=== PATIENT | male | born 1950 | race Caucasian/White ===

== ENCOUNTER → 2017-01-29 | Outpatient (CLI) | payer BC ==
[~2017-01-29] MED LIST: AMLO-110 PO; ASPI325T45 PO; ESCI10TA17 PO; FLEC50TA20 PO; LORA-741 PO; LOSA1TAB38 PO; METO50TA16 PO
[2017-01-29 13:23] LABS: HEMATOCRIT 43.5 % (42-52); MEAN CELL VOLUME 89.7 fL (80-100); MEAN CORPUSCULAR HGB CONC 35.6 g/dl (32-36); PLATELET COUNT 207 K/uL (130-400); RED BLOOD COUNT 4.85 M/uL (4.7-6.1); WHITE BLOOD COUNT 5.17 K/uL (4.8-10.8)
[2017-01-29 13:42] LABS: ALT/SGPT 30 U/L (12-78); BLOOD UREA NITROGEN 12 mg/dl (7-18); CALCIUM 8.5 mg/dl (8.5-10.1); CARBON DIOXIDE 25 mmol/L (21-32); CHLORIDE 100 mmol/L (98-107); CHOLESTEROL 180 mg/dl (0-200); CREATININE 0.96 mg/dl (0.60-1.40); GLUCOSE 95 mg/dl (70-99); POTASSIUM 4.3 mmol/L (3.5-5.1); SODIUM 133 mmol/L (136-145)
[2017-01-29 13:52] LABS: ALB/GLOB RATIO 1.3 (0.9-2); ALKALINE PHOSPHATASE 52 U/L (45-117); AST/SGOT 26 U/L (15-37); CHOLESTEROL/HDL RATIO 3.1; HDL CHOLESTEROL 58 mg/dl; LDL CHOLESTEROL CALCULATED 109 mg/dl; THYROID STIMULATING HORMONE 0.662 uIu/ml (0.300-4.500); TRIGLYCERIDES 64 mg/dl (0-150); VERY LOW DENSITY LIPOPROT CALC 13 mg/dl
--- NOTE | 2017-02-05 07:14 | CODING QUERY MEDICAL NECESSITY ---
SUPPORTING DIAGNOSIS NEEDED A supporting diagnosis is required for the test/procedure performed on this patient in order for us to be reimbursed by the patient's insurance. Please provide a supporting diagnosis for the following test/procedure listed below next to the test name along with your signature. *If there is no additional diagnosis for this patient that would support the following test/procedure please document that below next to the test/procedure. Test(s)/Procedure(s) that require a supporting diagnosis: * PSA DIAGNOSIS: * DOS: 01/29/17 Provider Signature: Date: Thank you Noy Rascon [facility] Once completed, please kindly fax back to [phone] For questions please call [phone]
== END | disposition home or self-care (01) ==
LOC: C.LABBC 09:29
PROVIDERS: ATTEND Internal Medicine Geriatric Medicine
DX: Z00.00 Encounter for general adult medical examination without abnormal findings (principal); I10 Essential (primary) hypertension; I71.2 Thoracic aortic aneurysm, without rupture; I48.0 Paroxysmal atrial fibrillation; E87.1 Hypo-osmolality and hyponatremia; Z12.5 Encounter for screening for malignant neoplasm of prostate

== ENCOUNTER → 2017-02-10 | Outpatient (CLI) | payer BC ==
--- NOTE | 2017-02-10 12:09 | DIAGNOSTIC IMAGING REPORT ---
CHEST 2 VIEWS ROUTINE CLINICAL HISTORY: J06.9 Acute upper respiratory infection dyspnea COMPARISON STUDY: 08/17/2015 FINDINGS: Possible small parenchymal infiltrate versus nodule right upper lung. Lungs otherwise appear clear. Mild emphysematous change. IMPRESSION: Small parenchymal infiltrate versus potential overlap/nodular process right suprahilar region. CT of the chest is recommended as follow-up Electronically signed by: Sean Marcus M.D. 02/10/2017 12:08 PM Dictated Date/Time: 02/10/2017 12:07 PM
== END | disposition home or self-care (01) ==
LOC: C.RADBC 11:49
PROVIDERS: ATTEND Internal Medicine Geriatric Medicine
DX: J06.9 Acute upper respiratory infection, unspecified (principal); R91.8 Other nonspecific abnormal finding of lung field

== ENCOUNTER → 2017-02-13 | Outpatient (CLI) | payer BC ==
[~2017-02-13] MED LIST changes: +OPTIRAY 320 IV PRN
--- NOTE | 2017-02-13 15:43 | DIAGNOSTIC IMAGING REPORT ---
CT SCAN OF THE CHEST WITH IV CONTRAST CLINICAL HISTORY: Abnormal chest x-ray. COMPARISON STUDY: Chest CT dated 01/08/2016. TECHNIQUE: Following the IV administration of 93 chest x-ray dated 02/10/2017. cc of Optiray 320, CT scan of the thorax was performed from the thoracic inlet to the upper abdomen. Images are reviewed in the axial, sagittal, and coronal planes. IV contrast was administered without complication. CT DOSE: 625.17 mGycm FINDINGS: Thyroid: Imaged portions of the thyroid gland are normal in size and attenuation. Thoracic aorta: There is mild aneurysmal dilatation of the ascending thoracic aorta which measures up to 4.5 cm in diameter. The right of the thoracic aorta is normal in caliber in the arch demonstrates standard 3-vessel anatomy. No dissection is seen. Pulmonary vasculature: The pulmonary trunk is normal in caliber. There are no filling defects identified in the central pulmonary vessels to indicate pulmonary embolus. Note that this examination was not protocoled for evaluation of the pulmonary arteries. Heart: The heart is enlarged and there is trace pericardial effusion. There are coronary artery calcifications. Lungs and pleural spaces: There is no airspace consolidation or pleural effusion. The trachea and central airways are clear. A 3 mm pulmonary nodule in the lingula on image #183 and a 3 mm pleural-based nodule in the lingula on image #191 are unchanged. Dependent atelectasis is observed. There is no concerning lesion identified in the right upper lobe at the site of the radiographically question abnormality. Mediastinum: There is no mediastinal lymphadenopathy. Laurence: Clear. Axillae: There is no axillary lymphadenopathy. Upper abdomen: There is a small hiatal hernia. A 1.5 cm cyst is noted in the left lobe of the liver. Partially visualized upper abdominal viscera is otherwise within normal limits. Skeletal structures: The skeletal structures are osteopenic. No lytic or blastic bony lesions are seen. IMPRESSION: 1. There is no concerning pulmonary lesion identified. The right upper lobe abnormality questioned by x-ray on 02/10/2017 was likely artifactual. 2. Cardiomegaly. 3. There is mild aneurysmal dilatation of the ascending thoracic aorta which measures up to 4.5 cm. Nonemergent thoracic surgical assessment is recommended. 4. The remainder of the thoracic aorta is normal in caliber. 5. There is no airspace consolidation or pleural effusion. 6. There are low suspicion 3 mm pulmonary and pleural-based nodules in the lingula which are unchanged. These can be followed if clinically warranted. See below. Please refer to below summary of Fleischner criteria recommendations for follow-up of incidental CT nodules (Jorge Kay, Guidelines for management of small pulmonary nodules detected on CT scans: A statement from the Fleischner Society, Radiology 237: [phone].) Low Risk Patient: Minimal or no smoking or other known risk factors for malignancy <=4 mm: No follow-up needed. >4-6 mm: Initial follow-up CT at 12 months; if unchanged, no further follow-up. >6-8 mm: Initial follow-up CT at 6-12 months then at 18-24 months if no change. >8 mm: Follow-up CT at \R\3, 9, 24 months, or PET and/or biopsy. High Risk Patient: History of smoking or other known risk factors <=4 mm: Follow-up at 12 months; if unchanged, no further follow-up. >4-6 mm: Initial follow-up CT at 6-12 months then at 18-24 months if no change. >6-8 mm: Initial follow-up CT at 3-6 months then at 9-12 and 24 months if no change. >8 mm: Same as low risk patient. Note: Nodule size measured as average of length and width. Ground glass or partly solid nodules may require longer follow-up to exclude indolent adenocarcinoma. Electronically signed by: Zechariah Stevens M.D. 02/13/2017 3:42 PM Dictated Date/Time: 02/13/2017 3:35 PM
== END | disposition home or self-care (01) ==
LOC: C.CTS 13:28
PROVIDERS: ATTEND Internal Medicine Geriatric Medicine
DX: R93.8 Abnormal findings on diagnostic imaging of other specified body structures (principal); I51.7 Cardiomegaly; R91.8 Other nonspecific abnormal finding of lung field; I71.2 Thoracic aortic aneurysm, without rupture

== ENCOUNTER → 2017-05-06 | Outpatient (CLI) | payer BC ==
[~2017-05-06] MED LIST changes: -OPTIRAY 320 IV PRN
== END | disposition home or self-care (01) ==
LOC: C.LABBC 08:19
PROVIDERS: ATTEND Internal Medicine Geriatric Medicine
DX: Z11.59 Encounter for screening for other viral diseases (principal); L03.115 Cellulitis of right lower limb

== ENCOUNTER → 2017-05-06 | Outpatient (CLI) | payer BC ==
--- NOTE | 2017-05-06 15:59 | DIAGNOSTIC IMAGING REPORT ---
RIGHT ANKLE 3 VIEWS CLINICAL HISTORY: Cellulitis. Laceration. FINDINGS: 3 views of the right ankle are obtained. No prior studies are available for comparison at the time of dictation. The skeletal structures are osteopenic. No fracture is identified. The ankle mortise is intact. No periostitis or bony erosion is seen. There is no joint effusion. Soft tissue edema is present in the calf and around the ankle. IMPRESSION: Soft tissue swelling with no acute bony abnormality identified. Electronically signed by: Zechariah Stevens M.D. 05/06/2017 3:58 PM Dictated Date/Time: 05/06/2017 3:56 PM
== END | disposition home or self-care (01) ==
LOC: C.RADBC 15:34
PROVIDERS: ATTEND Physician Assistant
DX: L03.115 Cellulitis of right lower limb (principal)

== ENCOUNTER → 2017-06-27 | Outpatient (CLI) | payer BC ==
--- NOTE | 2017-06-27 10:30 | DIAGNOSTIC IMAGING REPORT ---
KUB CLINICAL HISTORY: 67 years-old Male presenting with History of kidney stones. TECHNIQUE: Single supine view of the abdomen was obtained. COMPARISON: 07/11/2015. FINDINGS: Stool mildly degrades evaluation for renal calcifications. 3 mm calcification projects over the right kidney, likely consistent with calculus. Nonobstructive bowel gas pattern. No gross pneumoperitoneum. Lung bases clear. Numerous surgical clips project over the right inguinal region. IMPRESSION: 1. Unchanged appearance of the small right renal calculus. Electronically signed by: Moise Bowens M.D. 06/27/2017 10:29 AM Dictated Date/Time: 06/27/2017 10:27 AM
[2017-06-27 13:39] LABS: URINE APPEARANCE CLEAR (CLEAR); URINE BILIRUBIN NEG (NEG); URINE COLOR YELLOW; URINE NITRITE NEG (NEG); URINE PH 7.5 (4.5-7.5); URINE SPECIFIC GRAVITY 1.016 (1.000-1.030); UROBILINOGEN NEG (NEG)
[2017-06-27 13:44] LABS: MANUAL MICROSCOPIC REQUIRED? NO; REVIEW REQ? NO
== END | disposition home or self-care (01) ==
LOC: C.RADBC 09:59
PROVIDERS: ATTEND Physician Assistant Medical
DX: M54.5 Low back pain (principal); Z87.442 Personal history of urinary calculi

== ENCOUNTER → 2017-08-28 | Outpatient (CLI) | payer BC ==
[2017-08-28 13:41] LABS: ALB/GLOB RATIO 1.3 (0.9-2); ALT/SGPT 24 U/L (12-78); AST/SGOT 17 U/L (15-37); BLOOD UREA NITROGEN 12 mg/dl (7-18); BUN/CREATININE RATIO 14.4 (10-20); CALCIUM 8.5 mg/dl (8.5-10.1); CARBON DIOXIDE 21 mmol/L (21-32); CHLORIDE 102 mmol/L (98-107); CREATININE 0.83 mg/dl (0.60-1.40); GLUCOSE 96 mg/dl (70-99); POTASSIUM 4.5 mmol/L (3.5-5.1); SODIUM 131 mmol/L (136-145)
[2017-08-28 13:44] LABS: ALKALINE PHOSPHATASE 58 U/L (45-117); CHOLESTEROL 198 mg/dl (0-200); CHOLESTEROL/HDL RATIO 3.2; HDL CHOLESTEROL 62 mg/dl; LDL CHOLESTEROL CALCULATED 122 mg/dl; TRIGLYCERIDES 69 mg/dl (0-150); VERY LOW DENSITY LIPOPROT CALC 14 mg/dl
[2017-08-28 15:59] LABS: LYME DISEASE AB IGG NEG (NEG); LYME DISEASE AB IGM NEG (NEG)
== END | disposition home or self-care (01) ==
LOC: C.LABBC 10:18
PROVIDERS: ATTEND Internal Medicine Geriatric Medicine
DX: I10 Essential (primary) hypertension (principal); E87.1 Hypo-osmolality and hyponatremia; I25.10 Atherosclerotic heart disease of native coronary artery without angina pectoris; T14.8 Other injury of unspecified body region; W57.XXXA Bitten or stung by nonvenomous insect and other nonvenomous arthropods, initial encounter

== ENCOUNTER → 2017-11-05 | Outpatient (CLI) | payer BC ==
--- NOTE | 2017-11-05 09:34 | DIAGNOSTIC IMAGING REPORT ---
L FINGER(S) MIN 2 VIEWS ROUTINE CLINICAL HISTORY: Left thumb pain. No known trauma. COMPARISON: None FINDINGS: Alignment of the left thumb is anatomic. No fracture is identified. An 8 mm ovoid sclerotic focus within the distal phalanx of the left thumb has benign imaging characteristics. There is a 1.3 cm lucent lesion with thin sclerotic rim within the base of the left first metacarpal. There is moderate joint space narrowing and osteophytosis of the left first carpometacarpal joint. IMPRESSION: 1. 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 2. 1.3 cm lucent lesion with thin sclerotic margin within the base of the left first metacarpal. This has benign imaging characteristics and reflect a benign lucent lesion or be related to osteoarthritis of the adjacent joint. Electronically signed by: Panchito Juarez M.D. 11/05/2017 9:33 AM Dictated Date/Time: 11/05/2017 9:29 AM
== END | disposition home or self-care (01) ==
LOC: C.RADBC 09:02
PROVIDERS: ATTEND Physician Assistant
DX: M79.645 Pain in left finger(s) (principal)

== ENCOUNTER → 2018-01-20 | Outpatient (CLI) | payer BC ==
[~2018-01-20] MED LIST changes: +AMLODIPINE PO; +ASPI325T39 PO; +LOSARTAN POTASSIUM PO; +METOPROLOL PO; +OMEG10007 PO; +OPTIRAY 320 IV PRN; +TURM1CAP4 PO
--- NOTE | 2018-01-20 11:46 | DIAGNOSTIC IMAGING REPORT ---
CT CHEST ANGIO WITH CONTRAST CT DOSE: 829.30 mGycm CLINICAL HISTORY: Aneurysm of the ascending thoracic aorta TECHNIQUE: CT angiography was performed in a dynamic helical fashion during intravenous administration of 93 cc of Optiray 320. MIP imaging was performed. A dose lowering technique was utilized adhering to the principles of ALARA. COMPARISON STUDY: January 2017 FINDINGS: No thyroid masses are visualized. There is mild aneurysmal dilatation of the ascending thoracic aorta which measures 44 mm in diameter. This remains unchanged the prior study. There are notable flaps to indicate an aortic dissection. The heart is mildly enlarged. There are minimal coronary artery calcifications. There are no pathologically enlarged, axillary, mediastinal, or hilar lymph nodes. There are no pleural effusions. There is no focal pulmonary consolidation. There are mild dependent atelectatic changes. There are few scattered tiny pulmonary nodules within the right middle lobe and lingula, the largest of which measures 4 mm. In a low risk patient, no further follow-up is indicated. IMPRESSION: 1. Stable mild aneurysmal dilatation of the ascending thoracic aorta which measures 4.5 cm 2. No evidence of pathologic adenopathy 3. Stable mild cardiomegaly 4. Stable low suspicion subcentimeter pulmonary nodules. The absence of high risk factors, no further follow-up is indicated Electronically signed by: Byron Navarro M.D. 01/20/2018 11:45 AM Dictated Date/Time: 01/20/2018 11:38 AM
== END | disposition home or self-care (01) ==
LOC: C.CTS 10:22
PROVIDERS: ATTEND Specialist
DX: I71.2 Thoracic aortic aneurysm, without rupture (principal); I51.7 Cardiomegaly; R91.8 Other nonspecific abnormal finding of lung field

== ENCOUNTER → 2018-02-02 | Day surgery (SDC) | payer BC ==
[2018-01-21 07:41] VITALS: Ht 182.9 cm; Wt 107.3 kg
[~2018-02-02] VITALS: Ht 182.9 cm; Wt 107.3 kg
[~2018-02-02] MED LIST changes: -AMLO-110 PO; +APIX1TAB3 PO; -ASPI325T45 PO; +ATROPINE SULFATE 0.1 MG/ML 5ML SYR IV PRN; +CEFAZOLIN 2000MG IV PUSH 15 ML IV SCH; -ESCI10TA17 PO; +EpHEDrine SULFATE INJ 50 MG/ML AMP IV PRN; +FENTANYL CITRATE INJ 50 MCG/1 ML 2 ML VIAL ONE; +LACTATED RINGER'S 1000ML 1,000 ML IV SCH; +LIDOCAINE HCL 2% 2 ML VIAL (20MG/ML) ONE; +LIDOCAINE HCL 2% LOCAL 20 ML VIAL ONE; -LORA-741 PO; -LOSA1TAB38 PO; -METO50TA16 PO; +METOCLOPRAMIDE HCL INJ 5 MG/ML 2 ML VIAL IV PRN; +MIDAZOLAM HCL 1 MG/ML 2ML VIAL ONE; +ONDANSETRON INJ 2 MG/ML 2 ML VIAL IV PRN; -OPTIRAY 320 IV PRN; +PROPOFOL IV EMULSION 10 MG/ML 20 ML VIAL IV ONE; +SODIUM CHLORIDE 0.9% 1000ML 1,000 ML IV SCH; +TRAMADOL HCL 50 MG TAB PO PRN
--- NOTE | 2018-02-02 06:13 | Discharge Instructions ---
Discharge Instructions Date of Service Feb 02, 2018. Visit Reason for Visit: Left Thumb Gnaglion Cyst Discharge Discharge Diagnosis / Problem: Excision ganglion thumb Discharge Goals Goal(s): Decrease discomfort, Improve function Activity Recommendations Activity Limitations: as noted below Anesthesia . Post Anesthesia Instructions: If you have had General Anesthesia or IV Sedation: * Do not drive today. * Resume driving when surgeon permits. * Do not make important decisions or sign legal documents today. * Call surgeon for: 1. Temperature elevations greater than 101 degrees F. 2. Uncontrollable pain. 3. Excessive bleeding. 4. Persistent nausea and vomiting. 5. Medication intolerance (nausea, vomiting or rash). * For nausea and vomiting use only clear liquids such as: tea, soda, bouillon until nausea subsides, then gradually increase diet as tolerated. * If you have any concerns or questions, call your surgeon's office. If physician is unavailable and it is an emergency, call 911 or go to the nearest emergency room. . Instructions / Follow-Up Instructions / Follow-Up keep dressing on for 3 days then may remove and shower, cover with a band-aid, follow-up in [address] Back Diet Recommendations Recommended Home Diet: no limitations Pending Studies Studies pending at discharge: no Medical Emergencies . Who to Call and When: Medical Emergencies: If at any time you feel your situation is an emergency, please call 911 immediately. . Non-Emergent Contact Non-Emergency issues call your: Surgeon Call Non-Emergent contact if: wound has increased drainage, wound has increased redness . . "Provider Documentation" section prepared by Ant Back. .
--- NOTE | 2018-02-02 06:41 | History & Physical Bridge - SC ---
H&P Re-Evaluation Bridge Note: I have examined the patient, reviewed the History & Physical and in the interval since the performance of the History & Physical I have noted the following changes of clinical significance: No changes noted
--- NOTE | 2018-02-02 07:15 | [facility] Post Operative Brief Note ---
Immediate Operative Summary Operative Date Feb 02, 2018. Pre-Operative Diagnosis Left Thumb Ganglion Cyst Post-Operative Diagnosis same Procedure(s) Performed Left Thumb Ganglion Cyst Excision Surgeon Dr. Harry Back Tanker Driver Surgeon(s) [facility] Estimated Blood Loss 5CC Findings Consistent with Post-Op Diagnosis Specimens NONE Anesthesia Type MAC Complication(s) none Disposition Disposition: Recovery Room / PACU
[2018-02-02 07:17] VITALS: TEMP 36.5
[2018-02-02 07:52] VITALS: BP 135/80; PULSE 45; O2SAT 97
--- NOTE | 2018-02-02 08:00 | Anesthesia Progress Nt - [facility] ---
Anesthesia Post Op Note Date & Time Feb 02, 2018 at 08:00 Vital Signs Pain Intensity: 0 Vital Signs Past 12 Hours Date Time Temp Pulse Resp B/P (MAP) Pulse Ox O2 Delivery O2 Flow Rate FiO2 02/02/18 07:52 45 16 135/80 (98) 97 Room Air 02/02/18 07:17 36.5 46 16 110/65 (80) 94 Room Air 02/02/18 06:30 36.8 48 16 154/93 (113) 98 Room Air Notes Mental Status: alert / awake / arousable, participated in evaluation Pt Amnestic to Procedure: Yes Nausea / Vomiting: adequately controlled Pain: adequately controlled Airway Patency, RR, SpO2: stable & adequate BP & HR: stable & adequate Hydration State: stable & adequate Anesthetic Complications: no major complications apparent
--- NOTE | 2018-02-02 18:13 | OPERATIVE REPORT ---
DATE OF OPERATION: 02/02/2018 PREOPERATIVE DIAGNOSIS: Ganglion cyst of the left thumb. POSTOPERATIVE DIAGNOSIS: Same. PROCEDURE: Excision ganglion cyst of the left thumb. SURGEON: Dr. Ant Back. HORSE RACE TIMER: None. ANESTHESIA: Local with sedation. COMPLICATIONS: None. CONDITION: Stable to PACU. INDICATIONS: Lobito is a pleasant 67-year-old male who presented to my office with complaints of a mass on the radial aspect of his left thumb. Clinical examination was diagnostic for a ganglion cyst. After failing conservative treatment, he elected to undergo open excision. DESCRIPTION OF PROCEDURE: On 02/02/2018, he arrived at [facility] for the above procedure. He was seen in the preoperative holding and the operative extremity was identified and signed, given a preoperative antibiotic, taken back to the operating room, laid on the table in supine position, and given a basic sedation. The left thumb was then prepped and draped in sterile fashion. A time-out was done, the patient's operative extremity was properly identified. A digital block was done using 5 mL of lidocaine. A small incision was then made directly over the ganglion. Dissection was taken down through the fascia with care not to disrupt the digital nerves. The ganglion was identified and easily excised. There was a rather large ganglion. Care was taken to ensure complete excision of the stalk. The wound was then irrigated, closed with 4-0 nylon suture. I then placed in a soft dressing and taken to the postanesthesia care unit in stable condition. He tolerated the procedure well. I attest to the content of the Intraoperative Record and any orders documented therein. Any exception s are noted below.
== END | disposition home or self-care (01) ==
LOC: X.SURG 06:15
PROVIDERS: ATTEND Orthopaedic Surgery
DX: M67.442 Ganglion, left hand (principal); I48.91 Unspecified atrial fibrillation; I10 Essential (primary) hypertension; F32.9 Major depressive disorder, single episode, unspecified; Z88.8 Allergy status to other drugs, medicaments and biological substances; M06.9 Rheumatoid arthritis, unspecified; Z79.82 Long term (current) use of aspirin

== ENCOUNTER 2018-04-11 07:53 | Emergency (ER) | payer BC ==
[~2018-04-11] VITALS: Ht 182.9 cm; Wt 106.8 kg
[~2018-04-11 07:53] MED LIST changes: -ATROPINE SULFATE 0.1 MG/ML 5ML SYR IV PRN; -CEFAZOLIN 2000MG IV PUSH 15 ML IV SCH; -EpHEDrine SULFATE INJ 50 MG/ML AMP IV PRN; -FENTANYL CITRATE INJ 50 MCG/1 ML 2 ML VIAL ONE; -LACTATED RINGER'S 1000ML 1,000 ML IV SCH; -LIDOCAINE HCL 2% 2 ML VIAL (20MG/ML) ONE; -LIDOCAINE HCL 2% LOCAL 20 ML VIAL ONE; -METOCLOPRAMIDE HCL INJ 5 MG/ML 2 ML VIAL IV PRN; -MIDAZOLAM HCL 1 MG/ML 2ML VIAL ONE; -ONDANSETRON INJ 2 MG/ML 2 ML VIAL IV PRN; -PROPOFOL IV EMULSION 10 MG/ML 20 ML VIAL IV ONE; -SODIUM CHLORIDE 0.9% 1000ML 1,000 ML IV SCH; -TRAMADOL HCL 50 MG TAB PO PRN
[2018-04-11 07:58] VITALS: TEMP 36.4; Ht 182.9 cm; Wt 106.8 kg
[2018-04-11 08:15] VITALS: O2SAT 98
[2018-04-11] MEDS ORDERED: SODIUM CHLORIDE 0.9% 1000ML 1,000 ML IV STA (08:18)
[2018-04-11] MEDS ORDERED: MECLIZINE HCL 25 MG TAB PO STA (08:18)
[2018-04-11] MEDS ORDERED: ONDANSETRON INJ 2 MG/ML 2 ML VIAL IV STA (08:18)
[2018-04-11] MEDS ORDERED: SODIUM CHLORIDE 0.9% 500ML 500 ML IV STA (08:20)
[2018-04-11 08:44] LABS: BASO % 0.2 %; BASO ABS # 0.01 K/uL (0-0.2); EOS % 0.7 %; EOS ABS # 0.04 K/uL (0-0.5); HEMOGLOBIN 15.9 g/dL (14.0-18.0); IG# 0.05 K/uL (0.00-0.02); LYMPH % 15.2 %; LYMPH ABS # 0.83 K/uL (1.2-3.4); MEAN CELL VOLUME 89.8 fL (80-100); MEAN CORPUSCULAR HEMOGLOBIN 32.4 pg (25-34); MEAN CORPUSCULAR HGB CONC 36.1 g/dl (32-36); MEAN PLATELET VOLUME 8.3 fL (7.4-10.4); MONO % 6.8 %; MONO ABS # 0.37 K/uL (0.11-0.59); NEUT % 76.2 %; NEUT ABS # 4.16 K/uL (1.4-6.5); PLATELET COUNT 174 K/uL (130-400); RED CELL DISTRIBUTION WIDTH CV 12.4 % (11.5-14.5); RED CELL DISTRIBUTION WIDTH SD 40.2 fL (36.4-46.3); WHITE BLOOD COUNT 5.46 K/uL (4.8-10.8)
[2018-04-11 08:57] LABS: INR 1.1 (0.9-1.1)
[2018-04-11 09:06] LABS: BLOOD UREA NITROGEN 9 mg/dl (7-18); CALCIUM 8.5 mg/dl (8.5-10.1); CARBON DIOXIDE 25 mmol/L (21-32); CREATININE 0.89 mg/dl (0.60-1.40); GLUCOSE 134 mg/dl (70-99); POTASSIUM 3.8 mmol/L (3.5-5.1); SODIUM 132 mmol/L (136-145)
[2018-04-11] MEDS ORDERED: METO50TA16 PO (09:06)
[2018-04-11] MEDS ORDERED: ESCI10TA17 PO (09:06)
[2018-04-11] MEDS ORDERED: AMLO-110 PO (09:06)
[2018-04-11] MEDS ORDERED: LORA-741 PO (09:06)
[2018-04-11] MEDS ORDERED: LOSA100T65 PO (09:06)
[2018-04-11 09:12] LABS: CKMB 5.4 ng/ml (0.5-3.6); LIPASE 105 U/L (73-393)
--- NOTE | 2018-04-11 09:13 | DIAGNOSTIC IMAGING REPORT ---
CHEST ONE VIEW PORTABLE HISTORY: 67 years-old Male EVALUATE ALTERED MENTAL STATUS/WEAKNESS acutely altered mental status with weakness COMPARISON: Chest radiograph 02/10/2017 TECHNIQUE: Portable AP view of the chest FINDINGS: Cardiac silhouette is mildly enlarged. There is mild pulmonary vascular congestion with interstitial coarsening. Subsegmental bibasilar opacities are noted. No pneumothorax. No large pleural effusion. The bones appear grossly intact. IMPRESSION: 1. Cardiomegaly with mild pulmonary vascular congestion. 2. Subsegmental bibasilar opacities suggest atelectasis. The above report was generated using voice recognition software. It may contain grammatical, syntax or spelling errors. Electronically signed by: Matthew Ivey M.D. 04/11/2018 9:12 AM Dictated Date/Time: 04/11/2018 9:10 AM
--- NOTE | 2018-04-11 09:18 | EMERGENCY ROOM VISIT NOTE ---
History Report prepared by Angelia: Luc Cox Under the Supervision of: Dr. Gary Kitchen D.O. First contact with patient: 08:12 Chief Complaint: DIZZY Stated Complaint: DIZZY,SICK Nursing Triage Summary: pt reports increased urination last night then this am started feeling dizzy. took 2 ativan has for anxiety. has been dx in past with vertigo does not take meds for. started getting hot and cold then started feeling nauseated then moved bowels shortly after feeling. 3 days ago had tick bite and went to dr steward given 2 doxy to take. recently prescribed eliquis 3 weeks ago. pt reports sensitivty to meds thinks this is related to eliquis, tick bite or is panic attack History of Present Illness The patient is a 67 year old male who presents to the Emergency Room with complaints of persistent dizziness starting last night. The patient states that it feels like the room is spinning. The patient states that he has a history of panic attacks, and he thought that he was having one so he took two Ativan around 0400 this morning. He notes that he is having hot and cold flashes, nausea, and increased urination since last night. The patient notes that this morning he had a large bowel movement as well, and it was not diarrhea. He denies any chest pain, shortness of breath, headache, and recent traumas. The patient additionally notes that he was recently bit by a tick, and he was recently put on Eliquis for A-fib. He reports that he has been eating and drinking normally recently. Source of History: patient Onset: last night Position: other (generalized) Quality: other (dizzy) Timing: other (persistent) Associated Symptoms: + nausea, No headache, No chest pain, No SOB Note: Associated symptoms: Hot and cold flashes, and increased urination Review of Systems See HPI for pertinent positives & negatives. A total of 10 systems reviewed and were otherwise negative. Past Medical & Surgical Medical Problems: (1) Ascending aorta enlargement (2) Atrial fibrillation (3) Hypertension Family History Cancer Diabetes mellitus Hypertension Kidney disease Stroke Social History Smoking Status: Never Smoker Drug Use: none Marital Status: Housing Status: lives with significant other Occupation Status: retired Current/Historical Medications Scheduled Amlodipine (Norvasc), 5 MG PO DAILY Apixaban (Eliquis), 2.5 MG PO BID Escitalopram (Lexapro), 10 MG PO DAILY Flecainide (Tambocor), 50 MG PO BID Lorazepam (Ativan), 0.5 MG PO DAILY Losartan Potassium (Cozaar), 100 MG PO DAILY Metoprolol Tartrate (Lopressor) (Lopressor), 50 MG PO BID Allergies Coded Allergies: Venlafaxine (Verified Allergy, Unknown, IRREGULAR HEART BEAT, 04/11/18) Warfarin (Verified Allergy, Unknown, RASH, 04/11/18) Bupropion (Verified Adverse Reaction, Severe, IRREGULAR HEARTBEAT/NAUSEA, 04/11/18) Paroxetine (Verified Adverse Reaction, Severe, IRREGULAR HEARTBEAT/NAUSEA , 04/11/18) Physical Exam Vital Signs Date Time Temp Pulse Resp B/P (MAP) Pulse Ox O2 Delivery O2 Flow Rate FiO2 04/11/18 09:25 58 22 133/88 97 Room Air 04/11/18 08:18 55 04/11/18 08:15 98 Room Air 04/11/18 08:12 55 148/84 62 138/88 63 159/95 04/11/18 07:58 36.4 61 20 155/96 98 Room Air Physical Exam VITAL SIGNS: were reviewed as above. GENERAL:Non-toxic in appearance. SKIN: Warm dry and pink. HEAD: Normocephalic and atraumatic. OROPHARYNX: Is clear and moist NECK: Supple without lymphadenopathy or meningismus. LUNGS: clear. HEART: Regular rate and rhythm. ABDOMEN: Soft and nontender. EXTREMITIES: Warm and well perfused. NEUROLOGICALLY: Awake alert and oriented without focal deficit. Cranial nerves 2 -12 are intact. There is no pronator drift. Cerebellar testing is within normal limits. There is no nystagmus. There is no facial droop. Speech is clear. Vision is grossly normal. MUSCULOSKELETAL: Good muscle tone. No evidence of trauma. Medical Decision & Procedures ER Provider Diagnostic Interpretation: Radiology results as stated below per my review and radiologist interpretation: CHEST ONE VIEW PORTABLE HISTORY: 67 years-old Male EVALUATE ALTERED MENTAL STATUS/WEAKNESS acutely altered mental status with weakness COMPARISON: Chest radiograph 02/10/2017 TECHNIQUE: Portable AP view of the chest FINDINGS: Cardiac silhouette is mildly enlarged. There is mild pulmonary vascular congestion with interstitial coarsening. Subsegmental bibasilar opacities are noted. No pneumothorax. No large pleural effusion. The bones appear grossly intact. IMPRESSION: 1. Cardiomegaly with mild pulmonary vascular congestion. 2. Subsegmental bibasilar opacities suggest atelectasis. The above report was generated using voice recognition software. It may contain grammatical, syntax or spelling errors. Electronically signed by: Matthew Ivey M.D. 04/11/2018 9:12 AM Dictated Date/Time: 04/11/2018 9:10 AM Laboratory Results 04/11/18 08:30 Red Blood Count 4.90, Mean Corpuscular Volume 89.8, Mean Corpuscular Hemoglobin 32.4, Mean Corpuscular Hemoglobin Concent 36.1, Mean Platelet Volume 8.3, Neutrophils (%) (Auto) 76.2, Lymphocytes (%) (Auto) 15.2, Monocytes (%) (Auto) 6.8, Eosinophils (%) (Auto) 0.7, Basophils (%) (Auto) 0.2, Neutrophils # (Auto) 4.16, Lymphocytes # (Auto) 0.83, Monocytes # (Auto) 0.37, Eosinophils # (Auto) 0.04, Basophils # (Auto) 0.01 04/11/18 08:30 Test 04/11/18 08:30 04/11/18 08:40 White Blood Count 5.46 K/uL (4.8-10.8) Red Blood Count 4.90 M/uL (4.7-6.1) Hemoglobin 15.9 g/dL (14.0-18.0) Hematocrit 44.0 % (42-52) Mean Corpuscular Volume 89.8 fL (80-100) Mean Corpuscular Hemoglobin 32.4 pg (25-34) Mean Corpuscular Hemoglobin Concent 36.1 g/dl (32-36) Platelet Count 174 K/uL (130-400) Mean Platelet Volume 8.3 fL (7.4-10.4) Neutrophils (%) (Auto) 76.2 % Lymphocytes (%) (Auto) 15.2 % Monocytes (%) (Auto) 6.8 % Eosinophils (%) (Auto) 0.7 % Basophils (%) (Auto) 0.2 % Neutrophils # (Auto) 4.16 K/uL (1.4-6.5) Lymphocytes # (Auto) 0.83 K/uL (1.2-3.4) Monocytes # (Auto) 0.37 K/uL (0.11-0.59) Eosinophils # (Auto) 0.04 K/uL (0-0.5) Basophils # (Auto) 0.01 K/uL (0-0.2) RDW Standard Deviation 40.2 fL (36.4-46.3) RDW Coefficient of Variation 12.4 % (11.5-14.5) Immature Granulocyte % (Auto) 0.9 % Immature Granulocyte # (Auto) 0.05 K/uL (0.00-0.02) Prothrombin Time 11.4 SECONDS (9.0-12.0) Prothromb Time International Ratio 1.1 (0.9-1.1) Activated Partial Thromboplast Time 25.0 SECONDS (21.0-31.0) Partial Thromboplastin Ratio 1.0 Anion Gap 6.0 mmol/L (3-11) Est Creatinine Clear Calc Drug Dose 100.3 ml/min Estimated GFR () 101.8 Estimated GFR (Non- 87.9 BUN/Creatinine Ratio 9.7 (10-20) Calcium Level 8.5 mg/dl (8.5-10.1) Magnesium Level 2.2 mg/dl (1.8-2.4) Total Creatine Kinase 226 U/L (39-308) Creatine Kinase MB 5.4 ng/ml (0.5-3.6) Creatine Kinase MB Ratio 2.4 (0-3.0) Troponin I < 0.015 ng/ml (0-0.045) Lipase 105 U/L (73-393) Urine Color YELLOW Urine Appearance CLEAR (CLEAR) Urine pH 7.0 (4.5-7.5) Urine Specific [place] 1.017 (1.000-1.030) Urine Protein NEG (NEG) Urine Glucose (UA) NEG (NEG) Urine Ketones NEG (NEG) Urine Occult Blood NEG (NEG) Urine Nitrite NEG (NEG) Urine Bilirubin NEG (NEG) Urine Urobilinogen NEG (NEG) Urine Leukocyte Esterase NEG (NEG) Urine WBC (Auto) 1-5 /hpf (0-5) Urine RBC (Auto) 0-4 /hpf (0-4) Urine Hyaline Casts (Auto) 1-5 /lpf (0-5) Urine Epithelial Cells (Auto) 10-20 /lpf (0-5) Urine Bacteria (Auto) NEG (NEG) Laboratory results as stated above per my review. Medications Administered Medications (Trade) Dose Ordered Sig/Robb Route Start Time Stop Time Status Last Admin Dose Admin Sodium Chloride 1,000 ml @ 999 mls/hr Q1H1M STAT IV 04/11/18 08:18 04/11/18 09:18 DC 04/11/18 08:38 999 MLS/HR Meclizine HCl (Antivert Tab) 25 mg NOW STAT PO 04/11/18 08:18 04/11/18 08:20 DC 04/11/18 08:39 25 MG Ondansetron HCl (Zofran Inj) 4 mg NOW STAT IV 04/11/18 08:18 04/11/18 08:20 DC 04/11/18 08:39 4 MG Sodium Chloride 500 ml @ 999 mls/hr Q31M STAT IV 04/11/18 08:20 04/11/18 08:50 DC 04/11/18 08:39 999 MLS/HR ECG Per My Interpretation Indication: weakness Rate (beats per minute): 53 Rhythm: sinus bradycardia Findings: 1st degree AV block, no ectopy, other (No ST elevation) ED Course 0812: Previous medical records were reviewed. The patient was evaluated in room A11. A complete history and physical examination was performed. 0818: Zofran 4mg IV, Meclizine 25mg PO, Sodium Chloride 1000 ml @ 999 mls/hr IV 0820: Sodium Chloride 500 ml @ 999 mls/hr IV 1039: On reevaluation, the patient is doing well. I discussed the results and findings with the patient. He verbalized agreement of the treatment plan. He was discharged home. Medical Decision Differential includes acute coronary syndrome, myocardial infarction, CVA, TIA, anemia, infection, pneumonia, UTI, pyelonephritis, poor nutrition, dehydration, electrolyte disturbance,hypoglycemia. This is a 67-year-old male who presents to the ED with a chief complaint of dizziness. The patient reports some increased urination last night. He also developed a little chills and diarrhea this morning. He states that the room was sweating this morning when he got up. He has some associated nausea. He states that he thought it might be related to anxiety and took a couple of Ativan. He does report a history of Eliquis and has been recently placed on Eliquis for atrial fibrillation 3 weeks ago. His physical exam was normal, neurologic exam was normal. Orthostatic vital signs are negative. His vital signs here are stable. The patient's blood work including a CBC, PRP and troponin were negative. Chest x-ray reveals mild pulmonary vascular congestion and atelectasis. The patient has no pulmonary symptoms to correlate to pulmonary edema. The patient was treated with meclizine, Zofran and IV fluids. He did take some Ativan earlier. On reassessment, the patient's symptoms have resolved and he is feeling better. He was discharged. Medication Reconcilliation Current Medication List: was personally reviewed by me Blood Pressure Screening Patient's blood pressure: Elevated blood pressure Blood pressure disposition: Referred to PCP Impression Primary Impression: Vertigo Scribe Attestation The scribe's documentation has been prepared under my direction and personally reviewed by me in its entirety. I confirm that the note above accurately reflects all work, treatment, procedures, and medical decision making performed by me. Departure Information Prescriptions Meclizine Hcl (MECLIZINE HCL) 25 Mg Tab 1 TAB PO TID Y for Dizziness or Vertigo for 10 Days, #30 TAB Prov: Gary Kitchen D.O. 04/11/18 Referrals Chato Steward M.D. (PCP) Patient Instructions ED Vertigo Unspecified, [facility] Additional Instructions Meclizine as prescribed for vertigo. Follow-up with your doctor for further care and evaluation in 1-2 days if symptoms persist. Return to the emergency department for worsening or new symptoms or any concerns. You have been examined and treated today on an emergency basis only. This is not a substitute for, or an effort to provide, complete comprehensive medical care. It is impossible to recognize and treat all injuries or illnesses in a single emergency department visit. It is therefore important that you follow up closely with your doctor. Call as soon as possible for an appointment.
[2018-04-11] MEDS ORDERED: MECL1TAB42 PO (10:43)
[2018-04-11 11:02] VITALS: BP 142/88; PULSE 58; O2SAT 97
== END 2018-04-11 11:03 | disposition home or self-care (01) ==
LOC: C.EDB 07:54 → C.EDA 11:03
DX: R42 Dizziness and giddiness (principal); F41.0 Panic disorder [episodic paroxysmal anxiety]; I48.91 Unspecified atrial fibrillation; I10 Essential (primary) hypertension; Z80.9 Family history of malignant neoplasm, unspecified; Z83.3 Family history of diabetes mellitus; Z82.49 Family history of ischemic heart disease and other diseases of the circulatory system; Z84.1 Family history of disorders of kidney and ureter; Z82.3 Family history of stroke; Z79.899 Other long term (current) drug therapy; Z79.01 Long term (current) use of anticoagulants; Z88.8 Allergy status to other drugs, medicaments and biological substances

== ENCOUNTER 2019-03-19 05:59 | Inpatient (IN) ==
--- NOTE | 2019-02-01 11:17 | PAT Medication Instructions ---
Medication Instructions Date of Service February 01, 2019 Home Medications amlodipine 5 mg PO QPM apixaban [Eliquis] 5 mg PO BID escitalopram oxalate [Lexapro] 10 mg PO QPM flecainide 50 mg PO Q12H lorazepam 0.5 mg PO HS losartan 100 mg PO QAM metoprolol tartrate 1 dose PO BID multivitamin 1 tab PO QAM ASK your prescriber and surgeon apixaban [Eliquis] 5 mg PO BID (will need to be held 72 hours prior to surgery in order for spinal anesthesia- please check if okay with prescriber) DO NOT take the morning of surgery losartan 100 mg PO QAM multivitamin 1 tab PO QAM Take morning of surgery With a small sip of water, OTHERWISE NOTHING TO EAT OR DRINK AFTER MIDNIGHT: flecainide 50 mg PO Q12H metoprolol tartrate 1 dose PO BID Take evening before surgery amlodipine 5 mg PO QPM escitalopram oxalate [Lexapro] 10 mg PO QPM flecainide 50 mg PO Q12H lorazepam 0.5 mg PO HS metoprolol tartrate 1 dose PO BID Other Notes If you have any questions please call us at [phone] or [phone] or [phone] or [phone]
--- NOTE | 2019-02-01 11:38 | Anesthesiology Consultation ---
Date of Service February 01, 2019 Assessment & Plan (1) Encounter for pre-operative examination: - Patient states he was already advised to hold Eliquis 72 hours prior to surgery - Cardio= 02/03/19= aware of upcoming hip surgery. In regards to patient's sinus node dysfunction, given patient asymptomatic, "very good" functional capacity and s/p treadmill stress test 2016, do not feel further cardiac testing/pacemaker consideration needed at this time. In regards to "sleepy"/fati eric, recommend followingup with PCP. A. fib well controlled. Ascending aortic aneursym stable. Chart Review Chart Review: Acceptable Risk for Surgery and Patient seen in Pre Admission Testing Teaching & Discussion Pre-Anesthesia Teaching/Discussion Notes: Instructed NPO after midnight before surgery,except medications with 15 cc of water. Medication instructions provided according to the PAT guidelines. History Surgery Operation Date: 03/19/19 07:00 Proposed Procedures p Left Anterior Total Hip Arthroplasty - Ant Back DO Height/Weight Height: 6 ft Weight: 110.1 kg Allergies Allergy/AdvReac Type Severity Reaction Status Date / Time venlafaxine Allergy Intermediate IRREGULAR Verified 02/01/19 11:06 HEART BEAT warfarin Allergy Mild RASH Verified 02/01/19 11:06 bupropion AdvReac Severe IRREGULAR Verified 02/01/19 11:06 HEARTBEAT/NAUSEA paroxetine AdvReac Severe IRREGULAR Verified 02/01/19 11:06 HEARTBEAT/NAUSEA Medications Home Medications Medication Instructions Recorded Confirmed Last Taken amlodipine 5 mg PO QPM 02/01/19 02/01/19 Unknown apixaban [Eliquis] 5 mg PO BID 02/01/19 02/01/19 Unknown escitalopram oxalate [Lexapro] 10 mg PO QPM 02/01/19 02/01/19 Unknown flecainide 50 mg PO Q12H 02/01/19 02/01/19 Unknown lorazepam 0.5 mg PO HS 02/01/19 02/01/19 Unknown losartan 100 mg PO QAM 02/01/19 02/01/19 Unknown metoprolol tartrate 1 dose PO BID 02/01/19 02/01/19 Unknown multivitamin 1 tab PO QAM 02/01/19 02/01/19 Unknown Past Medical History Medical History Anxiety Atrial fibrillation ON ELIQUIS Depression Enlarged aorta THORACIC ASCENDING AORTA DILATION (44MM- NO INTERVAL CHANGE COMPARED TO 2016 PER CARDIO) Hearing deficit Hypertension Insomnia Kidney stones Osteoarthritis Panic attack Restless leg syndrome Sinus node dysfunction "ASYMPTOMATIC"; CARDIO MONITORING Spondylisthesis Past Family History Family History Father Family history of diabetes mellitus Grandfather (Paternal) Family hx of colon cancer Past Surgical History Surgical History Fusion of spine ACDF Ganglion cyst RT THUMB GANGLION CYSTECTOMY History of cataract surgery RT/LEFT History of colonoscopy History of lithotripsy History of lumbar surgery CYSTECTOMY History of tonsillectomy History of tooth extraction Past Anesthesia History No Hx of Anesthesia Complications (EXCEPT PONV) and No Family Hx of Anesthesia Complications History of PONV Yes Motion Sickness Screening History of Motion Sickness: No Social History Smoking Status: Never smoker Do You Dip or Chew Tobacco: No Hx Alcohol Use: Yes Alcohol type: beer and hard liquor alcohol intake frequency: 0-2 drinks per day Alcohol Intake Frequency Comment: 1 BEER/NIGHT Hx Substance Use: No substance use type: does not use Exercise / Class Metabolic Activity II 4-5 Yardwork/Stairs/Walk up hill Review of Systems Patient denies chest pain, shortness of breath, dyspnea on exertion, cough, wheezing, palpitations. Physical Exam Vital Signs VITALS BP 135/80 P 52 TEMP 98.4 SP02 97%RA RESP 20 PHYSICAL Mildly decreased cervical extension s/p ACDF Full TMJ range of motion. TMD 4 finger breaths Mallampati Score 3 Dentition: missing molars, implant/crowns on sides Lungs: clear throughout to auscultation Cardiac: regular rate and rhythm, no murmurs noted, distant heart sounds Spine: normal Carotid arteries: negative bruit Extremities: no edema Testing Electrocardiogram Date: 04/11/18 SB with first degree AVB at 53bpm. LVH with QRS windening. iRBBB. No significant change compared to 2014 per cardio. Chest X-Ray Date: 02/01/19 Findings: + NAD Stable mild cardiomegaly. No acute process within the chest. Echocardiogram Date: 07/22/16 LVEF 65%. Moderate LAD. Mild RAD. Mild cLVH. Dilated aortic root (4.8cm) and ascending aorta (4.5cm). No RWMA. Mild TR. Top normal to mildly elevated PASP (33mmhg) Stress Test Date: 09/11/17 Type: exercise 10.1 METS. Negative stress EKG for myocardial ischemia at 57% MPHR (blunted HR response) Laboratory Results 02/01/19 11:45 02/01/19 11:45 Blood Type A Positive 02/01/19 11:45 Antibody Screen NEGATIVE 02/01/19 11:45 PT 12.0 Seconds (9.0-12.0) 02/01/19 11:45 INR 1.2 (0.9-1.1) H 02/01/19 11:45 APTT 28.2 Seconds (21.0-31.0) 02/01/19 11:45
--- NOTE | 2019-02-01 12:17 | XRay Report ---
XR chest Pre-admission PA/Lat HISTORY: Preop. COMPARISON: Chest 04/11/2018. FINDINGS: The lungs are clear. Cardiac silhouette remains mildly enlarged. No pleural effusions. No p neumothorax. IMPRESSION: Stable mild cardiomegaly. No acute process within the chest. Electronically signed by: Davy Cordova M.D. 02/01/2019 12:16 PM
[2019-02-01 13:19] LABS: Basophils # (auto) 0.01 K/uL (0-0.2); Basophils % (auto) 0.2 %; Eosinophils # (auto) 0.12 K/uL (0-0.5); Eosinophils % (auto) 1.9 %; Hemoglobin 15.6 g/dL (14.0-18.0); Immature Granulocytes # (auto) 0.04 K/uL (0.00-0.02); Immature Granulocytes % (auto) 0.6 %; Lymphocytes % (auto) 20.6 %; Mean Corpuscular Hgb Conc 34.7 g/dL (32-36); Mean Corpuscular Volume 93.2 fL (80-100); Mean Platelet Volume 9.1 fL (7.4-10.4); Monocytes # (auto) 0.74 K/uL (0.11-0.59); Monocytes % (auto) 11.7 %; Neutrophils # (auto) 4.09 K/uL (1.4-6.5); Platelet Count 186 K/uL (130-400); RDW Coefficient of Variation 12.5 % (11.5-14.5); RDW Standard Deviation 42.3 fL (36.4-46.3); Red Blood Count 4.83 M/uL (4.7-6.1)
[2019-02-01 13:26] LABS: BUN Creatinine Ratio 11.5 (10-20); Calcium 8.6 mg/dl (8.5-10.1); Creatinine Clr Calc Pharmacy 103.9 ml/min; Est GFR (African American) 102.5; Est GFR (Non-African American) 88.5; Potassium 4.1 mmol/L (3.5-5.1)
[2019-02-01 13:42] LABS: INR 1.2 (0.9-1.1); Partial Thromboplastin Time 28.2 Seconds (21.0-31.0)
--- NOTE | 2019-03-18 20:36 | History & Physical Report ---
Date of Service March 18, 2019 Assessment & Plan (1) Osteoarthritis of left hip: We will proceed with a left anterior total hip arthroplasty. Postoperatively he will be placed on aspirin for DVT prophylaxis. He will be kept overnight at the hospital for postoperative medical management. He plans to talk to case management before deciding where to go for postoperative physical therapy. Present on Admission?: Yes History of Present Illness Chief Complaint: Primary osteoarthritis of the left hip Primary Care Provider: Catherine Campbell PA-C Lobito is a pleasant 68-year-old male who is been having chronic left hip and groin pain. X-rays and clinical examination have been diagnostic for advanced osteoarthritis of the left hip. After failing extensive conservative treatment, he has elected proceed with a left total hip arthroplasty. Allergies Allergy/AdvReac Type Severity Reaction Status Date / Time venlafaxine Allergy Intermediate IRREGULAR Verified 02/01/19 11:06 HEART BEAT warfarin Allergy Mild RASH Verified 02/01/19 11:06 bupropion AdvReac Severe IRREGULAR Verified 02/01/19 11:06 HEARTBEAT/NAUSEA paroxetine AdvReac Severe IRREGULAR Verified 02/01/19 11:06 HEARTBEAT/NAUSEA Home Medications Home Medications Medication Instructions Recorded Confirmed Type amlodipine 5 mg PO QPM 02/01/19 02/01/19 History apixaban [Eliquis] 5 mg PO BID 02/01/19 02/01/19 History escitalopram oxalate [Lexapro] 10 mg PO QPM 02/01/19 02/01/19 History flecainide 50 mg PO Q12H 02/01/19 02/01/19 History lorazepam 0.5 mg PO HS 02/01/19 02/01/19 History losartan 100 mg PO QAM 02/01/19 02/01/19 History metoprolol tartrate 1 dose PO BID 02/01/19 02/01/19 History multivitamin 1 tab PO QAM 02/01/19 02/01/19 History Past Med/Surg History Medical History Anxiety Atrial fibrillation ON ELIQUIS Depression Enlarged aorta THORACIC ASCENDING AORTA DILATION (44MM- NO INTERVAL CHANGE COMPARED TO 2016 PER CARDIO) Hearing deficit Hypertension Insomnia Kidney stones Osteoarthritis Panic attack Restless leg syndrome Sinus node dysfunction "ASYMPTOMATIC"; CARDIO MONITORING Spondylisthesis Surgical History Fusion of spine ACDF Ganglion cyst RT THUMB GANGLION CYSTECTOMY History of cataract surgery RT/LEFT History of colonoscopy History of lithotripsy History of lumbar surgery CYSTECTOMY History of tonsillectomy History of tooth extraction Family History Father Family history of diabetes mellitus Grandfather (Paternal) Family hx of colon cancer Social History Preferred Language: Kosovan Communication Ability: Effective Foreign Languages Professor Required: No Beliefs That Will Affect Care: None Current Living Situation: Spouse Other Information That Helps Us Care for You: No Feels Safe at Home: Yes Safety Concerns: Feels Safe At This Time Smoking Status: Never smoker Do You Dip or Chew Tobacco: No Second Hand Exposure: No Hx Alcohol Use: Yes Alcohol type: beer and hard liquor Hx Substance Use: No Review of Systems All systems reviewed & are unremarkable except as noted in HPI & below Physical Exam Constitutional: WD/WN, vitals as above Eyes: PERRL, conjunctivae normal, anicteric sclerae ENMT: external ear and nose normal, oropharynx normal Neck: trachea midline, no thyromegaly Respiratory: normal respiratory effort Cardiovascular: RRR, no murmur, no edema Gastrointestinal (Abdomen): normal bowel sounds, soft, nontender, no hepatosplenomegaly Musculoskeletal: Physical examination of the left hip reveals decreased range of motion with flexion, internal and external rotation. There is significant groin pain with forced internal rotation of the hip his leg lengths are essentially equal. Psychiatric: A+Ox3, euthymic affect Results & Data Diagnostic Findings Radiographs of the left hip and pelvis demonstrate advanced osteoarthritis with joint space narrowing osteophyte formation and [id number] articulation.
[2019-03-19] MEDS ORDERED: TRANEXAMIC ACID 1,000 MG **IV Pre-op IV SCH (06:00)
[2019-03-19] MEDS ORDERED: LR 60ML/HR IV SCH (06:00)
[2019-03-19] MEDS ORDERED: GABAPENTIN 300 MG PO SCH (06:00)
[2019-03-19] MEDS ORDERED: ROPIVACAINE 0.5% HCL/PF 150 MG, BUPIVACAINE 0.5% MPF 30 ML, EPINEPHrine 30MG/30ML (OR U... INFIL SCH (06:00)
[2019-03-19] MEDS ORDERED: ACETAMINOPHEN 500 MG TAB PO SCH (06:00)
[2019-03-19] MEDS ORDERED: CEFAZOLIN 2000MG 2,000 MG/15 ML SYR IV SCH (06:00)
[2019-03-19] MEDS ORDERED: FAMOTIDINE 20 MG TAB PO SCH (06:00)
[2019-03-19] MEDS ORDERED: LR 500ML BOLUS, THEN 15ML/HR IV SCH (06:00)
[2019-03-19] MEDS ORDERED: TRANEXAMIC ACID 1,000 MG **IV Intra-op IV SCH (06:30)
[2019-03-19] MEDS ORDERED: BUPIVACAINE 0.5 % 5 MG/1 ML PF 10ML VIAL ONE (06:31)
--- NOTE | 2019-03-19 06:48 | History & Physical Bridge Note ---
Date of Service March 19, 2019 History & Physical Bridge Note I have examined the patient, reviewed the History & Physical and in the interval since the performance of the History & Physical I have noted the following changes of clinical significance: no changes noted
[2019-03-19] MEDS ORDERED: HYDROmorphone INJ 1 MG/ML SYRINGE IV PRN (07:11)
[2019-03-19] MEDS ORDERED: ePHEDrine sulfate 50 MG/ML AMP IV PRN (07:11)
[2019-03-19] MEDS ORDERED: ATROPINE SULFATE 0.1 MG/ML 10ML SYR IV PRN (07:11)
[2019-03-19] MEDS ORDERED: ORTHO JOINT ANESTHETIC ONE (07:17)
[2019-03-19] MEDS ORDERED: POVIDONE-IODINE OP SOLN 30 ML BTL ONE (07:17)
[2019-03-19] MEDS ORDERED: PROPOFOL IV EMULSION 10 MG/ML 20 ML VIAL IV ONE (07:38)
[2019-03-19] MEDS ORDERED: MIDAZOLAM HCL 1 MG/ML 2ML VIAL ONE ×2 (07:41→07:42)
[2019-03-19] MEDS ORDERED: ONDANSETRON INJ 2 MG/ML 2 ML VIAL ONE (07:43)
[2019-03-19] MEDS ORDERED: ePHEDrine sulfate 50 MG/ML AMP ONE (09:43)
--- NOTE | 2019-03-19 11:05 | Operative Report ---
Post Operative Report Pre & Post Diagnosis Operation Date: 03/19/19 08:20 Pre-Op Diagnosis: Left Hip Degenerative Joint Disease Post-Op Diagnosis: Left Hip Degenerative Joint Disease Procedure Operation Date: 03/19/19 08:20 Actual Procedures p Left Anterior Total Hip Arthroplasty(Left) - Ant Back DO Surgeon Ant Back DO Regulatory Affairs Associate Ant Warren PAC Estimated Blood Loss 250 Findings Consistent with Post-Op Diagnosis Specimens Left femoral head Complications none Disposition Disposition: Recovery Room Indications Lobito is a pleasant 68-year-old male who presented my office with chronic increasing left hip and groin pain. X-rays and clinical examination were makayla gnostic for primary osteoarthritis of the left hip. After failing conservative treatment, he elected to proceed with a left total hip arthroplasty. Description of Procedure Implants used Biomet Taperloc total hip arthroplasty system with a size 15 high offset Taperloc stem, a 60 mm G7 cup with a 25mm screw, an E1 polyethylene liner, a 40 mm ceramic head with a +0 neck. Patient arrived at the hospital for the above procedure. They were seen in the preoperative holding area and the operative extremity was identified and signed. They were given a spinal anesthetic. They were given a preoperative antibiotic and TXA. They were taken back To the operating room and laid on the table in the supine position. The leg was brought out through a Puristst leg positioner. The hip was then prepped and draped in sterile fashion. A timeout was done and the patient in upper extremities properly identified. An anterior approach was used. Dissection was taken down through the fascia and the tensor muscle belly was retracted laterally and the rectus was retracted medially. The circumflex vessels were identified and ligated. The capsule was then incised and tagged for later repair. The femoral neck was then cut and the femoral head was removed. The acetabulum was exposed. Time was spent doing a complete circumferential labral release. Sequential reaming of the acetabulum up to a size 59 reamer was done. Final reamings were done under fluoroscopy to ensure appropriate version. A Biomet 60 mm G7 cup was then impacted into place. A single 25 mm screw was placed. The E1 polyethylene liner was then snapped into place. Surrounding soft tissues were then injected with 100 cc of an orthopedic pain control cocktail. The proximal femur was then exposed. Sequential broaching up to a size 15 broach was done. Off that broach a size 40 head with a +0 neck was trialed. The hip was reduced and fluoroscopic images showed anatomic alignment of the implants in acceptable length. The broach was removed. The final size 15 high offset Taperloc stem was then impacted into place. A ceramic 40 mm head with a +0 neck was then impacted into place in the hip was reduced. Final fluoroscopic images showed anatomic reduction of the hip. The capsule was then closed with #1 Vicryl suture. A dilute betadyne lavage was then done for 3 minutes. The joint was then irrigated with normal saline solution. The fascia was closed with #1 PDS suture. Skin was closed with 2-0 Vicryl, eleno, and a Barbara VAC dressing. The patient was then transferred to a hospital bed and taken to the post anesthesia care unit in stable condition. They tolerated the procedure well. I attest to the content of the Intraoperative Record and any orders documented therein. Any exceptions are noted below.
--- NOTE | 2019-03-19 11:46 | Fluoroscopy Report ---
FL hip LT 1V CLINICAL HISTORY: LEFT ANTERIOR TOTAL HIP COMPARISON STUDY: Left hip radiographs November 16, 2018. FLUOROSCOPY TIME: 36 seconds. FLUOROSCOPIC IMAGES: 2 FINDINGS: These images demonstrate expected findings during a total left hip arthroplasty. The hardwa re is intact. There is an acetabular screw. No fracture is visualized. IMPRESSION: Expected findings during total left hip arthroplasty. Electronically signed by: Panchito Juarez M.D. 03/19/2019 11:45 AM
--- NOTE | 2019-03-19 11:55 | XRay Report ---
XR hip 1V LT w pelvis CLINICAL HISTORY: IN PACU - A/P PELVIS and LATERAL HIP postoperative evaluation COMPARISON: None. DISCUSSION: Anatomic alignment post total left hip arthroplasty. Good contact between prosthetic and underlying bone. Expected postoperative soft tissue change IMPRESSION: Anatomic alignment post total left hip arthroplasty. The above report was generated using voice recognition software. It may contain grammatical, syntax or spelling errors. Electronically signed by: Sean Marcus M.D. 03/19/2019 11:53 AM
--- NOTE | 2019-03-19 12:10 | Anesthesiology Progress Note ---
Date of Service March 19, 2019 Anesthesia Post Procedure Vital Signs Vital Signs: Temp Pulse Resp BP Pulse Ox 03/19/19 11:55 36.7 C 47 L 13 129/79 96 03/19/19 11:45 48 L 12 119/67 98 03/19/19 11:35 47 L 16 131/73 96 03/19/19 11:25 47 L 12 122/75 98 03/19/19 11:19 36.2 C L 47 L 15 129/84 99 Notes Mental Status: alert / awake / arousable and participated in evaluation Patient Amnestic to Procedure: Yes Nausea / Vomiting: adequately controlled Pain: adequately controlled Airway Patency, RR, SpO2: stable & adequate BP & HR: stable & adequate Hydration State: stable & adequate Anesthetic Complications: no major complications apparent and Pt Satisfied with anesthetic care
[2019-03-19] MEDS ORDERED: BISACODYL 10 MG SUPP PR PRN (12:33)
[2019-03-19] MEDS ORDERED: METOCLOPRAMIDE HCL INJ 5 MG/ML 2 ML VIAL IV PRN (12:33)
[2019-03-19] MEDS ORDERED: NALOXONE HCL 0.4 MG/1 ML VIAL/CARP IV PRN (12:33)
[2019-03-19] MEDS ORDERED: MAGNESIUM HYDROXIDE SUSP 30 ML UDC PO PRN (12:33)
[2019-03-19] MEDS ORDERED: OXYCODONE HCL IR 5 MG TAB (IMMEDIATE RELEASE) PO PRN (12:33)
[2019-03-19] MEDS ORDERED: ONDANSETRON INJ 2 MG/ML 2 ML VIAL IV PRN (12:33)
[2019-03-19] MEDS ORDERED: HYDROmorphone INJ 0.5 MG/0.5 ML SYR IV PRN (12:33)
[2019-03-19] MEDS ORDERED: SODIUM CHLORIDE 0.9% 1000ML 1,000 ML IV SCH (13:00)
[2019-03-19] MEDS: ACETAMINOPHEN 500 MG TAB PO SCH ×2 (14:24→20:45)
[2019-03-19] MEDS: KETOROLAC TROMETHAMINE 15 MG/ML VIAL IV SCH ×2 (14:24→20:45)
[2019-03-19] MEDS: CEFAZOLIN 2000MG 2,000 MG/15 ML SYR IV SCH (17:56)
[2019-03-19] MEDS: FLECAINIDE ACETATE 100 MG TABLET PO SCH (18:41)
[2019-03-19] MEDS: METOPROLOL TARTRATE 50 MG TAB PO SCH (18:42)
[2019-03-19] MEDS: DOCUSATE SODIUM 100 MG CAP PO SCH (18:47)
[2019-03-19] MEDS: APIXABAN 5 MG TABLET PO SCH (18:47)
[2019-03-19] MEDS ORDERED: SENNA 8.6 MG TAB PO SCH (21:00)
[2019-03-19] MEDS ORDERED: ASPIRIN 81 MG ECTAB PO SCH (21:00)
[2019-03-19] MEDS ORDERED: AMLODIPINE BESYLATE 5 MG TAB PO SCH (21:00)
[2019-03-19] MEDS ORDERED: ESCITALOPRAM OXALATE 10 MG TAB PO SCH (21:00)
[2019-03-19] MEDS ORDERED: LORazepam 0.5 MG TAB PO SCH (21:00)
[2019-03-20] MEDS: CEFAZOLIN 2000MG 2,000 MG/15 ML SYR IV SCH (00:23)
[2019-03-20] MEDS: KETOROLAC TROMETHAMINE 15 MG/ML VIAL IV SCH ×2 (01:35→08:11)
[2019-03-20] MEDS: ACETAMINOPHEN 500 MG TAB PO SCH (06:05)
[2019-03-20 06:35] LABS: Basophils # (auto) 0.01 K/uL (0-0.2); Basophils % (auto) 0.1 %; Eosinophils # (auto) 0.05 K/uL (0-0.5); Eosinophils % (auto) 0.5 %; Hematocrit (blood only) 37.2 % (42-52); Immature Granulocytes # (auto) 0.05 K/uL (0.00-0.02); Immature Granulocytes % (auto) 0.5 %; Lymphocytes # (auto) 1.18 K/uL (1.2-3.4); Lymphocytes % (auto) 10.9 %; Mean Corpuscular Hgb Conc 34.9 g/dL (32-36); Mean Platelet Volume 8.5 fL (7.4-10.4); Monocytes % (auto) 11.1 %; Neutrophils # (auto) 8.34 K/uL (1.4-6.5); Neutrophils % (auto) 76.9 %; Platelet Count 134 K/uL (130-400); RDW Coefficient of Variation 12.3 % (11.5-14.5); White Blood Count 10.83 K/uL (4.8-10.8)
[2019-03-20 07:03] LABS: BUN Creatinine Ratio 15.2 (10-20); Creatinine Clr Calc Pharmacy 108.9 ml/min; Est GFR (African American) 105.1; Est GFR (Non-African American) 90.7; Potassium 4.1 mmol/L (3.5-5.1)
--- NOTE | 2019-03-20 07:49 | Orthopedic Progress Note ---
Date of Service March 20, 2019 Assessment & Plan (1) Osteoarthritis of left hip: Overall is doing very well. Is not having any pain in the hip. He will be seen by physical therapy today for ambulation. He is on Eliquis for DVT prophylaxis. We will continue oxycodone as needed for pain control. He will be discharged home later this morning with energy physical therapy. He will follow-up with orthopedics in 2 to 3 weeks. Present on Admission?: Yes Subjective Lobito was seen and examined at bedside this morning. Overall he is doing very well. Is not having any pain in the hip. He is already been up and ambulating around his room. He has no complaints. Physical Exam Musculoskeletal: On physical examination of the left hip, Barbara VAC dressing is to suction. His ligaments are equal. He has active dorsiflexion and plantarflexion of his left ankle. Sensations intact throughout. Results & Data Vital Signs (Past 12 Hours) Vital Signs Temp Pulse Pulse Resp BP Pulse Ox 03/20/19 06:58 36.9 C 57 L 16 137/79 96 03/20/19 03:01 36.8 C 56 L 14 121/57 L 97 03/19/19 23:54 36.9 C 56 L 14 118/66 97 03/19/19 20:00 36.9 C 60 18 114/71 95 Laboratory Results H & H 02/01/19 03/20/19 Range/Units 11:45 06:15 Hgb 15.6 13.0 L (14.0-18.0) g/dL Hct 45.0 37.2 L (42-52) % Coagulation 02/01/19 Range/Units 11:45 INR 1.2 H (0.9-1.1) Diagnostic Findings Postoperative x-rays of the left hip show the prosthesis to be in anatomic alignment without any evidence of fracture, dislocation, or loosening.
--- NOTE | 2019-03-20 07:50 | Discharge Summary ---
Date of Service March 20, 2019 Admission HPI Per Admitting Provider Lobito is a pleasant 68-year-old male who is been having chronic left hip and groin pain. X-rays and clinical examination have been diagnostic for advanced osteoarthritis of the left hip. After failing extensive conservative treatment, he has elected proceed with a left total hip arthroplasty. Specialty Data Orthopedic H & H /03/1903/20/19 Range/Units 11:45 06:15 Hgb 15.6 13.0 L (14.0-18.0) g/dL Hct 45.0 37.2 L (42-52) % Coagulation 02/01/19 Range/Units 11:45 INR 1.2 H (0.9-1.1) Discharge Data Consultations 03/20/19 08:00 Consult Case Management - Discharge Planning Routine Procedures Performed Operation Date: 03/19/19 08:20 Actual Procedures p Left Anterior Total Hip Arthroplasty(Left) - Ant Back DO Hospital Course (1) Osteoarthritis of left hip: On March 19, 2019 Lobito arrived at [facility] and underwent a left anterior total hip arthroplasty without complication. He had a spinal anesthetic. Postoperatively he was started on his Eliquis for DVT prophylaxis. He was discharged to general orthopedic floors. His hospital course was uneventful. On postop day #1 his H&H was stable and his pain is well controlled. He was able to participate well with physical therapy. He was subsequently discharged home with energy physical therapy. He will follow-up with orthopedics in 2 weeks. Discharge Instructions Home Medications Medication Instructions Recorded Confirmed amlodipine 5 mg PO QPM 02/01/19 03/19/19 apixaban [Eliquis] 5 mg PO BID 02/01/19 03/19/19 escitalopram oxalate [Lexapro] 10 mg PO QPM 02/01/19 03/19/19 flecainide 50 mg PO Q12H 02/01/19 03/19/19 lorazepam 0.5 mg PO HS 02/01/19 03/19/19 losartan 100 mg PO QAM 02/01/19 03/19/19 metoprolol tartrate 1 dose PO BID 02/01/19 03/19/19 multivitamin 1 tab PO QAM 02/01/19 03/19/19 atorvastatin [Lipitor] 10 mg PO DAILY 03/19/19 03/19/19 lysine 1,000 mg PO DAILY 03/19/19 03/19/19 Previous Rx's Medication Instructions Recorded oxycodone 5 - 10 mg PO Q4H PRN #40 tab 03/20/19
[2019-03-20] MEDS: APIXABAN 5 MG TABLET PO SCH (08:11)
[2019-03-20] MEDS: FLECAINIDE ACETATE 100 MG TABLET PO SCH (08:12)
[2019-03-20] MEDS: DOCUSATE SODIUM 100 MG CAP PO SCH (08:12)
[2019-03-20] MEDS: METOPROLOL TARTRATE 50 MG TAB PO SCH (08:13)
[2019-03-20] MEDS ORDERED: MULTIVITAMIN TAB PO SCH (09:00)
[2019-03-20] MEDS ORDERED: LOSARTAN POTASSIUM 50 MG TAB PO SCH (09:00)
[2019-03-20] MEDS ORDERED: ATORVASTATIN 10 MG TAB PO SCH (09:00)
--- NOTE | 2019-03-20 10:08 | Anesthesiology Progress Note ---
Date of Service March 20, 2019 Anesthesia Post Procedure Vital Signs Vital Signs: Temp Pulse Pulse Pulse Resp BP Pulse Ox 03/20/19 06:58 36.9 C 57 L 16 137/79 96 03/20/19 03:01 36.8 C 56 L 14 121/57 L 97 03/19/19 23:54 36.9 C 56 L 14 118/66 97 03/19/19 20:00 36.9 C 60 18 114/71 95 03/19/19 15:20 36.6 C 74 18 129/74 97 03/19/19 14:19 52 L 17 123/70 98 03/19/19 13:19 56 L 17 135/85 96 03/19/19 12:50 51 L 17 145/87 H 99 03/19/19 12:20 36.4 C L 52 L 16 150/57 H 99 03/19/19 12:10 49 L 13 136/82 97 03/19/19 11:55 36.7 C 47 L 13 129/79 96 03/19/19 11:45 48 L 12 119/67 98 03/19/19 11:35 47 L 16 131/73 96 03/19/19 11:25 47 L 12 122/75 98 03/19/19 11:19 36.2 C L 47 L 15 129/84 99 Notes Mental Status: alert / awake / arousable and participated in evaluation Nausea / Vomiting: adequately controlled Pain: adequately controlled Airway Patency, RR, SpO2: stable & adequate BP & HR: stable & adequate Hydration State: stable & adequate
== END 2019-03-20 12:52 | disposition home or self-care (01) | DRG 470 ==
LOC: ASU 05:59 → 3E 11:25

== ENCOUNTER 2022-10-24 20:18 | Observation (INO) ==
[2022-10-24] MEDS ORDERED: SODIUM CHLORIDE 0.9% 500 ML IV ONE (21:49)
[2022-10-24] MEDS ORDERED: ONDANSETRON INJ 2 MG/ML 2 ML VIAL IV STA (21:49)
[2022-10-24] MEDS ORDERED: MECLIZINE 12.5 MG TAB PO STA (21:49)
[2022-10-24 21:51] LABS: Basophils # (auto) 0.03 K/uL (0-0.2); Basophils % (auto) 0.4 %; Eosinophils # (auto) 0.04 K/uL (0-0.50); Eosinophils % (auto) 0.5 %; Hematocrit (blood only) 43.7 % (40.1-51.0); Hemoglobin 15.6 g/dl (14.0-18.0); Immature Granulocytes # (auto) 0.09 K/uL (0.00-0.02); Immature Granulocytes % (auto) 1.2 %; Lymphocytes # (auto) 0.39 K/uL (1.2-3.4); Lymphocytes % (auto) 5.2 %; Mean Corpuscular Hemoglobin 33.1 pg (25.0-34.0); Mean Corpuscular Hgb Conc 35.7 g/dL (32.0-36.0); Mean Corpuscular Volume 92.8 fL (80.0-100.0); Mean Platelet Volume 8.6 fL (9.4-12.4); Monocytes # (auto) 0.53 K/uL (0.24-0.82); Neutrophils # (auto) 6.49 K/uL (1.4-6.5); Neutrophils % (auto) 85.7 %; Platelet Count 161 K/uL (130-400); RDW Coefficient of Variation 11.4 % (11.5-14.5); RDW Standard Deviation 39.3 fL (36.4-46.3); Red Blood Count 4.71 M/uL (4.63-6.08); White Blood Count 7.57 K/ul (4.8-10.8)
--- NOTE | 2022-10-24 21:51 | Emergency Department Note ---
History of Present Illness General Chief complaint: Dizziness Stated complaint: DIZZINESS/WEAKNESS Time Seen by Provider: 10/24/22 21:38 History of Present Illness This is a 72-year-old male that presents to the emergency department via EMS with complaints of "dizziness/weakness". Patient notes that earlier today he woke up with a minor sore throat. He then in the afternoon felt that the room started to spin. He then noted nausea and his stomach felt "queasy". He then notes when he lays flat he feels fine but when he attempts to stand or ambulate the room spins and he feels like he is going to fall or pass out. He does feel warm at times with associated chills but no fevers. No trauma or injury. No speech trouble. No unilateral weakness. No chest pain or shortness of breath. Home Medications Medication Instructions Recorded Confirmed Type lysine 1,000 mg tablet 1,000 mg PO HS PRN NEEDED PER 10/11/21 10/24/22 Histo ry PT. apixaban 5 mg tablet (Eliquis) 5 mg PO BID #180 tabs 02/18/22 10/24/22 Rx metoprolol tartrate 25 mg tablet 25 mg PO BID #180 tabs 02/18/22 10/24/22 Rx azelastine 137 mcg (0.1 %) nasal 2 spray intranasal DAILY PRN 03/22/22 10/24/22 Rx spray aerosol congestion drainage #30 mL lorazepam 0.5 mg tablet 0.5 mg PO HS PRN anxiety and panic 05/20/22 10/24/22 Rx attacks #90 tabs losartan 100 mg tablet See Rx Instructions PO .COMPLEX 90 07/16/22 10/24/22 Rx days #135 tabs amlodipine 5 mg tablet 2.5 mg PO DAILY #45 tabs 07/23/22 10/24/22 Rx flecainide 50 mg tablet 50 mg PO Q12H #10 tabs 08/04/22 10/24/22 Rx atorvastatin 10 mg tablet (Lipitor) 10 mg PO DAILY #90 tabs 09/04/22 10/24/22 Rx escitalopram oxalate 10 mg tablet 10 mg PO DAILY #90 tabs 09/04/22 10/24/22 Rx ciclopirox 0.77 % topical cream 1 applic topical BID #15 grams 10/16/22 10/24/22 Rx fluocinolone acetonide oil 0.01 % 4 drp otic (ear) BID PRN EAR 10/24/22 10/24/22 History ear drops ITCHINESS Allergies Allergy/AdvReac Type Severity Reaction Status Date / Time bupropion Allergy Severe IRREGULAR Verified 10/16/22 15:10 HEARTBEAT/NAUSEA paroxetine Allergy Severe IRREGULAR Verified 10/16/22 15:10 HEARTBEAT/NAUSEA venlafaxine Allergy Intermediate IRREGULAR Verified 10/16/22 15:10 HEART BEAT warfarin Allergy Mild RASH Verified 10/16/22 15:10 Past Med/Surg History Medical History Bradycardia Asymptomatic. Cervical radiculopathy Enlarged prostate with lower urinary tract symptoms (LUTS) Generalized osteoarthritis Including the lumbar spine and left hip now s/p L total hip arthroplasty (03/19/19). Hearing deficit History of panic attacks Hyperlipidemia Hypertension Left varicocele Nasal septal deviation Paroxysmal atrial fibrillation Followed by Cardiology ([facility]). Well controlled on low-dose flecainide per cardio. On Eliquis. Retinal detachment with retinal defect, unspecified right Sensorineural hearing loss (SNHL) of left ear with restricted hearing of right ear Very poor word recognition Spondylisthesis Thoracic aortic aneurysm Dilated aortic root remains unchanged at 4.8 cm and ascending aorta remains unchanged at 4.5 cm per most recent cardiology note 01/26/2021. Tubular adenoma of colon Surgical History Detached retina, right REPAIRED Fusion of spine ACDF Ganglion cyst RT THUMB GANGLION CYSTECTOMY History of carpal tunnel release History of cataract surgery RT/LEFT History of colonoscopy 12/2018 seen by [facility] History of esophagogastroduodenoscopy (EGD) History of kidney surgery History of lithotripsy History of lumbar surgery CYSTECTOMY History of tonsillectomy History of tooth extraction S/P hip replacement Left 2018 Family History Father Family history of diabetes mellitus Diabetes Stroke Hypertension Grandfather Colorectal cancer Family hx of colon cancer Myocardial infarction Sister Cancer Son Anxiety Brother Hypertension Denies family history of Ovarian cancer Prostate cancer Breast cancer Lung cancer Social History Smoking Status: Never smoker Second Hand Exposure: No; Hx Alcohol Use: Yes Alcohol type: beer Alcohol Intake Frequency: 4 or More x per/Week Hx Substance Use: No Preferred Language: Angolan Communication Ability: Effective Visual Impairment: Partially Limited Hearing Ability: Hard of Hearing [place] Required: No Beliefs That Will Affect Care: None marital status: Current Living Situation: Spouse Current Living Situation Comment: [employer] - current occupational status: retired How many Children do You have: 4 Feels Safe at Home: Yes Childhood Exposure to Second-Hand Smoke: Yes caffeine: Yes (coffee ) Dental Care, Regularly: Yes Physical Activity Frequency: Daily Seatbelt Use: always Sunscreen Use: Yes Assistive Devices: Glasses Review of Systems A total of 10 systems reviewed and were otherwise negative Physical Exam Vital Signs Vital Signs - 24 hr 10/24/22 20:11 10/24/22 20:51 10/24/22 21:49 Temperature 37.2 C Temperature Source Oral Pulse Rate 67 Pulse Rate [Finger] Pulse Rhythm Regular Pulse Strength Normal Respiratory Rate 20 Respiratory Effort / Characteristics Non-Labored Respiratory Depth Normal Respiratory Pattern Regular Blood Pressure 169/104 H Blood Pressure [Right Arm] Blood Pressure Mean 125 Blood Pressure Mean [Right Arm] Blood Pressure Position Sitting Blood Pressure Position [Right Arm] Pulse Oximetry 97 98 Oxygen Delivery Method Room Air Room Air Room Air Sepsis Recent Fever Within 48 Hours No Sepsis New/Unexplained Change in Mental Status No Sepsis Action Taken by Nursing No Action Required 10/24/22 22:51 10/25/22 00:47 Temperature Temperature Source Pulse Rate Pulse Rate [Finger] 78 78 Pulse Rhythm Pulse Strength Respiratory Rate 20 18 Respiratory Effort / Characteristics Respiratory Depth Respiratory Pattern Blood Pressure Blood Pressure [Right Arm] 159/90 H 170/93 H Blood Pressure Mean Blood Pressure Mean [Right Arm] 113 118 Blood Pressure Position Blood Pressure Position [Right Arm] Lying Pulse Oximetry 98 94 Oxygen Delivery Method Room Air Sepsis Recent Fever Within 48 Hours Sepsis New/Unexplained Change in Mental Status Sepsis Action Taken by Nursing VITAL SIGNS - Vital signs and nursing notes were reviewed. Stable and afebrile. GENERAL -72-year-old male appearing his stated age who is in no acute distress. Communicates well with provider and answers questions appropriately. SKIN - Without rashes. No meningeal or petechial rash. HEAD - NC/AT. EYES - PERRL with EOMI bilaterally. Sclera anicteric. EARS - No deformities of external structures noted on gross examination bilaterally. NOSE - Midline and without cyanosis. MOUTH/OROPHARYNX - Without perioral cyanosis. NECK - Neck with FROM. No nuchal rigidity. LUNGS - Chest wall symmetric without accessory muscle use, intercostals retractions, or central cyanosis. Normal vesicular breath sounds CTA B/L. No wh eezes, rales, or rhonchi appreciated. CARDIAC - RRR with S1/S2. No murmur, rubs, or gallops appreciated. EXTREMITIES - No clubbing or peripheral cyanosis. +5/5 strength noted in UE/LE bilaterally. NEUROLOGIC - Cranial nerves II through XII grossly intact. Sensory intact to light touch throughout. PSYCH - A&Ox3 and cooperates fully with examiner. Pt is very pleasant and interacts well with examiner. Course Administered Medications Sodium Chloride (Nss 1000ml) 1,000 mls @ 125 mls/hr IV .Q8H JOYCE Stop: 10/25/22 11:30 Last Admin: 10/25/22 03:54 Dose: 125 mls/hr Documented By: NEELA Ondansetron HCl (Ondansetron Inj 2 Mg/Ml 2 Ml Vial) 4 mg IV Q6H PRN PRN Reason: Nausea Stop: 11/24/22 03:30 Last Admin: 10/25/22 03:54 Dose: 4 mg Documented By: NEELA Discontinued Medications Sodium Chloride (Nss) 500 mls @ 500 mls/hr IV .Q1H ONE Stop: 10/24/22 22:48 Last Infusion: 10/24/22 23:03 Dose: 0 mls/hr Documented By: Admin: 10/24/22 22:02 Dose: 500 mls/hr Documented By: ALFREDO Ioversol (Optiray 320 500ml) 108 ml IV ONCE ONE Stop: 10/24/22 22:37 Last Admin: 10/24/22 22:36 Dose: 108 ml Documented By: IVON Meclizine HCl (Meclizine 12.5 Mg Tab) 12.5 mg PO NOW STA Stop: 10/24/22 21:50 Last Admin: 10/24/22 22:01 Dose: 12.5 mg Documented By: ALFREDO Ondansetron HCl (Ondansetron Inj 2 Mg/Ml 2 Ml Vial) 4 mg IV NOW STA Stop: 10/24/22 21:50 Last Admin: 10/24/22 22:01 Dose: 4 mg Documented By: ALFREDO Medical Decision Making Laboratory Data Result diagrams: 10/24/22 21:45 10/24/22 21:45 Lab Results 10/24/22 10/24/22 10/24/22 Range/Units 21:45 21:45 21:45 WBC 7.57 (4.8-10.8) K/ul RBC 4.71 (4.63-6.08) M/uL Hgb 15.6 (14.0-18.0) g/dl Hct 43.7 (40.1-51.0) % MCV 92.8 (80.0-100.0) fL MCH 33.1 (25.0-34.0) pg MCHC 35.7 (32.0-36.0) g/dL RDW Std Deviation 39.3 (36.4-46.3) fL RDW Coeff of Richard 11.4 L (11.5-14.5) % Plt Count 161 (130-400) K/uL MPV 8.6 L (9.4-12.4) fL Immature Gran % (Auto) 1.2 % Neut % (Auto) 85.7 % Lymph % (Auto) 5.2 % Rich % (Auto) 7.0 % Eos % (Auto) 0.5 % Baso % (Auto) 0.4 % Neut # (Auto) 6.49 (1.4-6.5) K/uL Lymph # (Auto) 0.39 L (1.2-3.4) K/uL Rich # (Auto) 0.53 (0.24-0.82) K/uL Eos # (Auto) 0.04 (0-0.50) K/uL Baso # (Auto) 0.03 (0-0.2) K/uL Immature Gran # (Auto) 0.09 H (0.00-0.02) K/uL PT INR APTT PTT Ratio Sodium 128 L (136-145) mmol/L Potassium 3.6 (3.5-5.1) mmol/L Chloride 99 (98-107) mmol/L Carbon Dioxide 21 (21-32) mmol/L Anion Gap 8 (3-11) BUN 9 (6-23) mg/dl Creatinine 0.74 (0.6-1.4) mg/dl Est Cr Clr Drug Dosing 115.6 ml/min Est GFR ( Amer) 106.1 ml/min Est GFR (Non-Af Amer) 91.5 ml/min BUN/Creatinine Ratio 12.2 (10-20) Glucose 114 H (70-99(Fasting)) mg/dl Osmolality (280-300) mOsm/kg Calcium 8.4 L (8.5-10.1) mg/dl Magnesium (1.7-2.4) mg/dl Total Bilirubin 0.7 (0.2-1.0) mg/dl AST 23 (13-39) U/L ALT 25 (7-52) U/L Alkaline Phosphatase 55 (34-104) U/L Troponin I High Sens 6.1 (0-20) pg/ml Total Protein 6.1 (6.0-8.3) gm/dl Albumin 4.0 (3.4-5.0) gm/dl Globulin 2.1 L (2.5-4.0) gm/dl Albumin/Globulin Ratio 1.9 (0.9-2) TSH 1.090 (0.300-4.500) uIu/ml Urine Color Urine Appearance (Clear) Urine pH (4.5-7.5) Ur Specific [place] (1.000-1.030) Urine Protein (Negative) Urine Glucose (UA) (Negative) Urine Ketones (Negative) Urine Blood (Negative) Urine Nitrite (Negative) Urine Bilirubin (Negative) Urine Urobilinogen (Negative) Ur Leukocyte Esterase (Negative) Adenovirus (PCR) (NotDetected) B. pertussis DNA (PCR) (NotDetected) B.parapertussis DNA PCR (NotDetected) C. pneumoniae DNA (PCR) (NotDetected) Coronavirus OC43 (PCR) (NotDetected) Coronavirus HKU1 (PCR) (NotDetected) Coronavirus 229E (PCR) (NotDetected) SARS-CoV-2 (PCR) (NotDetected) Coronavirus NL63 (PCR) (NotDetected) Human Metapneumovir PCR (NotDetected) Influenza A (H3) PCR (NotDetected) Influenza Type B (PCR) (NotDetected) M. pneumoniae (PCR) (NotDetected) Parainfluenza 1 (PCR) (NotDetected) Parainfluenza 2 (PCR) (NotDetected) Parainfluenza 3 (PCR) (NotDetected) Parainfluenza 4 (PCR) (NotDetected) RSV (PCR) (NotDetected) Entero/Rhino (PCR) (NotDetected) 10/24/22 10/24/22 10/24/22 Range/Units 21:45 21:45 23:09 WBC (4.8-10.8) K/ul RBC (4.63-6.08) M/uL Hgb (14.0-18.0) g/dl Hct (40.1-51.0) % MCV (80.0-100.0) fL MCH (25.0-34.0) pg MCHC (32.0-36.0) g/dL RDW Std Deviation (36.4-46.3) fL RDW Coeff of Richard (11.5-14.5) % Plt Count (130-400) K/uL MPV (9.4-12.4) fL Immature Gran % (Auto) % Neut % (Auto) % Lymph % (Auto) % Rich % (Auto) % Eos % (Auto) % Baso % (Auto) % Neut # (Auto) (1.4-6.5) K/uL Lymph # (Auto) (1.2-3.4) K/uL Rich # (Auto) (0.24-0.82) K/uL Eos # (Auto) (0-0.50) K/uL Baso # (Auto) (0-0.2) K/uL Immature Gran # (Auto) (0.00-0.02) K/uL PT Cancelled 11.9 INR Cancelled 1.1 APTT Cancelled 27.5 PTT Ratio Cancelled 1.0 Sodium (136-145) mmol/L Potassium (3.5-5.1) mmol/L Chloride (98-107) mmol/L Carbon Dioxide (21-32) mmol/L Anion Gap (3-11) BUN (6-23) mg/dl Creatinine (0.6-1.4) mg/dl Est Cr Clr Drug Dosing ml/min Est GFR ( Amer) ml/min Est GFR (Non-Af Amer) ml/min BUN/Creatinine Ratio (10-20) Glucose (70-99(Fasting)) mg/dl Osmolality (280-300) mOsm/kg Calcium (8.5-10.1) mg/dl Magnesium 1.9 (1.7-2.4) mg/dl Total Bilirubin (0.2-1.0) mg/dl AST (13-39) U/L ALT (7-52) U/L Alkaline Phosphatase (34-104) U/L Troponin I High Sens (0-20) pg/ml Total Protein (6.0-8.3) gm/dl Albumin (3.4-5.0) gm/dl Globulin (2.5-4.0) gm/dl Albumin/Globulin Ratio (0.9-2) TSH (0.300-4.500) uIu/ml Urine Color Urine Appearance (Clear) Urine pH (4.5-7.5) Ur Specific [place] (1.000-1.030) Urine Protein (Negative) Urine Glucose (UA) (Negative) Urine Ketones (Negative) Urine Blood (Negative) Urine Nitrite (Negative) Urine Bilirubin (Negative) Urine Urobilinogen (Negative) Ur Leukocyte Esterase (Negative) Adenovirus (PCR) (NotDetected) B. pertussis DNA (PCR) (NotDetected) B.parapertussis DNA PCR (NotDetected) C. pneumoniae DNA (PCR) (NotDetected) Coronavirus OC43 (PCR) (NotDetected) Coronavirus HKU1 (PCR) (NotDetected) Coronavirus 229E (PCR) (NotDetected) SARS-CoV-2 (PCR) (NotDetected) Coronavirus NL63 (PCR) (NotDetected) Human Metapneumovir PCR (NotDetected) Influenza A (H3) PCR (NotDetected) Influenza Type B (PCR) (NotDetected) M. pneumoniae (PCR) (NotDetected) Parainfluenza 1 (PCR) (NotDetected) Parainfluenza 2 (PCR) (NotDetected) Parainfluenza 3 (PCR) (NotDetected) Parainfluenza 4 (PCR) (NotDetected) RSV (PCR) (NotDetected) Entero/Rhino (PCR) (NotDetected) 10/24/22 10/24/22 10/25/22 Range/Units Unknown Unknown 00:00 WBC (4.8-10.8) K/ul RBC (4.63-6.08) M/uL Hgb (14.0-18.0) g/dl Hct (40.1-51.0) % MCV (80.0-100.0) fL MCH (25.0-34.0) pg MCHC (32.0-36.0) g/dL RDW Std Deviation (36.4-46.3) fL RDW Coeff of Richard (11.5-14.5) % Plt Count (130-400) K/uL MPV (9.4-12.4) fL Immature Gran % (Auto) % Neut % (Auto) % Lymph % (Auto) % Rich % (Auto) % Eos % (Auto) % Baso % (Auto) % Neut # (Auto) (1.4-6.5) K/uL Lymph # (Auto) (1.2-3.4) K/uL Rich # (Auto) (0.24-0.82) K/uL Eos # (Auto) (0-0.50) K/uL Baso # (Auto) (0-0.2) K/uL Immature Gran # (Auto) (0.00-0.02) K/uL PT INR APTT PTT Ratio Sodium (136-145) mmol/L Potassium (3.5-5.1) mmol/L Chloride (98-107) mmol/L Carbon Dioxide (21-32) mmol/L Anion Gap (3-11) BUN (6-23) mg/dl Creatinine (0.6-1.4) mg/dl Est Cr Clr Drug Dosing ml/min Est GFR ( Amer) ml/min Est GFR (Non-Af Amer) ml/min BUN/Creatinine Ratio (10-20) Glucose (70-99(Fasting)) mg/dl Osmolality 264 L (280-300) mOsm/kg Calcium (8.5-10.1) mg/dl Magnesium (1.7-2.4) mg/dl Total Bilirubin (0.2-1.0) mg/dl AST (13-39) U/L ALT (7-52) U/L Alkaline Phosphatase (34-104) U/L Troponin I High Sens (0-20) pg/ml Total Protein (6.0-8.3) gm/dl Albumin (3.4-5.0) gm/dl Globulin (2.5-4.0) gm/dl Albumin/Globulin Ratio (0.9-2) TSH (0.300-4.500) uIu/ml Urine Color Yellow Urine Appearance Clear (Clear) Urine pH 8.0 H (4.5-7.5) Ur Specific [place] 1.010 (1.000-1.030) Urine Protein Negative (Negative) Urine Glucose (UA) Negative (Negative) Urine Ketones 1+ H (Negative) Urine Blood Negative (Negative) Urine Nitrite Negative (Negative) Urine Bilirubin Negative (Negative) Urine Urobilinogen Negative (Negative) Ur Leukocyte Esterase Negative (Negative) Adenovirus (PCR) Not Detected (NotDetected) B. pertussis DNA (PCR) Not Detected (NotDetected) B.parapertussis DNA PCR Not Detected (NotDetected) C. pneumoniae DNA (PCR) Not Detected (NotDetected) Coronavirus OC43 (PCR) Not Detected (NotDetected) Coronavirus HKU1 (PCR) Not Detected (NotDetected) Coronavirus 229E (PCR) Not Detected (NotDetected) SARS-CoV-2 (PCR) Not Detected (NotDetected) Coronavirus NL63 (PCR) Not Detected (NotDetected) Human Metapneumovir PCR Not Detected (NotDetected) Influenza A (H3) PCR DETECTED A* (NotDetected) Influenza Type B (PCR) Not Detected (NotDetected) M. pneumoniae (PCR) Not Detected (NotDetected) Parainfluenza 1 (PCR) Not Detected (NotDetected) Parainfluenza 2 (PCR) Not Detected (NotDetected) Parainfluenza 3 (PCR) Not Detected (NotDetected) Parainfluenza 4 (PCR) Not Detected (NotDetected) RSV (PCR) Not Detected (NotDetected) Entero/Rhino (PCR) Not Detected (NotDetected) Imaging Data My Impression: Chest xray: Chronic interstitial thickening, cardiomegaly. No significant change compared to previous. Radiologist's Impression: CT HEAD: No intracranial hemorrhage. No significant mass effect or midline shift. No cortical infarct. No appreciable alteration from the examination 01/20/2022. CTA HEAD: Negative intracranial CTA examination. The distal vertebral arteries, basilar artery and posterior cerebral arteries are patent. The internal carotid arteries are patent. The A1 segments and anterior cerebral arteries are patent. The M1 segments and distal middle cerebral branches are patent. Radiologist:Guillermina Reese MD Study ready at 22:44 and initial results transmitted at 00:15 CTA NECK: Negative cervical CTA examination. The common carotid, internal and external carotid arteries are patent. No dissection, stenosis or occlusion. The vertebral arteries are codominant and are patent without dissection or occlusion. Radiologist: Ace Reese MD Study ready at 22:45 and initial results transmitted at 00:17 MDM Narrative Patient was seen and evaluated as above in room B07. Review was performed of nursing notes and vital signs. I did review pertinent previous visits and patient history. After obtaining a thorough history and physical examination the above work up was performed. Patient presents to us today for evaluation of dizziness and feeling unwell. Clinically well-appearing and nontoxic on examination. Options of care were discussed with the patient. IV access was established. Labs were drawn. Patient was medicated with a small dose of oral meclizine, IV fluids, and IV Zofran. Labs reveal no leukocytosis or concerning anemia. Coags normal. Mild hyponatremia 128. Hypocalcemia 8.4. Troponin negative. TSH reveals euthyroid state. Urinalysis does not reveal any evidence of infection. Patient is positive for influenza A by PCR. Chest x-ray with chronic findings without evidence of acute process. CTA of the head and neck were negative. With the patient having influenza and persistent vertigo despite treatment here and inability to sit up/stand without significant vertigo it is felt that further evaluation and management is warranted in the inpatient setting. Patient case discussed with the hospitalist service. Please refer to further documentation regarding his stay. Patient amenable to plan of care as well as at bedside. Case was discussed with the attending physician. EKG was reviewed by myself and found to be Normal Sinus Rhythm at a rate of 65 beats per minute and per my interpretation reveals no ST elevation. QTc 476. QRS 124. An order was placed for continuous cardiac monitoring. The monitor shows a rate of 66 with sinus rhythm. GCS: 15 In the evaluation and treatment of this patient the following differential diagnoses were entertained: CVA, TIA, electrolyte disturbance, pneumonia, infection, ND, PE, infection, among others. Impression & Plan Vertigo, Hyponatremia, Influenza A Discharge Plan Visit Data Chief Complaint: Dizziness Stated Complaint: DIZZINESS/WEAKNESS ED Provider: Gary Kitchen ED Midlevel Provider: Nicholas Acuna Discharge Problem: Vertigo, Hyponatremia, Influenza A Patient Disposition: Admitted As Inpatient Condition: Good Discharge Instructions Interventions: ED Discharge Assessment Last Done: 10/25/22 03:12
[2022-10-24 22:17] LABS: Troponin I High Sensitivity 6.1 pg/ml (0-20)
[2022-10-24 22:18] LABS: Albumin Globulin Ratio 1.9 (0.9-2); BUN Creatinine Ratio 12.2 (10-20); Bilirubin,Total 0.7 mg/dl (0.2-1.0); Calcium 8.4 mg/dl (8.5-10.1); Creatinine Clr Calc Pharmacy 115.6 ml/min; Est GFR (African American) 106.1 ml/min; Est GFR (Non-African American) 91.5 ml/min; Globulin 2.1 gm/dl (2.5-4.0); Potassium 3.6 mmol/L (3.5-5.1); Total Protein 6.1 gm/dl (6.0-8.3)
[2022-10-24 22:18] LABS: Appearance Urine Clear (Clear); Bilirubin Urine Negative (Negative); Blood Urine Negative (Negative); Color Urine Yellow; Glucose Urine UA Negative (Negative); Ketones Urine 1+ (Negative); Leukocyte Esterase Urine Negative (Negative); Nitrite Urine Negative (Negative); Protein Urine Negative (Negative); Urobilinogen Urine Negative (Negative)
[2022-10-24] MEDS ORDERED: OPTIRAY 320 500ml IV ONE (22:36)
[2022-10-24 23:08] LABS: Adenovirus PCR Not Detected (NotDetected); Bordetella parapertussis PCR Not Detected (NotDetected); Bordetella pertussis PCR Not Detected (NotDetected); Chlamydia pneumoniae PCR Not Detected (NotDetected); Coronavirus 229E PCR Not Detected (NotDetected); Coronavirus CoV-2 (COVID19)PCR Not Detected (NotDetected); Coronavirus HKU1 PCR Not Detected (NotDetected); Coronavirus NL63 PCR Not Detected (NotDetected); Coronavirus OC43PCR Not Detected (NotDetected); Human Metapneumovirus PCR Not Detected (NotDetected); Influenza B PCR Not Detected (NotDetected); Mycoplasma pneumoniae PCR Not Detected (NotDetected); Parainfluenza Virus 1 PCR Not Detected (NotDetected); Parainfluenza Virus 2 PCR Not Detected (NotDetected); Parainfluenza Virus 3 PCR Not Detected (NotDetected); Parainfluenza Virus 4 PCR Not Detected (NotDetected); Respiratory Syncytial VirusPCR Not Detected (NotDetected); Rhinovirus/Enterovirus PCR Not Detected (NotDetected)
[2022-10-24 23:10] LABS: Influenza A (H3) PCR DETECTED (NotDetected)
[2022-10-24 23:36] LABS: INR 1.1 (0.9-1.1); Partial Thromboplastin Time 27.5 Seconds (21.0-31.0); Prothrombin Time 11.9 Seconds (9.0-12.0)
--- NOTE | 2022-10-25 01:12 | History & Physical Report ---
Date of Service October 25, 2022 Assessment & Plan (1) Vertigo: Plan: Acute onset yesterday afternoon. CT head, CTA head/neck, and recent MRI IAC were all unremarkable, and patient has a non-focal neurological exam - do not suspect CVA. He reports several previous episodes of vertigo - suspect exacerbation of likely chronic Meniere's disease due to Influenza and associated dehydration. - s/p Meclizine 12.5mg in ED - give 25mg now and continue on PRN basis - Zofran PRN for nausea - s/p NSS 500cc bolus in ED - continue with NSS @125cc/hr x1L - consider full brain MRI (despite recent IAC MRI) if symptoms persist - defer to primary team (2) Influenza A: Plan: With associated decreased PO intake/dehydration and sore throat. No hypoxia and symptoms mild in nature overall. CXR without evidence for pneumonia. - start Oseltamivir 75mg PO BID x5 days - Mucinex BID (3) Hyponatremia: Plan: Na 128, chronically runs low between 125 - 134. Suspect chronic hyponatremia possibly due to Losartan or Flecainide. Patient currently running on low side of chronic baseline which may be due in part to dehydration - hold Losartan - serum/urine osmolality and urine sodium pending - IVFs as stated above - trend in AM (4) Paroxysmal atrial fibrillation: Plan: Chronic, rate controlled. Continue home Eliquis, Metoprolol, Flecainide. (5) Hypertension: Plan: Chronic, controlled. Hold Losartan as stated above. Continue Amlodipine. (6) Hyperlipidemia: Plan: Continue home Atorvastatin (7) Anxiety disorder: Plan: Continue home Lexapro. Hold PRN Ativan for now. Plan FEN/GI: regular diet, NSS @125cc/hr x1L DVT Prophylaxis: Eliquis Code Status: full code Disposition: med/tele, PT/OT ordered History of Present Illness Chief Complaint: dizziness Primary Care Provider: Shakila Harding MD Lobito Carroll is a 72yo male with PMHx significant for paroxysmal a-fib (on Eliquis, Metoprolol and Flecainide), HTN, HLD, GERD, BPH with LUTS, impingement syndrome of both shoulders, and anxiety. He presented to [facility] ED on 10/25 via EMS for sore throat, decreased PO intake and generalized weakness x1 day. He also developed vertigo yesterday afternoon that gets worse with head movement or attempts to walk and has persisted for ~10 hours now. When patient lies down and closes his eyes his vertigo resolves. He does report associated nausea with the vertigo. Of note patient has had several episodes of vertigo in the past. He also reports chronic tinnitus that has worsened over the last several weeks. 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 Patient drinks 1 beer per day. Denies smoking/drug use. Denies new medications. He is usually proficient in ADLs/iADLs. In the ED the patient was hypertensive to 170/93 but otherwise afebrile and stable on room air. Labs significant for leukopenia (ALC 0.39) and mild L shift without leukocytosis, Na 128 (baseline 125 to 134), TSH 1.09. Respiratory Biofire positive for Influenza A. CXR without consolidation/opacities. CT head and CTA head/neck were unremarkable without acute process or significant findings. In ED patient was given Meclizine 12.5mg PO x1, Zofran 4mg IV x1, and NSS 500cc bolus. Allergies Allergy/AdvReac Type Severity Reaction Status Date / Time bupropion Allergy Severe IRREGULAR Verified 10/16/22 15:10 HEARTBEAT/NAUSEA paroxetine Allergy Severe IRREGULAR Verified 10/16/22 15:10 HEARTBEAT/NAUSEA venlafaxine Allergy Intermediate IRREGULAR Verified 10/16/22 15:10 HEART BEAT warfarin Allergy Mild RASH Verified 10/16/22 15:10 Home Medications Medication Instructions Recorded Confirmed Type lysine 1,000 mg tablet 1,000 mg PO HS PRN NEEDED PER 10/11/21 10/24/22 History PT. apixaban 5 mg tablet (Eliquis) 5 mg PO BID #180 tabs 02/18/22 10/24/22 Rx metoprolol tartrate 25 mg tablet 25 mg PO BID #180 tabs 02/18/22 10/24/22 Rx azelastine 137 mcg (0.1 %) nasal 2 spray intranasal DAILY PRN 03/22/22 10/24/22 Rx spray aerosol congestion drainage #30 mL lorazepam 0.5 mg tablet 0.5 mg PO HS PRN anxiety and panic 05/20/22 10/24/22 Rx attacks #90 tabs losartan 100 mg tablet See Rx Instructions PO .COMPLEX 90 07/16/22 10/24/22 Rx days #135 tabs amlodipine 5 mg tablet 2.5 mg PO DAILY #45 tabs 07/23/22 10/24/22 Rx flecainide 50 mg tablet 50 mg PO Q12H #10 tabs 08/04/22 10/24/22 Rx atorvastatin 10 mg tablet (Lipitor) 10 mg PO DAILY #90 tabs 09/04/22 10/24/22 Rx escitalopram oxalate 10 mg tablet 10 mg PO DAILY #90 tabs 09/04/22 10/24/22 Rx ciclopirox 0.77 % topical cream 1 applic topical BID #15 grams 10/16/22 10/24/22 Rx fluocinolone acetonide oil 0.01 % 4 drp otic (ear) BID PRN EAR 10/24/22 10/24/22 History ear drops ITCHINESS Past Med/Surg History Medical History Bradycardia Asymptomatic. Cervical radiculopathy Enlarged prostate with lower urinary tract symptoms (LUTS) Generalized osteoarthritis Including the lumbar spine and left hip now s/p L total hip arthroplasty (03/19/19). Hearing deficit History of panic attacks Hyperlipidemia Hypertension Left varicocele Nasal septal deviation Paroxysmal atrial fibrillation Followed by Cardiology ([facility]). Well controlled on low-dose flecainide per cardio. On Eliquis. Retinal detachment with retinal defect, unspecified right Sensorineural hearing loss (SNHL) of left ear with restricted hearing of right ear Very poor word recognition Spondylisthesis Thoracic aortic aneurysm Dilated aortic root remains unchanged at 4.8 cm and ascending aorta remains unchanged at 4.5 cm per most recent cardiology note 01/26/2021. Tubular adenoma of colon Surgical History Detached retina, right REPAIRED Fusion of spine ACDF Ganglion cyst RT THUMB GANGLION CYSTECTOMY History of carpal tunnel release History of cataract surgery RT/LEFT History of colonoscopy 12/2018 seen by [facility] History of esophagogastroduodenoscopy (EGD) History of kidney surgery History of lithotripsy History of lumbar surgery CYSTECTOMY History of tonsillectomy History of tooth extraction S/P hip replacement Left 2019 Family History Father Family history of diabetes mellitus Diabetes Stroke Hypertension Grandfather Colorectal cancer Family hx of colon cancer Myocardial infarction Sister Cancer Son Anxiety Brother Hypertension Denies family history of Ovarian cancer Prostate cancer Breast cancer Lung cancer Social History Smoking Status: Never smoker Second Hand Exposure: No; Hx Alcohol Use: Yes Alcohol type: beer Alcohol Intake Frequency: 4 or More x per/Week Hx Substance Use: No Preferred Language: Bur[place]ian Communication Ability: Effective Visual Impairment: Partially Limited Hearing Ability: Hard of Hearing 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 Required: No Beliefs That Will Affect Care: None marital status: Current Living Situation: Spouse Current Living Situation Comment: [employer] - current occupational status: retired How many Children do You have: 4 Feels Safe at Home: Yes Childhood Exposure to Second-Hand Smoke: Yes caffeine: Yes (coffee ) Dental Care, Regularly: Yes Physical Activity Frequency: Daily Seatbelt Use: always Sunscreen Use: Yes Assistive Devices: Cane and Walker Assistive Devices Comment: has access to devices but does not use Review of Systems Review of Systems: All systems reviewed & are unremarkable except as noted in HPI & below Physical Exam 2 Physical Exam: General: A&Ox3. NAD. Cooperative. HEENT: Atraumatic, normocephalic. Pulm: CTAB A&P. -wheezes, -rales, -rhonchi. Symmetrical chest rise. No increase work of breathing. No respiratory distress. Cardiac: RRR, -mrg. Radial pulses intact and symmetrical. No LE edema. Abdominal: soft, non-tender, non-distended, BS x 4 Skin: warm, dry, no rash Neurologic: patellar DTR's 2+ bilat, sensation intact and PERRL, EOMI, accommodation nl, no face palsy, no dysarthria normal touch/pain/proprioception and CN's II-XI intact bilaterally; no focal motor deficits Results & Data Results & Data ([facility]) Vital Signs (Past 12 Hours) Vital Signs Temp Pulse Pulse Resp BP BP Pulse Ox 10/25/22 00:47 78 18 170/93 H 94 10/24/22 22:51 78 20 159/90 H 98 10/24/22 21:49 98 10/24/22 20:51 10/24/22 20:11 37.2 C 67 20 169/104 H 97 O2 Del Method 10/25/22 00:47 Room Air 10/24/22 22:51 10/24/22 21:49 Room Air 10/24/22 20:51 Room Air 10/24/22 20:11 Room Air Supervising Physician Co-Signing Physician Notes Attending addendum: I have physically seen this patient, have supervised the medical residents activities, and agree with the H&P unless as otherwise noted. Assessment and Plan: Intractable vertigo- CT head, CTA head and neck and recent MRI IAC without acute changes Has history of several previous episodes of vertigo. Likely this episode aggravated by influenza A infection Received meclizine 12.5 mg in ED with some improvement Meclizine 25 mg p.o. every 6 hours as needed Zofran 4 mg IV every 6 hours as needed Received normal saline 500 cc bolus in the ED Continue NSS at 125 MLS per hour for 1 L For brain MRI if symptoms persist Influenza A- Start Tamiflu renally adjusted dosing x5 days Mucinex 60 mg p.o. twice daily Chronic hyponatremia- Sodium 128 in his usual range 125-134 Check serum and urine osmolality Hold losartan IV fluids as above Repeat laboratories in a.m. Paroxysmal atrial fibrillation/hypertension- Continue amlodipine, Eliquis, metoprolol and flecainide. Hold losartan as noted above Remaining orders and notations as noted Resident Activity Tracking Resident Involvement: Resident Care Provided Care Provided: Adult Hospital Medicine
[2022-10-25] MEDS ORDERED: SODIUM CHLORIDE 0.9% 1000ML 1,000 ML IV SCH (03:31)
[2022-10-25] MEDS ORDERED: MECLIZINE HCL 25 MG TAB PO STA (03:31)
[2022-10-25] MEDS: ONDANSETRON INJ 2 MG/ML 2 ML VIAL IV PRN ×2 (03:54→17:01)
--- NOTE | 2022-10-25 06:34 | CT Scan Report ---
CT ANGIOGRAM OF THE BRAIN COMBO; CT ANGIOGRAM OF THE NECK CLINICAL HISTORY: Vertigo. COMPARISON STUDY: CT of the brain dated 08/17/2015. TECHNIQUE: Unenhanced axial CT scan of the brain is performed. Subsequently, following the IV adminis tration of 108 of Optiray 320, CT angiogram of the head and neck was performed from the aortic arch t o the vertex. Images are reviewed in the axial, sagittal, and coronal planes. 3-D MIPS images are cre ated and assessed. IV contrast was administered without complication. All measurements were calculate d based on NASCET criteria. A dose lowering technique was utilized adhering to the principles of ALA RA. CT DOSE: 1281.43 mGy.cm FINDINGS: Brain parenchyma: There is age-related and delusional change noting minimal microangiopathic disease. There is no hemorrhage, mass effect, or evidence of acute territorial ischemia by CT criteria. There is no evidence of enhancing mass lesion on the angiogram phase images. The ventricles, sulci, and ci sterns are prominent secondary to involutional change. Silverio-white matter differentiation is preserved . No extra-axial fluid collection is seen. Thoracic aorta: Visualized portions of the thoracic aorta are normal in caliber. The aortic arch demo nstrates standard 3-vessel anatomy. Right carotid arterial system: The right common carotid artery is widely patent, as are the right int ernal and external carotid arteries. Calcified plaque is noted in the carotid bulb. Left carotid arterial system: The left common carotid artery is widely patent, as are the left director internal communications al and external carotid arteries. Mild calcified plaque is seen in the carotid bulb. Vertebral arteries: The vertebral arteries are widely patent bilaterally and codominant. Subclavian arteries: Widely patent bilaterally. Intracranial vasculature: There is atherosclerotic calcification of the cavernous carotid and vertebr al arteries. The [place] is developmentally complete. The internal carotid arteries are kim nt at the skull base, as are the anterior and middle cerebral arteries bilaterally. The vertebrobasil ar system and posterior cerebral arteries are widely patent. The vertebral arteries are codominant. T here is no aneurysm, high-grade stenosis, or focal vessel cut off seen throughout the intracranial ci rculation. Jugular veins: Patent bilaterally. Dural sinuses: Patent. Lung apices: Partially visualized upper lobe lung parenchyma appears clear. Soft tissues: The visualized pharyngeal soft tissues are normal in appearance noting angiographic pha se technique. The oropharyngeal airway appears widely patent. The salivary and thyroid glands are nor mal in appearance. No cervical lymphadenopathy is seen. Skeletal structures: The skeletal structures are osteopenic. The calvarium appears intact. The cervic al spine is maintained noting multilevel spondylosis. No lytic or blastic lesion is seen. Orbits: The bony orbits are intact. Orbital contents are normal as visualized noting bilateral ocular lens implants. Sinuses and mastoids: The paranasal sinuses are clear. The mastoid air cells are well pneumatized. IMPRESSION: 1. There is no hemorrhage, mass effect, or evidence of acute territorial ischemia by CT criteria. 2. Unremarkable CT angiogram of the brain. 3. Unremarkable CT angiogram of the neck. ACT 112: Negative or not required by law. Electronically signed by: Zechariah Stevens M.D. 10/25/2022 6:31 AM
--- NOTE | 2022-10-25 07:16 | XRay Report ---
SINGLE VIEW CHEST CLINICAL HISTORY: Dizziness. FINDINGS: An AP, portable, upright chest radiograph is compared to study dated 01/20/2022 and correlat ed with chest CT dated 01/05/2022. The examination is degraded by portable technique and apical lordoti c positioning. The heart is enlarged. The pulmonary vasculature is noncongested. Chronic interstitial thickening is similar to previous. There is bibasilar scarring/atelectasis. No airspace consolidatio n or large pleural effusion is identified. No pneumothorax is seen. The skeletal structures are osteo penic. The bony thorax is grossly intact. IMPRESSION: Cardiomegaly with no acute cardiopulmonary abnormality identified. ACT 112: Negative or not required by law. Electronically signed by: Zechariah Stevens M.D. 10/25/2022 7:15 AM
[2022-10-25 08:02] LABS: BUN Creatinine Ratio 9.2 (10-20); Creatinine Clr Calc Pharmacy 111.4 ml/min; Est GFR (African American) 104.9 ml/min; Est GFR (Non-African American) 90.5 ml/min; Magnesium 1.9 mg/dl (1.7-2.4); Potassium 3.5 mmol/L (3.5-5.1)
--- NOTE | 2022-10-25 08:03 | Hospitalist Progress Note ---
Date of Service October 25, 2022 Assessment & Plan (1) Vertigo: Plan: - Pt reports several previous episodes of vertigo - suspect exacerbation of likely chronic Meniere's disease due to Influenza - CT head, CTA head/neck unremarkable - recent MRI IAC neg for inner or middle ear abnormality, sellar mass which may represent a macroadenoma - no need for MRI brain at this point as CVA seems unlikely - Zofran PRN for nausea, meclizine 25 mg PRN - consulted OT/PT for waqas saxena (2) Influenza A: Plan: - No hypoxia and symptoms mild in nature overall - CXR without evidence for pneumonia - pt would not like oseltamivir d/t his feeling ill from taking it - Mucinex PRN (3) Hyponatremia: Plan: Na 128, chronically runs low between 125 - 134. 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 - s/p NSS 500cc bolus in ED and 1L NSS - hold home Losartan (pt explains his BP meds were recently changed, he is unsure of the meds) - serum Osm 264, urine Osm 557, urine sodium 157 - 1200 mL fluid restriction, one dose 20 mg lasix given - continue to monitor (4) Paroxysmal atrial fibrillation: Plan: - Chronic, rate controlled - Continue home Eliquis, Metoprolol, Flecainide (5) Hypertension: Plan: - Chronic, controlled - Hold Losartan as stated above - Continue Amlodipine (6) Hyperlipidemia: Plan: - Continue home Atorvastatin (7) Anxiety disorder: Plan: - Continue home Lexapro - Hold PRN Ativan for now Plan FEN/GI: regular diet, 1200 mL fluid restriction DVT Prophylaxis: Eliquis Code Status: full code Disposition: med/tele, PT/OT ordered Admission and Anticipated Discharge Date Admission Date: October 25, 2022 Supervising Physician Co-Signing Physician Notes I personally examined the patient and verified all brown points of history and exam, discussed case, and agree with decision making with Dr. Parisi with the following additions/exceptions: S-patient seen in the afternoon and was out of bed to the chair and stated that he was actually feeling much improved and very minimal dizziness. No further nausea. O- Vitals reviewed Gen: AAOx3, NAD HEENT: Anicteric sclerae, EOMI, PERRLA, no nystagmus CV: RRR no mgr nl S1S2 Pulm: CTAB no wcr Abd: +BS soft NT ND no masses or hernias Ext: No edema, 2+ DP pulses Skin: No rashes, warm/dry Neuro: Full strength throughout, CN II through XII intact Labs, Rads, and ECG reviewed A/G-[id number]-ec[age]-old male here with vertigo with history of tinnitus and recently acute on chronic hearing loss. With previous episodes of similar vertigo not lasting as long as this. Feeling better now. Awaiting PT/OT evaluations Continue meclizine as needed Giving diuretics in case of Mnire's Follow-up with ENT as an outpatient Consider neurology follow-up as well Would only get brain MRI tomorrow if symptoms do not continue to improve or worsen Discontinue Tamiflu as he is worried it will cause him nausea and vomiting like it did for his . Supportive care otherwise for influenza For hyponatremia, suspect SIADH-fluid restrict. Continue home escitalopram as he has been on this for a long time. Subjective Pt is a 72yo male with PMH significant for paroxysmal afib, HTN, HLD, GERD, BPH with LUTS, and anxiety presenting to the hospital due to dizziness. Pt is still feeling dizzy this morning. He explains that it is hard for him to even sit up in bed without feeling more dizzy (although he is sitting up further in bed than last night). He endorses a warm feeling that spreads up from his legs to his neck when these episodes occur. He gets "tunnel vision." He denies any heart palpations during these episodes. He also mentions weeks-months of tinnitus. Per chart review, he also has a hx of hearing loss. Review of Systems Review of Systems: As per HPI. Otherwise negative. Physical Exam Constitutional: NAD. Vitals WNL. Eyes: no conjunctival abnormality Respiratory: CTA bilaterally. No rhonchi, wheezing, or crackles. Non labored breathing. Cardiovascular: RRR. No murmur noted. No LL edema. Gastrointestinal (Abdomen): Nontender, +BS. No masses noted. Skin: no rashes, warm and dry Psychiatric: Alert. Mood and affect congruent. Results & Data Results & Data ([facility]) Vital Signs (Past 12 Hours) Vital Signs Temp Pulse Pulse Resp BP BP BP 10/25/22 07:41 36.7 C 68 18 155/80 H 10/25/22 07:00 69 10/25/22 03:32 72 10/25/22 03:33 10/25/22 03:33 37.1 C 74 18 165/91 H 10/25/22 03:00 63 18 152/91 H 10/25/22 00:47 78 18 170/93 H 10/24/22 22:51 78 20 159/90 H 10/24/22 21:49 10/24/22 20:51 10/24/22 20:11 37.2 C 67 20 169/104 H Pulse Ox O2 Del Method 10/25/22 07:41 97 Room Air 10/25/22 07:00 10/25/22 03:32 10/25/22 03:33 Room Air 10/25/22 03:33 96 Room Air 10/25/22 03:00 93 Room Air 10/25/22 00:47 94 Room Air 10/24/22 22:51 98 10/24/22 21:49 98 Room Air 10/24/22 20:51 Room Air 10/24/22 20:11 97 Room Air Resident Activity Tracking Resident Involvement: Resident Care Provided Care Provided: Adult Hospital Medicine
[2022-10-25] MEDS: APIXABAN 5 MG TABLET PO SCH ×2 (08:59→20:20)
[2022-10-25] MEDS: MECLIZINE HCL 25 MG TAB PO PRN ×2 (08:59→14:15)
[2022-10-25] MEDS: ATORVASTATIN 10 MG TAB PO SCH (09:00)
[2022-10-25] MEDS ORDERED: ESCITALOPRAM OXALATE 10 MG TAB PO SCH ×2 (09:00→21:00)
[2022-10-25] MEDS ORDERED: guaiFENesin 600 MG TABCR PO SCH (09:00)
[2022-10-25] MEDS: METOPROLOL TARTRATE 25 MG TAB PO SCH ×2 (09:00→20:21)
[2022-10-25] MEDS: amLODIPine BESYLATE 5 MG TAB PO SCH (09:00)
[2022-10-25] MEDS: FLECAINIDE ACETATE 100 MG TABLET PO SCH ×2 (09:00→20:21)
[2022-10-25] MEDS ORDERED: OSELTAMIVIR PHOSPHATE 75 MG CAP PO SCH (09:00)
--- NOTE | 2022-10-25 10:10 | Electrocardiogram Report ---
Test Reason : Blood Pressure : / mmHG Vent. Rate : 065 BPM Atrial Rate : 065 BPM P-R Int : 212 ms QRS Dur : 124 ms QT Int : 458 ms P-R-T Axes : 079 -25 -10 degrees QTc Int : 476 ms Poor data quality, interpretation may be adversely affected Sinus rhythm with 1st degree A-V block Incomplete right bundle branch block Left ventricular hypertrophy with QRS widening Abnormal ECG When compared with ECG of 20-JAN-2022 05:19, No significant change Confirmed by Kashif Francis ([id number]) on 10/25/2022 10:10:10 AM Referred By: REFERRED SELF Confirmed By:Kashif Francis
[2022-10-25] MEDS: ACETAMINOPHEN 325 MG TAB PO PRN (12:00)
[2022-10-25] MEDS ORDERED: FUROSEMIDE 20 MG TAB PO ONE (13:39)
--- NOTE | 2022-10-25 20:21 | Billing Data ---
Date of Service October 25, 2022 Coding Level of Care Code 71491 Subseq Obs Care Lvl 3
[2022-10-25] MEDS ORDERED: COUGH DROP (SUGAR FREE) LOZ 24 LOZ/1 BOX BUCCAL PRN (20:38)
--- NOTE | 2022-10-25 22:04 | Billing Data ---
Date of Service October 25, 2022 Coding Level of Care Code INT OBSERVATION CARE 69M LVL 3
[2022-10-26] MEDS: guaiFENesin 600 MG TABCR PO PRN ×2 (03:35→08:41)
[2022-10-26] MEDS ORDERED: BENZONATATE 100 MG CAPSULE PO ONE (03:43)
--- NOTE | 2022-10-26 06:45 | Hospitalist Progress Note ---
Date of Service October 26, 2022 Assessment & Plan (1) Vertigo: Plan: Vertigo - Pt reports several previous episodes of vertigo - suspect exacerbation of likely chronic Meniere's disease due to Influenza and associated dehydration - CT head, CTA head/neck unremarkable - recent MRI IAC neg for inner or middle ear abnormality, sellar mass which may represent a macroadenoma - no need for MRI brain at this point as CVA seems unlikely - Zofran PRN for nausea, meclizine 25 mg PRN - consulted OT/PT for waqas saxena Influenza A - No hypoxia and symptoms mild in nature overall - CXR without evidence for pneumonia - pt would not like oseltamivir d/t his feeling ill from taking it - Mucinex PRN Hyponatremia Na 128, chronically runs low between 125 - 134. 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 - s/p NSS 500cc bolus in ED and 1L NSS - hold home Losartan (pt explains his BP meds were recently changed, he is unsure of the meds) - serum Osm 264, urine Osm 557, urine sodium 157 - 1200 mL fluid restriction, one dose 20 mg lasix given - continue to monitor Paroxysmal Atrial Fibrillation - Chronic, rate controlled - Continue home Eliquis, Metoprolol, Flecainide Hypertension - Chronic, controlled - Hold Losartan as stated above - Continue Amlodipine Hyperlipidemia - Continue home Atorvastatin Anxiety Disorder - Continue home Lexapro - Hold PRN Ativan for now (2) Influenza A: (3) Hyponatremia: (4) Paroxysmal atrial fibrillation: (5) Hypertension: (6) Hyperlipidemia: (7) Anxiety disorder: Plan FEN/GI: regular diet, 1200 mL fluid restriction DVT Prophylaxis: Eliquis Code Status: full code Disposition: med/tele, PT/OT ordered Admission and Anticipated Discharge Date Admission Date: October 25, 2022 Results & Data Results & Data ([facility]) Vital Signs (Past 12 Hours) Vital Signs Temp Pulse Pulse Resp BP Pulse Ox O2 Del Method 10/26/22 04:00 37.0 C 62 18 154/83 H 94 Room Air 10/25/22 22:15 59 L 10/26/22 00:32 37.0 C 61 18 144/75 H 94 Room Air 10/25/22 20:49 36.9 C 56 L 18 150/79 H 95 Room Air Resident Activity Tracking Resident Involvement: Resident Care Provided Care Provided: Adult [facility] Medicine
[2022-10-26 06:48] LABS: Hematocrit (blood only) 42.1 % (40.1-51.0); Hemoglobin 15.2 g/dl (14.0-18.0); Mean Corpuscular Hemoglobin 33.3 pg (25.0-34.0); Mean Corpuscular Hgb Conc 36.1 g/dL (32.0-36.0); Mean Corpuscular Volume 92.3 fL (80.0-100.0); Mean Platelet Volume 8.6 fL (9.4-12.4); Platelet Count 160 K/uL (130-400); RDW Coefficient of Variation 11.5 % (11.5-14.5); Red Blood Count 4.56 M/uL (4.63-6.08)
[2022-10-26 07:13] LABS: BUN Creatinine Ratio 11.3 (10-20); Calcium 7.9 mg/dl (8.5-10.1); Creatinine Clr Calc Pharmacy 105.2 ml/min; Est GFR (African American) 102.7 ml/min; Est GFR (Non-African American) 88.6 ml/min; Potassium 3.4 mmol/L (3.5-5.1)
[2022-10-26] MEDS: ACETAMINOPHEN 325 MG TAB PO PRN (08:40)
[2022-10-26] MEDS: amLODIPine BESYLATE 5 MG TAB PO SCH (08:41)
[2022-10-26] MEDS: FLECAINIDE ACETATE 100 MG TABLET PO SCH (08:41)
[2022-10-26] MEDS: METOPROLOL TARTRATE 25 MG TAB PO SCH (08:41)
[2022-10-26] MEDS: APIXABAN 5 MG TABLET PO SCH (08:41)
[2022-10-26] MEDS: ATORVASTATIN 10 MG TAB PO SCH (08:41)
[2022-10-26] MEDS ORDERED: POLYETHYLENE (MIRALAX) 17 GM PACK PO PRN (12:03)
--- NOTE | 2022-10-26 13:32 | Discharge Summary ---
Date of Service October 26, 2022 Admission HPI Per Admitting Provider Lobito Carroll is a 72yo male with PMHx significant for paroxysmal a-fib (on Eliquis, Metoprolol and Flecainide), HTN, HLD, GERD, BPH with LUTS, impingement syndrome of both shoulders, and anxiety. He presented to [facility] on 10/25 via EMS for sore throat, decreased PO intake and generalized weakness x1 day. He also developed vertigo yesterday afternoon that gets worse with head movement or attempts to walk and has persisted for ~10 hours now. When patient lies down and closes his eyes his vertigo resolves. He does report associated nausea with the vertigo. Of note patient has had several episodes of vertigo in the past. He also reports chronic tinnitus that has worsened over the last several weeks. 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 Patient drinks 1 beer per day. Denies smoking/drug use. Denies new medications. He is usually proficient in ADLs/iADLs. In the ED the patient was hypertensive to 170/93 but otherwise afebrile and stable on room air. Labs significant for leukopenia (ALC 0.39) and mild L shift without leukocytosis, Na 128 (baseline 125 to 134), TSH 1.09. Respiratory Biofire positive for Influenza A. CXR without consolidation/opacities. CT head and CTA head/neck were unremarkable without acute process or significant findings. In ED patient was given Meclizine 12.5mg PO x1, Zofran 4mg IV x1, and NSS 500cc bolus. Admission Exam Per Admitting Provider Physical Exam: General: A&Ox3. NAD. Cooperative. HEENT: Atraumatic, normocephalic. Pulm: CTAB A&P. -wheezes, -rales, -rhonchi. Symmetrical chest rise. No increase work of breathing. No respiratory distress. Cardiac: RRR, -mrg. Radial pulses intact and symmetrical. No LE edema. Abdominal: soft, non-tender, non-distended, BS x 4 Skin: warm, dry, no rash Neurologic: patellar DTR's 2+ bilat, sensation intact and PERRL, EOMI, accommodation nl, no face palsy, no dysarthria normal touch/pain/proprioception and CN's II-XI intact bilaterally; no focal motor deficits Principal Diagnosis Vertigo, Influenza A Discharge Exam Constitutional WD/WN, vitals as above Eyes + anicteric sclerae conjunctiva normal ENMT external ear and nose normal, oropharynx normal Respiratory normal respiratory effort, lungs clear to auscultation Cardiovascular RRR, no murmur, no edema Gastrointestinal (Abdomen) normal bowel sounds, soft, nontender, no hepatosplenomegaly Skin no rashes, warm and dry Psychiatric A+Ox3, euthymic affect Discharge Data Allergies Allergy/AdvReac Type Severity Reaction Status Date / Time bupropion Allergy Severe IRREGULAR Verified 10/16/22 15:10 HEARTBEAT/NAUSEA paroxetine Allergy Severe IRREGULAR Verified 10/16/22 15:10 HEARTBEAT/NAUSEA venlafaxine Allergy Intermediate IRREGULAR Verified 10/16/22 15:10 HEART BEAT warfarin Allergy Mild RASH Verified 10/16/22 15:10 Consultations 10/25/22 00:44 ED Decision to Admit Stat Ordered Studies 10/24/22 21:49 CT angio head wo/w Urgent CT angio neck with con Urgent Hospital Course (1) Vertigo: Lobito is a 72 y/o male who was admitted to the hospital after a prolonged period of dizziness in addition to symptoms of nausea/sore throat, was found to be positive for influenza A. He noted that he has had episodes of dizziness since the 1969's, also has a hx of tinnitus and hearing loss. He recently had a MRI IAC which was negative for inner ear/middle ear abnormality- but did find sellar mass (normal TSH and prolactin level here). While admitted, had CT head and CTA head/neck which were unremarkable. This episode of dizziness/vertigo is suspected as an exacerbation of a likely chronic Meniere's disease due to influenza. Patient was given diuretic and Meclizine PRN, symptoms of dizziness improved significantly within 24 hours. In the same time period, patient began to have more symptoms of influenza- had cough overnight which made sleep more difficult. Patient declined Tamiflu treatment. Patient never had any symptoms of SOB/hypoxia/chest pain. CXR showed no signs of pneumonia. 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 Patient was discharged on 10/26 with resolution of vertigo symptoms. Encouraged patient to treat influenza symptomatically with Mucinex as needed, if symptoms worsen significantly/develop trouble breathing should go to ER for evaluation. Patient instructed to resume home medications and schedule hospital f/u appointment with PCP within 1 week. Also encouraged follow up with ENT (Dr. Gonzalez) for further work up regarding findings of MRI IAC. (2) Influenza A: (3) Hyponatremia: (4) Paroxysmal atrial fibrillation: (5) Hypertension: (6) Hyperlipidemia: (7) Anxiety disorder: Total Time Total Time Spent Total Time Spent (In Minutes): . <30 Discharge Plan Discharge Items Patient Disposition: Home - Self-Care Reason For Visit: VERTIGO, INFLUENZA, HYPONATREMIA Discharge Diagnosis: Vertigo, Influenza, Hyponatremia Condition on Discharge: Good Activity: Per Instructions section Non-emergency contact: Primary Care Provider Call non-emergency contact if: you have any medication questions and your symptoms worsen Follow-up/Referrals: Shakila Harding MD [Primary Care Provider] - Diet: Regular Addtl Attending Provider Instructions: Mr. Carroll, Tyson were admitted to the hospital after presenting to the emergency department with dizziness and a sore throat. Dizziness -You note that you have had episodes of dizziness in the past, but this was the longest lasting episode. (+ history of hearing loss and tinnitus) -Based on your presentation with influenza A as well, symptoms may have been worsened by some degree of dehydration -You were given a medication to help with the dizziness (Meclizine), today (10/26) you state that your symptoms are greatly improved -I recommend that you continue to follow up with Dr. Gonzalez/ENT Flu (Influenza A) -You were diagnosed with Influenza A while in the hospital -We discussed the option of starting Tamiflu to possibly shorten the length of your illness, which you declined -Symptoms from the flu can often last from 5-7 days -You can take [id number] Mucinex DM as needed for cough/chest congestion -It is important that you stay hydrated and get adequate rest -If your symptoms worsen significantly or you develop trouble breathing, you should contact your PCP or go to urgent care/ER for evaluation -You also noted to have some constipation today (10/26) for which you were given Miralax, if you continue having constipation at home you can take Miralax (1 capful per day, can increase to 1 capful 2 times per day if needed) -Upon discharge, please call your primary care doctor to make a hospital follow- up appointment. This should be scheduled so that you can be seen within 7 days of leaving the hospital. -Recommend resuming follow-up with ENT (Dr. Gonzalez) as you recently had an IAC MRI ordered by him that showed a mass that may indicate a macroadenoma per radiology. Pending Studies at Discharge: No Stand-Alone Forms: [facility], Smoking Cessation Medications and DC Order Prescriptions: New guaifenesin [Mucinex] 600 mg Tablet Extended Release 12hr 1,200 mg PO Q12 PRNQty: 0 0RF Continued Eliquis 5 mg tablet 5 mg PO BID Qty: 180 3RF metoprolol tartrate 25 mg tablet 25 mg PO BID Qty: 180 3RF lorazepam 0.5 mg tablet 0.5 mg PO HS PRN (Reason: anxiety and panic attacks) Qty: 90 1RF Hold Instructions: panic attacks only amlodipine 5 mg tablet 2.5 mg PO DAILY Qty: 45 3RF atorvastatin [Lipitor] 10 mg tablet 10 mg PO DAILY Qty: 90 3RF Label Comments: takes qam escitalopram oxalate 10 mg tablet 10 mg PO DAILY Qty: 90 3RF azelastine 137 mcg (0.1 %) aerosol,spray 2 spray intranasal DAILY PRN (Reason: congestion drainage) Qty: 30 1RF Rx Instructions: administer into each nostril flecainide 50 mg tablet 50 mg PO Q12H Qty: 10 0RF losartan 100 mg tablet See Rx Instructions PO .COMPLEX 90 Days Qty: 135 3RF Dose Instruction: TAKE 1 TAB IN THE MORNING PO TAKE 1/2 TAB IN THE EVENING; Rx Instructions: TAKE 1/2 TAB IN THE MORNING PO TAKE 1TAB IN THE EVENING; ciclopirox 0.77 % cream 1 applic topical BID Qty: 15 0RF lysine 1,000 mg tablet 1,000 mg PO HS PRN (Reason: NEEDED PER PT.) fluocinolone acetonide oil 0.01 % drops 4 drp otic (ear) BID PRN (Reason: EAR ITCHINESS) Rx Instructions: Apply to affected ear BID 2-3 days/week PRN itchy ear Discharge Orders: Discharge Order (Routine); Ordered 10/26/22 Ordered By: Nichole Finch/Other Patient Handouts: Vertigo Inner Ear Problems, Vertigo Staying Safe, Hyponatremia Dc, The Flu (Influenza) Admission Data Admit Date/Time: 10/25/22 02:04 Attending Provider: Nicolas Baires Admit Provider: Rowdy Wilcox Primary Care Provider: Shakila Harding Other Providers: Redd Burton Other Interventions: Discharge Summary Assessment (RN) Last Done: 10/26/22 13:38 Supervising Physician Co-Signing Physician Notes I personally examined the patient and verified all brown points of history and exam, discussed case, and agree with decision making with Dr Lopez. Feeling better, feels up to going home. Vitals noted, in general he is awake and alert pleasant no distress. HEENT normocephalic atraumatic mucous membranes moist. Breathing unlabored no accessory muscle use good effort. Skin shows no rashes no pallor or icterus. Neuro without focal deficits. Influenza Aseems to have set off flareup of his vertigo, all now improving. Safe/stable for home. Hyponatremia roughly in his baseline range. Otherwise as above
--- NOTE | 2022-10-26 18:36 | Billing Data ---
Date of Service October 26, 2022 Coding Level of Care Code 21970 OBS Care - Discharge
== END 2022-10-26 14:20 | disposition home or self-care (01) ==
LOC: ED 20:18 → 2W 20:18 → SUATTDRO 10-25 02:04 → 2W 10-25 03:12

== ENCOUNTER 2023-04-17 17:51 | Inpatient (IN) ==
[2023-04-17] MEDS ORDERED: SODIUM CHLORIDE 0.9% 1000ML 1,000 ML IV SCH (18:00)
[2023-04-17] MEDS ORDERED: CEFEPIME 2,000 MG/20 ML VIAL IV STA (18:00)
[2023-04-17] MEDS ORDERED: ACETAMINOPHEN 1,000 MG/100 ML VIAL IV STA (18:30)
--- NOTE | 2023-04-17 18:32 | Emergency Department Note ---
Impression & Plan Generalized weakness, Acute hyponatremia ED Provider Note HISTORY OF PRESENT ILLNESS: Patient is a 72-year-old male presenting with generalized weakness. Patient reports feeling generally unwell for the last 3 to 4 days. States that he has had generalized body aches and feels very unstable on his feet secondary to his weakness. Reports feeling lightheaded when he stands up too quickly. Denies any chest pain or shortness of breath. He has had a nonproductive cough. Has had multiple episodes of diarrhea, described as loose stool. He reports he has had 3-4 episodes of diarrhea a day for the last 3 days. He reports decreased appetite and poor oral intake. Denies any vomiting. Denies any abdominal pain. Denies any recent travel. Denies any recent antibiotic use. He does report low-grade fevers, Tmax up to 100. Denies any recent sick contact exposures. ROS: as above PHYSICAL EXAM: Constitutional: Patient appears in no acute distress. HENT: Head: Normocephalic and atraumatic. Eyes: EOMI, PERRL Mouth/Throat: Mucous membranes moist. Neck: Trachea midline. Neck supple. Cardiovascular: RRR, No murmurs, rubs or gallops. Intact distal pulses. Pulmonary/Chest: No respiratory distress. Breath sounds clear and equal bilaterally. No wheezes or rales. Abdominal: BS +. Abdomen soft, no tenderness, rebound or guarding. Musculoskeletal: No edema, tenderness or deformity noted. Skin: Warm and dry. No rash, erythema, pallor or cyanosis Psychiatric: Appropriate mood and affect for situation. Neurological: Alert and keenly responsive. CN II-XII grossly intact, moving all extremities equally and fully. MDM: - Vitals signs showed hypertension - History obtained via patient. Patient presents with generalized weakness. Patient reports feeling generally unwell for the last 3 to 4 days. He has had generalized body aches and feeling lightheaded when he gets up to move around. Denies any chest pain or shortness of breath. Has had a nonproductive cough. Reports multiple episodes of diarrhea. Denies any vomiting. Reports low-grade fevers at home. Denies any recent antibiotic use. - Chronic conditions affecting care: sensorineural hearing loss; HTN; HLD - Differential diagnoses include, but are not limited to: UTI; pneumonia; viral syndrome; ACS - Order placed for continuous cardiac monitoring. At this time, monitor showed rate of 70 bpm with normal sinus rhythm, per my interpretation. - External medical records reviewed. - EKG reviewed by myself showed normal sinus rhythm. Rate 73 bpm. QTc 460. No acute ischemic changes. Noted to have an incomplete RBBB, which has been seen on previous EKGs. - Laboratory workup interpreted by myself showed normal WBC; hyponatremia (Na 119); normal creatinine; normal troponin - Blood cultures obtained. - Lyme IgM and IgG negative. - CXR negative for pneumonia, per my interpretation. - UA negative for infection, but noted to have ketonuria. - COVID negative. - Patient given 1L NS and 2g IV cefepime (ordered in triage). Given 1g IV tylenol for headache. - Discussion was had with social media strategist about patient's case and need for admission. - Hospitalist, Dr. Arevalo, consulted for admission - Patient admitted to [facility] service for further evaluation and management. ASSESSMENT AND PLAN: Diagnosis: generalized weakness; acute hyponatremia Plan: admit Past Med/Surg History Medical History Bradycardia Cervical radiculopathy Enlarged prostate with lower urinary tract symptoms (LUTS) Generalized osteoarthritis Hearing deficit History of panic attacks Hyperlipidemia Hypertension Left varicocele Mass in region of sella turcica present on magnetic resonance imaging Nasal septal deviation Paroxysmal atrial fibrillation Retinal detachment with retinal defect, unspecified Sensorineural hearing loss (SNHL) of left ear with restricted hearing of right ear Sinus node dysfunction Spondylisthesis Thoracic aortic aneurysm Tubular adenoma of colon Surgical History Detached retina, right Fusion of spine Ganglion cyst History of carpal tunnel release History of cataract surgery History of colonoscopy History of esophagogastroduodenoscopy (EGD) History of kidney surgery History of lithotripsy History of lumbar surgery History of tonsillectomy History of tooth extraction S/P hip replacement Status post spinal surgery Family History Father Family history of diabetes mellitus Diabetes Stroke Hypertension Grandfather Colorectal cancer Family hx of colon cancer Myocardial infarction Sister Cancer Son Anxiety Brother Hypertension Denies family history of Ovarian cancer Prostate cancer Breast cancer Lung cancer Social History Smoking Status: Never smoker Second Hand Exposure: No; Do You Dip or Chew Tobacco: No; Hx Alcohol Use: Yes Alcohol type: beer Alcohol Intake Frequency: 4 or More x per/Week Hx Substance Use: No Preferred Language: Dutch Communication Ability: Effective Visual Impairment: Partially Limited Hearing Ability: Hard of Hearing Biomedical Engineering Technician Required: No Beliefs That Will Affect Care: None marital status: Current Living Situation: Spouse Current Living Situation Comment: [facility] - current occupational status: retired How many Children do You have: 4 Feels Safe at Home: Yes Childhood Exposure to Second-Hand Smoke: Yes Diet: regular caffeine: Yes (coffee ) Dental Care, Regularly: Yes Physical Activity Frequency: Daily Seatbelt Use: always Sunscreen Use: Yes Assistive Devices: Cane and Walker Allergies Allergies Allergy/AdvReac Type Severity Reaction Status Date / Time bupropion Allergy Severe IRREGULAR Verified 04/17/23 17:09 HEARTBEAT/NAUSEA paroxetine Allergy Severe IRREGULAR Verified 04/17/23 17:09 HEARTBEAT/NAUSEA venlafaxine Allergy Intermediate IRREGULAR Verified 04/17/23 17:09 HEART BEAT warfarin Allergy Mild RASH Verified 04/17/23 17:09 Home Meds Home Medications Medication Instructions Recorded Confirmed lysine 1,000 mg tablet 1,000 mg PO HS PRN NEEDED PER 10/11/21 04/17/23 PT. fluocinolone acetonide oil 0.01 % 4 drp otic (ear) BID PRN EAR 10/24/22 04/17/23 ear drops ITCHINESS metoprolol tartrate 25 mg tablet 12.5 mg PO BID 03/26/23 04/17/23 efinaconazole 10 % topical 1 applic topical DAILY 04/17/23 04/17/23 solution with applicator (Jublia) escitalopram oxalate 10 mg tablet 15 mg PO DAILY 04/17/23 04/17/23 prednisolone acetate 1 % eye 1 drp OPR HS 04/17/23 04/17/23 drops,suspension Previous Rx's Medication Instructions Recorded azelastine 137 mcg (0.1 %) nasal 2 spray intranasal DAILY PRN 03/22/22 spray aerosol congestion drainage #30 mL ciclopirox 0.77 % topical cream 1 applic topical BID #15 grams 10/16/22 meclizine 12.5 mg tablet 12.5 mg PO BID PRN dizziness #1 tab 10/31/22 atorvastatin 10 mg tablet (Lipitor) 10 mg PO DAILY #90 tabs 01/02/23 flecainide 50 mg tablet 50 mg PO Q12H #180 tabs 01/30/23 felodipine 2.5 mg tablet,extended 2.5 mg PO BID #30 tabs 02/07/23 release 24 hr lorazepam 0.5 mg tablet 0.5 mg PO HS PRN anxiety and panic 02/07/23 attacks #90 tabs valsartan 160 mg tablet See Rx Instructions PO BID #60 tabs 02/07/23 apixaban 5 mg tablet (Eliquis) 5 mg PO BID #180 tabs 02/19/23 tamsulosin 0.4 mg capsule 0.4 mg PO DAILY #30 caps 04/02/23 Results & Data (ED) Vital Signs Vital Signs - 24 hr 04/17/23 18:03 04/17/23 18:35 04/17/23 18:56 Temperature 36.9 C Temperature Source Oral Pulse Rate 78 Respiratory Rate 16 Blood Pressure 161/91 H 163/91 H Blood Pressure Mean 114 115 Pulse Oximetry 96 97 Oxygen Delivery Method Room Air Sepsis Recent Fever Within 48 Hours Yes Sepsis New/Unexplained Change in Mental Status No Sepsis Action Taken by Nursing No Action Required 04/17/23 18:57 04/17/23 19:00 04/17/23 19:00 Temperature Temperature Source Pulse Rate 78 73 Respiratory Rate 19 20 Blood Pressure 155/78 H Blood Pressure Mean 103 Pulse Oximetry Oxygen Delivery Method Sepsis Recent Fever Within 48 Hours Sepsis New/Unexplained Change in Mental Status Sepsis Action Taken by Nursing 04/17/23 19:15 04/17/23 19:15 04/17/23 19:15 Temperature Temperature Source Pulse Rate 73 72 Respiratory Rate 22 Blood Pressure 148/81 H Blood Pressure Mean 103 Pulse Oximetry Oxygen Delivery Method Sepsis Recent Fever Within 48 Hours Sepsis New/Unexplained Change in Mental Status Sepsis Action Taken by Nursing 04/17/23 19:30 04/17/23 19:30 04/17/23 19:45 Temperature Temperature Source Pulse Rate 74 Respiratory Rate 21 Blood Pressure 146/88 H 144/78 H Blood Pressure Mean 107 100 Pulse Oximetry Oxygen Delivery Method Sepsis Recent Fever Within 48 Hours Sepsis New/Unexplained Change in Mental Status Sepsis Action Taken by Nursing 04/17/23 19:45 Temperature Temperature Source Pulse Rate 69 Respiratory Rate 17 Blood Pressure Blood Pressure Mean Pulse Oximetry Oxygen Delivery Method Sepsis Recent Fever Within 48 Hours Sepsis New/Unexplained Change in Mental Status Sepsis Action Taken by Nursing Laboratory Data 04/17/23 Unknown 04/17/23 Unknown Lab Results 04/17/23 04/17/23 04/17/23 Range/Units 18:35 19:00 19:00 WBC (4.8-10.8) K/ul RBC (4.70-6.10) M/uL Hgb (14.0-18.0) g/dl Hct (42.0-52.0) % MCV (80.0-100.0) fL MCH (25.0-34.0) pg MCHC (32.0-36.0) g/dL RDW Std Deviation (36.4-46.3) fL RDW Coeff of Richard (11.5-14.5) % Plt Count (130-400) K/uL MPV (9.4-12.4) fL Immature Gran % (Auto) % Neut % (Auto) % Lymph % (Auto) % [place] % (Auto) % Eos % (Auto) % Baso % (Auto) % Neut # (Auto) (1.40-6.50) K/uL Lymph # (Auto) (1.2-3.4) K/uL [place] # (Auto) (0.11-0.59) K/uL Eos # (Auto) (0-0.50) K/uL Baso # (Auto) (0-0.2) K/uL Immature Gran # (Auto) (0.01-0.20) K/uL PT (9.0-12.0) Seconds INR (0.9-1.1) APTT (21.0-31.0) Seconds PTT Ratio Sodium (136-145) mmol/L Potassium (3.5-5.1) mmol/L Chloride (98-107) mmol/L Carbon Dioxide (21-32) mmol/L Anion Gap (3-11) BUN (6-23) mg/dl Creatinine (0.6-1.4) mg/dl Est Cr Clr Drug Dosing ml/min Est GFR ( Amer) ml/min Est GFR (Non-Af Amer) ml/min BUN/Creatinine Ratio (10-20) Glucose (70-99(Fasting)) mg/dl Lactate 0.8 (0.4-2.0) mmol/L Calcium (8.6-10.3) mg/dl Magnesium (1.7-2.4) mg/dl Total Bilirubin (0.2-1.0) mg/dl Direct Bilirubin (0-0.2) mg/dl AST (13-39) U/L ALT (7-52) U/L Alkaline Phosphatase (34-104) U/L Troponin I High Sens (0-20) pg/ml Total Protein (6.0-8.3) gm/dl Albumin (3.4-5.0) gm/dl Procalcitonin (0-0.5) ng/ml Urine Color Dark Yellow Urine Appearance Clear (Clear) Urine pH 6.5 (4.5-7.5) Ur Specific [place] 1.026 (1.000-1.030) Urine Protein 2+ H (Negative) Urine Glucose (UA) Negative (Negative) Urine Ketones 2+ H (Negative) Urine Blood 2+ H (Negative) Urine Nitrite Negative (Negative) Urine Bilirubin 1+ H (Negative) Urine Urobilinogen Negative (Negative) Ur Leukocyte Esterase Negative (Negative) Urine WBC (Auto) 1-5 (0-5) /hpf Urine RBC (Auto) 10-30 H (0-4) /hpf U Hyaline Cast (Auto) 1-5 (0-5) /lpf U Epithel Cells (Auto) >30 H (0-5) /lpf Urine Bacteria (Auto) Negative (Negative) Ur Renal Epithelial Cell 0-5 (0-5) /lpf Lyme Disease IgG Ab (Negative) Lyme Disease IgM Ab (Negative) SARS-CoV-2 (PCR) NEGATIVE (Negative) Influenza Type A (PCR) Negative (Neg) Influenza Type B (PCR) Negative (Neg) RSV (RT-PCR) Negative (Neg) 04/17/23 04/17/23 04/17/23 Range/Units Unknown Unknown Unknown WBC 9.39 (4.8-10.8) K/ul RBC 4.16 L (4.70-6.10) M/uL Hgb 13.7 L (14.0-18.0) g/dl Hct 37.5 L (42.0-52.0) % MCV 90.1 (80.0-100.0) fL MCH 32.9 (25.0-34.0) pg MCHC 36.5 H (32.0-36.0) g/dL RDW Std Deviation 37.6 (36.4-46.3) fL RDW Coeff of Richard 11.5 (11.5-14.5) % Plt Count 154 (130-400) K/uL MPV 9.0 L (9.4-12.4) fL Immature Gran % (Auto) 0.4 % Neut % (Auto) 79.0 % Lymph % (Auto) 6.7 % [place] % (Auto) 13.7 % Eos % (Auto) 0.0 % Baso % (Auto) 0.2 % Neut # (Auto) 7.41 H (1.40-6.50) K/uL Lymph # (Auto) 0.63 L (1.2-3.4) K/uL [place] # (Auto) 1.29 H (0.11-0.59) K/uL Eos # (Auto) 0.00 (0-0.50) K/uL Baso # (Auto) 0.02 (0-0.2) K/uL Immature Gran # (Auto) 0.04 (0.01-0.20) K/uL PT 13.0 H (9.0-12.0) Seconds INR 1.2 H (0.9-1.1) APTT 32.1 H (21.0-31.0) Seconds PTT Ratio 1.1 Sodium 119 L* (136-145) mmol/L Potassium 3.7 (3.5-5.1) mmol/L Chloride 91 L (98-107) mmol/L Carbon Dioxide 20 L (21-32) mmol/L Anion Gap 8 (3-11) BUN 9 (6-23) mg/dl Creatinine 0.83 (0.6-1.4) mg/dl Est Cr Clr Drug Dosing 102.4 ml/min Est GFR ( Amer) 101.2 ml/min Est GFR (Non-Af Amer) 87.3 ml/min BUN/Creatinine Ratio 10.8 (10-20) Glucose 109 H (70-99(Fasting)) mg/dl Lactate (0.4-2.0) mmol/L Calcium 8.1 L (8.6-10.3) mg/dl Magnesium 1.6 L (1.7-2.4) mg/dl Total Bilirubin 1.1 H (0.2-1.0) mg/dl Direct Bilirubin 0.3 H (0-0.2) mg/dl AST 17 (13-39) U/L ALT 16 (7-52) U/L Alkaline Phosphatase 55 (34-104) U/L Troponin I High Sens 10.4 (0-20) pg/ml Total Protein 5.9 L (6.0-8.3) gm/dl Albumin 3.6 (3.4-5.0) gm/dl Procalcitonin (0-0.5) ng/ml Urine Color Urine Appearance (Clear) Urine pH (4.5-7.5) Ur Specific [place] (1.000-1.030) Urine Protein (Negative) Urine Glucose (UA) (Negative) Urine Ketones (Negative) Urine Blood (Negative) Urine Nitrite (Negative) Urine Bilirubin (Negative) Urine Urobilinogen (Negative) Ur Leukocyte Esterase (Negative) Urine WBC (Auto) (0-5) /hpf Urine RBC (Auto) (0-4) /hpf U Hyaline Cast (Auto) (0-5) /lpf U Epithel Cells (Auto) (0-5) /lpf Urine Bacteria (Auto) (Negative) Ur Renal Epithelial Cell (0-5) /lpf Lyme Disease IgG Ab (Negative) Lyme Disease IgM Ab (Negative) SARS-CoV-2 (PCR) (Negative) Influenza Type A (PCR) (Neg) Influenza Type B (PCR) (Neg) RSV (RT-PCR) (Neg) 04/17/23 Range/Units Unknown WBC (4.8-10.8) K/ul RBC (4.70-6.10) M/uL Hgb (14.0-18.0) g/dl Hct (42.0-52.0) % MCV (80.0-100.0) fL MCH (25.0-34.0) pg MCHC (32.0-36.0) g/dL RDW Std Deviation (36.4-46.3) fL RDW Coeff of Richard (11.5-14.5) % Plt Count (130-400) K/uL MPV (9.4-12.4) fL Immature Gran % (Auto) % Neut % (Auto) % Lymph % (Auto) % [place] % (Auto) % Eos % (Auto) % Baso % (Auto) % Neut # (Auto) (1.40-6.50) K/uL Lymph # (Auto) (1.2-3.4) K/uL [place] # (Auto) (0.11-0.59) K/uL Eos # (Auto) (0-0.50) K/uL Baso # (Auto) (0-0.2) K/uL Immature Gran # (Auto) (0.01-0.20) K/uL PT (9.0-12.0) Seconds INR (0.9-1.1) APTT (21.0-31.0) Seconds PTT Ratio Sodium (136-145) mmol/L Potassium (3.5-5.1) mmol/L Chloride (98-107) mmol/L Carbon Dioxide (21-32) mmol/L Anion Gap (3-11) BUN (6-23) mg/dl Creatinine (0.6-1.4) mg/dl Est Cr Clr Drug Dosing ml/min Est GFR ( Amer) ml/min Est GFR (Non-Af Amer) ml/min BUN/Creatinine Ratio (10-20) Glucose (70-99(Fasting)) mg/dl Lactate (0.4-2.0) mmol/L Calcium (8.6-10.3) mg/dl Magnesium (1.7-2.4) mg/dl Total Bilirubin (0.2-1.0) mg/dl Direct Bilirubin (0-0.2) mg/dl AST (13-39) U/L ALT (7-52) U/L Alkaline Phosphatase (34-104) U/L Troponin I High Sens (0-20) pg/ml Total Protein (6.0-8.3) gm/dl Albumin (3.4-5.0) gm/dl Procalcitonin 0.12 (0-0.5) ng/ml Urine Color Urine Appearance (Clear) Urine pH (4.5-7.5) Ur Specific [place] (1.000-1.030) Urine Protein (Negative) Urine Glucose (UA) (Negative) Urine Ketones (Negative) Urine Blood (Negative) Urine Nitrite (Negative) Urine Bilirubin (Negative) Urine Urobilinogen (Negative) Ur Leukocyte Esterase (Negative) Urine WBC (Auto) (0-5) /hpf Urine RBC (Auto) (0-4) /hpf U Hyaline Cast (Auto) (0-5) /lpf U Epithel Cells (Auto) (0-5) /lpf Urine Bacteria (Auto) (Negative) Ur Renal Epithelial Cell (0-5) /lpf Lyme Disease IgG Ab Negative (Negative) Lyme Disease IgM Ab Negative (Negative) SARS-CoV-2 (PCR) (Negative) Influenza Type A (PCR) (Neg) Influenza Type B (PCR) (Neg) RSV (RT-PCR) (Neg) Administered Medications Discontinued Medications Cefepime HCl (Maxipime) 2,000 mg in 20 mls @ 5 mls/min IV NOW STA; Protocol Stop: 04/17/23 18:03 Last Admin: 04/17/23 18:56 Dose: 5 mls/min Documented By: CHANCE Sodium Chloride (Nss 1000ml) 1,000 mls @ 999 mls/hr IV .Q1H1M JOYCE Stop: 04/17/23 19:00 Last Admin: 04/17/23 18:56 Dose: 999 mls/hr Documented By: CHANCE Acetaminophen (Ofirmev) 1,000 mg in 100 mls @ 400 mls/hr IV NOW STA Stop: 04/17/23 18:44 Last Infusion: 04/17/23 19:27 Dose: 0 mls/hr Documented By: Admin: 04/17/23 18:56 Dose: 400 mls/hr Documented By: CHANCE Discharge Plan Visit Data Chief Complaint: Illness Stated Complaint: COUGH, CHILLS, UNSTABLE ED Provider: Laina Clark Discharge Problem: Generalized weakness, Acute hyponatremia Forms Stand Alone Forms: My Clear Standards Prescriptions Prescriptions: No Action flecainide 50 mg tablet 50 mg PO Q12H Qty: 180 3RF Eliquis 5 mg tablet 5 mg PO BID Qty: 180 3RF azelastine 137 mcg (0.1 %) aerosol,spray 2 spray intranasal DAILY PRN (Reason: congestion drainage) Qty: 30 1RF Rx Instructions: administer into each nostril tamsulosin 0.4 mg capsule 0.4 mg PO DAILY Qty: 30 2RF valsartan 160 mg tablet See Rx Instructions PO BID Qty: 60 2RF Rx Instructions: 1 tab in AM / 0.5 tab in PM lorazepam 0.5 mg tablet 0.5 mg PO HS PRN (Reason: anxiety and panic attacks) Qty: 90 0RF Hold Instructions: panic attacks only felodipine 2.5 mg tablet extended release 24 hr 2.5 mg PO BID Qty: 30 2RF meclizine 12.5 mg tablet 12.5 mg PO BID PRN (Reason: dizziness) Qty: 1 0RF ciclopirox 0.77 % cream 1 applic topical BID Qty: 15 0RF atorvastatin [Lipitor] 10 mg tablet 10 mg PO DAILY Qty: 90 3RF Patient Comments: takes qam metoprolol tartrate 25 mg tablet 12.5 mg PO BID lysine 1,000 mg tablet 1,000 mg PO HS PRN (Reason: NEEDED PER PT.) fluocinolone acetonide oil 0.01 % drops 4 drp otic (ear) BID PRN (Reason: EAR ITCHINESS) Rx Instructions: Apply to affected ear BID 2-3 days/week PRN itchy ear prednisolone acetate 1 % drops,suspension 1 drp OPR HS Jublia 10 % solution with applicator 1 applic TOPICAL DAILY escitalopram oxalate 10 mg tablet 15 mg PO DAILY Referrals Referrals: Shakila Harding MD [Primary Care Provider] -
[2023-04-17 19:12] LABS: Basophils # (auto) 0.02 K/uL (0-0.2); Basophils % (auto) 0.2 %; Hematocrit (blood only) 37.5 % (42.0-52.0); Hemoglobin 13.7 g/dl (14.0-18.0); Immature Granulocytes # (auto) 0.04 K/uL (0.01-0.20); Immature Granulocytes % (auto) 0.4 %; Lymphocytes # (auto) 0.63 K/uL (1.2-3.4); Lymphocytes % (auto) 6.7 %; Mean Corpuscular Hemoglobin 32.9 pg (25.0-34.0); Mean Corpuscular Hgb Conc 36.5 g/dL (32.0-36.0); Mean Corpuscular Volume 90.1 fL (80.0-100.0); Monocytes # (auto) 1.29 K/uL (0.11-0.59); Monocytes % (auto) 13.7 %; Neutrophils # (auto) 7.41 K/uL (1.40-6.50); Platelet Count 154 K/uL (130-400); RDW Coefficient of Variation 11.5 % (11.5-14.5); RDW Standard Deviation 37.6 fL (36.4-46.3); Red Blood Count 4.16 M/uL (4.70-6.10); White Blood Count 9.39 K/ul (4.8-10.8)
[2023-04-17 19:22] LABS: Appearance Urine Clear (Clear); Bacteria Urine Automated Negative (Negative); Blood Urine 2+ (Negative); Color Urine Dark Yellow; Epithelial Cell Urine Auto >30 /lpf (0-5); Glucose Urine UA Negative (Negative); Ketones Urine 2+ (Negative); Leukocyte Esterase Urine Negative (Negative); Nitrite Urine Negative (Negative); Protein Urine 2+ (Negative); Specific Gravity Urine 1.026 (1.000-1.030); Urobilinogen Urine Negative (Negative); pH Urine 6.5 (4.5-7.5)
[2023-04-17 19:31] LABS: Bilirubin Urine 1+ (Negative)
[2023-04-17 19:40] LABS: Renal Epithelial Cells Urine 0-5 /lpf (0-5)
[2023-04-17 19:41] LABS: INR 1.2 (0.9-1.1); Partial Thromboplastin Ratio 1.1; Partial Thromboplastin Time 32.1 Seconds (21.0-31.0)
[2023-04-17 19:42] LABS: Procalcitonin 0.12 ng/ml (0-0.5)
[2023-04-17 19:43] LABS: Albumin Level 3.6 gm/dl (3.4-5.0); BUN Creatinine Ratio 10.8 (10-20); Bilirubin Direct 0.3 mg/dl (0-0.2); Bilirubin,Total 1.1 mg/dl (0.2-1.0); Calcium 8.1 mg/dl (8.6-10.3); Creatinine Clr Calc Pharmacy 102.4 ml/min; Est GFR (African American) 101.2 ml/min; Est GFR (Non-African American) 87.3 ml/min; Magnesium 1.6 mg/dl (1.7-2.4); Potassium 3.7 mmol/L (3.5-5.1); Total Protein 5.9 gm/dl (6.0-8.3); Troponin I High Sensitivity 10.4 pg/ml (0-20)
[2023-04-17 19:48] LABS: Lyme Ab IgG w/WB Rflx Negative (Negative); Lyme Ab IgM w/WB Rflx Negative (Negative)
[2023-04-17 19:53] LABS: Influenza A virus by PCR Negative (Neg); Influenza B virus by PCR Negative (Neg); RSV by PCR Negative (Neg); SARS CoV2 RNA(COVID-19) Ceph NEGATIVE (Negative)
--- NOTE | 2023-04-17 20:56 | History & Physical Report ---
Date of Service April 17, 2023 Assessment & Plan (1) Generalized weakness: (2) Acute hyponatremia: (3) Hyponatremia: (4) Gait instability: (5) Vertigo: (6) Sensorineural hearing loss (SNHL) of left ear with restricted hearing of right ear: (7) Paroxysmal atrial fibrillation: (8) Thoracic aortic aneurysm: (9) Hyperlipidemia: (10) Chronic anticoagulation: (11) Irritable bowel syndrome: (12) Enlarged prostate with lower urinary tract symptoms (LUTS): Plan Lobito Carroll is a 72 year old male with a PMH of paroxysmal A. Fib, HTN, GERD, thoracic aortic aneurysm (stable), and anxiety who presented to the ED for worsening weakness and admitted due to hyponatremia. Hyponatremia -Na of 119 (Na was 133 on 04/11/23). BUN 9, Cr 0.83 -Pt states he has had only two small cups of water in the past day, notes urine output is decreased -Patient is chronically hyponatremic to 125-low 130s, suspect this is worsened due to poor PO intake and diarrhea x3 days -Home medications (Valsartan, Flecainide) may also be contributing factor -Will order serum/urine osmolality and urine sodium -Does not appear hypervolemic, lungs clear to auscultation and no orthopnea, no history of CHF -Received NSS bolus in ED, will start NSS 75mL/hr with q4h BMP to closely mon itor sodium correction -Monitor input and output Diarrhea, Viral vs. Bacterial Etiology -Has had additional symptoms of cough, temp of 100F at home, fatigue -No recent antibiotic use and no known sick contacts -WBC 9.39, Neutrophil/Lymphocyte ratio elevated at 7. Afebrile since arrival and HR normal. -Blood culture pending -Procal 0.12, Lactate 0.8 -Received Cefepime in ED -Will defer further antibiotic treatment for now -Monitor daily CBC w/diff -COVID/FluA+B/RSV/Lyme testing all negative -Will order Stool Biofire Paroxysmal Atrial Fibrillation -Continue Flecainide, Metoprolol, Eliquis, Felodipine. Will hold Valsartan for now. -EKG sinus rhythm, rate controlled -Monitor on telemetry Weakness/Deconditioning -Likely secondary to poor PO intake over several days -Encourage PO intake -PT/OT ordered Hypertension -BP 150s/90s in ED -Continue home Felodipine, Metoprolol. Holding Valsartan for now but consider resuming as Na improving Hyperlipidemia -Continue home statin Vertigo -Continue home Meclizine PRN Anxiety -Continue home Escitalopram, home Ativan PRN Enlarged Prostate -Continue home Flomax Diet: Heart Healthy, NSS 75mL/hr VTE Prophylaxis: on Eliquis Dispo: Med Tele Code Status: Full Code History of Present Illness Primary Care Provider: Shakila Harding MD Lobito Carroll is a 72 year old male with a PMH of paroxysmal A. Fib, HTN, GERD, thoracic aortic aneurysm (stable), and anxiety who presented to the ED for worsening weakness. He has had diarrhea ongoing for 3 with 3-4 loose/watery bowel movements per day. He also has had poor intake of fluids (2 small cups of water per day) and has eaten little food. Notes a decreased amount of urine output in the same timeframe. No burning with urination or blood/change in color of bowel movements. His states he had a temperature to 100F last night and he has had some body aches. He states he is overall feeling very weak- notes it has been difficult to stand up from the couch. He has a history of vertigo and has also felt dizzy at times but has not had any falls. He denies any chest pain (note: he was seen in ED for chest pain with negative workup including CTA) or shortness of breath. He has had a cough on occasion when laying in bed at night but no orthopnea when laying flat. He lives at home with his . He states that his sodium is "usually low" but not this low. He notes that his extruder changed his Losartan to Valsartan in the past few months but does not recall any additional recent medication changes. Allergies Allergy/AdvReac Type Severity Reaction Status Date / Time bupropion Allergy Severe IRREGULAR Verified 04/17/23 17:09 HEARTBEAT/NAUSEA paroxetine Allergy Severe IRREGULAR Verified 04/17/23 17:09 HEARTBEAT/NAUSEA venlafaxine Allergy Intermediate IRREGULAR Verified 04/17/23 17:09 HEART BEAT warfarin Allergy Mild RASH Verified 04/17/23 17:09 Home Medications Medication Instructions Recorded Confirmed Type lysine 1,000 mg tablet 1,000 mg PO HS PRN NEEDED PER 10/11/21 04/17/23 [address] PT. azelastine 137 mcg (0.1 %) nasal 2 spray intranasal DAILY PRN 03/22/22 04/17/23 Rx spray aerosol congestion drainage #30 mL ciclopirox 0.77 % topical cream 1 applic topical BID #15 grams 10/16/22 04/17/23 Rx fluocinolone acetonide oil 0.01 % 4 drp otic (ear) BID PRN EAR 10/24/22 04/17/23 History ear drops ITCHINESS meclizine 12.5 mg tablet 12.5 mg PO BID PRN dizziness #1 tab 10/31/22 04/17/23 Rx atorvastatin 10 mg tablet (Lipitor) 10 mg PO DAILY #90 tabs 01/02/23 04/17/23 Rx flecainide 50 mg tablet 50 mg PO Q12H #180 tabs 01/30/23 04/17/23 Rx lorazepam 0.5 mg tablet 0.5 mg PO HS PRN anxiety and panic 02/07/23 04/17/23 Rx attacks #90 tabs valsartan 160 mg tablet See Rx Instructions PO BID #60 tabs 02/07/23 04/17/23 Rx apixaban 5 mg tablet (Eliquis) 5 mg PO BID #180 tabs 02/19/23 04/17/23 Rx metoprolol tartrate 25 mg tablet 12.5 mg PO BID 03/26/23 04/17/23 History tamsulosin 0.4 mg capsule 0.4 mg PO DAILY #30 caps 04/02/23 04/17/23 Rx efinaconazole 10 % topical 1 applic topical DAILY 04/17/23 04/17/23 History solution with applicator (Jublia) escitalopram oxalate 10 mg tablet 10 mg PO DAILY 04/17/23 04/18/23 History prednisolone acetate 1 % eye 1 drp OPR HS 04/17/23 04/17/23 History drops,suspension felodipine 2.5 mg tablet,extended 2.5 mg PO DAILY 04/18/23 04/18/23 History release 24 hr Past Med/Surg History Medical History Bradycardia Cervical radiculopathy Enlarged prostate with lower urinary tract symptoms (LUTS) Generalized osteoarthritis Hearing deficit History of panic attacks Hyperlipidemia Hypertension Left varicocele Mass in region of sella turcica present on magnetic resonance imaging Nasal septal deviation Paroxysmal atrial fibrillation Retinal detachment with retinal defect, unspecified Sensorineural hearing loss (SNHL) of left ear with restricted hearing of right ear Sinus node dysfunction Spondylisthesis Thoracic aortic aneurysm Tubular adenoma of colon Surgical History Detached retina, right Fusion of spine Ganglion cyst History of carpal tunnel release History of cataract surgery History of colonoscopy History of esophagogastroduodenoscopy (EGD) History of kidney surgery History of lithotripsy History of lumbar surgery History of tonsillectomy History of tooth extraction S/P hip replacement Status post spinal surgery Family History Father Family history of diabetes mellitus Diabetes Stroke Hypertension Grandfather Colorectal cancer Family hx of colon cancer Myocardial infarction Sister Cancer Son Anxiety Brother Hypertension Denies family history of Ovarian cancer Prostate cancer Breast cancer Lung cancer Social History Smoking Status: Never smoker Second Hand Exposure: No; Do You Dip or Chew Tobacco: No; Hx Alcohol Use: Yes Alcohol type: beer Alcohol Intake Frequency: 4 or More x per/Week Hx Substance Use: No Preferred Language: Mac[place] Communication Ability: Effective Visual Impairment: Partially Limited Hearing Ability: Hard of Hearing Insight Leader Required: No Beliefs That Will Affect Care: None marital status: Current Living Situation: Spouse Current Living Situation Comment: [facility] - current occupational status: retired How many Children do You have: 4 Feels Safe at Home: Yes Childhood Exposure to Second-Hand Smoke: Yes Diet: regular caffeine: Yes (coffee ) Dental Care, Regularly: Yes Physical Activity Frequency: Daily Seatbelt Use: always Sunscreen Use: Yes Assistive Devices: Glasses Review of Systems Review of Systems: As per HPI Physical Exam Constitutional: average body habitus; no acute distress Eyes: PERRL, conjunctivae normal, anicteric sclerae ENMT: external ear and nose normal, oropharynx normal Neck: trachea midline, no thyromegaly Respiratory: normal respiratory effort; no respiratory distress Lungs clear to auscultation bilaterally. No rales or rhonchi. Cardiovascular: Rate/Rhythm: regular rate and regular rhythm +1 nonpitting edema of bilateral lower extremities Gastrointestinal (Abdomen): normal bowel sounds, soft, nontender, no hepatosplenomegaly Musculoskeletal: no cyanosis or clubbing, extremities motor strength 5/5 Skin: no rashes, warm and dry Neurologic: normal touch/pain/proprioception, CN's II-XI intact bilaterally, moves all extremities and awake; no focal motor deficits Psychiatric: A+Ox3, euthymic affect Results & Data Results & Data Vital Signs (Past 12 Hours) Vital Signs Temp Pulse Resp BP Pulse Ox O2 Del Method 04/17/23 20:30 68 16 94 04/17/23 20:25 66 14 04/17/23 20:00 67 20 04/17/23 20:00 133/76 04/17/23 19:45 69 17 04/17/23 19:45 144/78 H 04/17/23 19:30 74 21 04/17/23 19:30 146/88 H 04/17/23 19:15 72 22 04/17/23 19:15 148/81 H 04/17/23 19:15 73 04/17/23 19:00 73 20 04/17/23 19:00 155/78 H 04/17/23 18:57 78 19 04/17/23 18:56 163/91 H 04/17/23 18:35 97 Room Air 04/17/23 18:03 36.9 C 78 16 161/91 H 96 Laboratory Results 04/17/23 04/17/23 04/17/23 Range/Units Unknown Unknown Unknown WBC (4.8-10.8) K/ul RBC (4.70-6.10) M/uL Hgb (14.0-18.0) g/dl Hct (42.0-52.0) % MCV (80.0-100.0) fL MCH (25.0-34.0) pg MCHC (32.0-36.0) g/dL RDW Std Deviation (36.4-46.3) fL RDW Coeff of Richard (11.5-14.5) % Plt Count (130-400) K/uL MPV (9.4-12.4) fL Immature Gran % (Auto) % Neut % (Auto) % Lymph % (Auto) % Waller % (Auto) % Eos % (Auto) % Baso % (Auto) % Neut # (Auto) (1.40-6.50) K/uL Lymph # (Auto) (1.2-3.4) K/uL Waller # (Auto) (0.11-0.59) K/uL Eos # (Auto) (0-0.50) K/uL Baso # (Auto) (0-0.2) K/uL Immature Gran # (Auto) (0.01-0.20) K/uL PT 13.0 H (9.0-12.0) Seconds INR 1.2 H (0.9-1.1) APTT 32.1 H (21.0-31.0) Seconds PTT Ratio 1.1 Sodium 119 L* (136-145) mmol/L Potassium 3.7 (3.5-5.1) mmol/L Chloride 91 L (98-107) mmol/L Carbon Dioxide 20 L (21-32) mmol/L Anion Gap 8 (3-11) BUN 9 (6-23) mg/dl Creatinine 0.83 (0.6-1.4) mg/dl Est Cr Clr Drug Dosing 102.4 ml/min Est GFR ( Amer) 101.2 ml/min Est GFR (Non-Af Amer) 87.3 ml/min BUN/Creatinine Ratio 10.8 (10-20) Glucose 109 H (70-99(Fasting)) mg/dl Lactate (0.4-2.0) mmol/L Calcium 8.1 L (8.6-10.3) mg/dl Magnesium 1.6 L (1.7-2.4) mg/dl Total Bilirubin 1.1 H (0.2-1.0) mg/dl Direct Bilirubin 0.3 H (0-0.2) mg/dl AST 17 (13-39) U/L ALT 16 (7-52) U/L Alkaline Phosphatase 55 (34-104) U/L Troponin I High Sens 10.4 (0-20) pg/ml Total Protein 5.9 L (6.0-8.3) gm/dl Albumin 3.6 (3.4-5.0) gm/dl Procalcitonin 0.12 (0-0.5) ng/ml Urine Color Urine Appearance (Clear) Urine pH (4.5-7.5) Ur Specific [place] (1.000-1.030) Urine Protein (Negative) Urine Glucose (UA) (Negative) Urine Ketones (Negative) Urine Blood (Negative) Urine Nitrite (Negative) Urine Bilirubin (Negative) Urine Urobilinogen (Negative) Ur Leukocyte Esterase (Negative) Urine WBC (Auto) (0-5) /hpf Urine RBC (Auto) (0-4) /hpf U Hyaline Cast (Auto) (0-5) /lpf U Epithel Cells (Auto) (0-5) /lpf Urine Bacteria (Auto) (Negative) Ur Renal Epithelial Cell (0-5) /lpf Lyme Disease IgG Ab Negative (Negative) Lyme Disease IgM Ab Negative (Negative) SARS-CoV-2 (PCR) (Negative) Influenza Type A (PCR) (Neg) Influenza Type B (PCR) (Neg) RSV (RT-PCR) (Neg) 04/17/23 04/17/23 04/17/23 Range/Units Unknown 19:00 19:00 WBC 9.39 (4.8-10.8) K/ul RBC 4.16 L (4.70-6.10) M/uL Hgb 13.7 L (14.0-18.0) g/dl Hct 37.5 L (42.0-52.0) % MCV 90.1 (80.0-100.0) fL MCH 32.9 (25.0-34.0) pg MCHC 36.5 H (32.0-36.0) g/dL RDW Std Deviation 37.6 (36.4-46.3) fL RDW Coeff of Richard 11.5 (11.5-14.5) % Plt Count 154 (130-400) K/uL MPV 9.0 L (9.4-12.4) fL Immature Gran % (Auto) 0.4 % Neut % (Auto) 79.0 % Lymph % (Auto) 6.7 % Waller % (Auto) 13.7 % Eos % (Auto) 0.0 % Baso % (Auto) 0.2 % Neut # (Auto) 7.41 H (1.40-6.50) K/uL Lymph # (Auto) 0.63 L (1.2-3.4) K/uL Waller # (Auto) 1.29 H (0.11-0.59) K/uL Eos # (Auto) 0.00 (0-0.50) K/uL Baso # (Auto) 0.02 (0-0.2) K/uL Immature Gran # (Auto) 0.04 (0.01-0.20) K/uL PT (9.0-12.0) Seconds INR (0.9-1.1) APTT (21.0-31.0) Seconds PTT Ratio Sodium (136-145) mmol/L Potassium (3.5-5.1) mmol/L Chloride (98-107) mmol/L Carbon Dioxide (21-32) mmol/L Anion Gap (3-11) BUN (6-23) mg/dl Creatinine (0.6-1.4) mg/dl Est Cr Clr Drug Dosing ml/min Est GFR ( Amer) ml/min Est GFR (Non-Af Amer) ml/min BUN/Creatinine Ratio (10-20) Glucose (70-99(Fasting)) mg/dl Lactate (0.4-2.0) mmol/L Calcium (8.6-10.3) mg/dl Magnesium (1.7-2.4) mg/dl Total Bilirubin (0.2-1.0) mg/dl Direct Bilirubin (0-0.2) mg/dl AST (13-39) U/L ALT (7-52) U/L Alkaline Phosphatase (34-104) U/L Troponin I High Sens (0-20) pg/ml Total Protein (6.0-8.3) gm/dl Albumin (3.4-5.0) gm/dl Procalcitonin (0-0.5) ng/ml Urine Color Dark Yellow Urine Appearance Clear (Clear) Urine pH 6.5 (4.5-7.5) Ur Specific [place] 1.026 (1.000-1.030) Urine Protein 2+ H (Negative) Urine Glucose (UA) Negative (Negative) Urine Ketones 2+ H (Negative) Urine Blood 2+ H (Negative) Urine Nitrite Negative (Negative) Urine Bilirubin 1+ H (Negative) Urine Urobilinogen Negative (Negative) Ur Leukocyte Esterase Negative (Negative) Urine WBC (Auto) 1-5 (0-5) /hpf Urine RBC (Auto) 10-30 H (0-4) /hpf U Hyaline Cast (Auto) 1-5 (0-5) /lpf U Epithel Cells (Auto) >30 H (0-5) /lpf Urine Bacteria (Auto) Negative (Negative) Ur Renal Epithelial Cell 0-5 (0-5) /lpf Lyme Disease IgG Ab (Negative) Lyme Disease IgM Ab (Negative) SARS-CoV-2 (PCR) NEGATIVE (Negative) Influenza Type A (PCR) Negative (Neg) Influenza Type B (PCR) Negative (Neg) RSV (RT-PCR) Negative (Neg) 04/17/23 Range/Units 18:35 WBC (4.8-10.8) K/ul RBC (4.70-6.10) M/uL Hgb (14.0-18.0) g/dl Hct (42.0-52.0) % MCV (80.0-100.0) fL MCH (25.0-34.0) pg MCHC (32.0-36.0) g/dL RDW Std Deviation (36.4-46.3) fL RDW Coeff of Richard (11.5-14.5) % Plt Count (130-400) K/uL MPV (9.4-12.4) fL Immature Gran % (Auto) % Neut % (Auto) % Lymph % (Auto) % Waller % (Auto) % Eos % (Auto) % Baso % (Auto) % Neut # (Auto) (1.40-6.50) K/uL Lymph # (Auto) (1.2-3.4) K/uL Waller # (Auto) (0.11-0.59) K/uL Eos # (Auto) (0-0.50) K/uL Baso # (Auto) (0-0.2) K/uL Immature Gran # (Auto) (0.01-0.20) K/uL PT (9.0-12.0) Seconds INR (0.9-1.1) APTT (21.0-31.0) Seconds PTT Ratio Sodium (136-145) mmol/L Potassium (3.5-5.1) mmol/L Chloride (98-107) mmol/L Carbon Dioxide (21-32) mmol/L Anion Gap (3-11) BUN (6-23) mg/dl Creatinine (0.6-1.4) mg/dl Est Cr Clr Drug Dosing ml/min Est GFR ( Amer) ml/min Est GFR (Non-Af Amer) ml/min BUN/Creatinine Ratio (10-20) Glucose (70-99(Fasting)) mg/dl Lactate 0.8 (0.4-2.0) mmol/L Calcium (8.6-10.3) mg/dl Magnesium (1.7-2.4) mg/dl Total Bilirubin (0.2-1.0) mg/dl Direct Bilirubin (0-0.2) mg/dl AST (13-39) U/L ALT (7-52) U/L Alkaline Phosphatase (34-104) U/L Troponin I High Sens (0-20) pg/ml Total Protein (6.0-8.3) gm/dl Albumin (3.4-5.0) gm/dl Procalcitonin (0-0.5) ng/ml Urine Color Urine Appearance (Clear) Urine pH (4.5-7.5) Ur Specific [place] (1.000-1.030) Urine Protein (Negative) Urine Glucose (UA) (Negative) Urine Ketones (Negative) Urine Blood (Negative) Urine Nitrite (Negative) Urine Bilirubin (Negative) Urine Urobilinogen (Negative) Ur Leukocyte Esterase (Negative) Urine WBC (Auto) (0-5) /hpf Urine RBC (Auto) (0-4) /hpf U Hyaline Cast (Auto) (0-5) /lpf U Epithel Cells (Auto) (0-5) /lpf Urine Bacteria (Auto) (Negative) Ur Renal Epithelial Cell (0-5) /lpf Lyme Disease IgG Ab (Negative) Lyme Disease IgM Ab (Negative) SARS-CoV-2 (PCR) (Negative) Influenza Type A (PCR) (Neg) Influenza Type B (PCR) (Neg) RSV (RT-PCR) (Neg) Supervising Physician Co-Signing Physician Notes Pt seen and examined in concert with Dr. Thompson. Agree with the documented findings as noted in the resident documentation in both the history and the Physical eaxma and discussed with her the overall plan in detail. Resident Activity Tracking Resident Involvement: Resident Care Provided Care Provided: Adult [facility] Medicine
[2023-04-17] MEDS ORDERED: APIXABAN 5 MG TABLET PO STA (22:52)
[2023-04-17] MEDS ORDERED: FLECAINIDE ACETATE 100 MG TABLET PO STA (22:52)
[2023-04-17] MEDS ORDERED: METOPROLOL TARTRATE 25 MG TAB PO STA (22:52)
[2023-04-17] MEDS ORDERED: FELODIPINE 2.5 MG TABCR PO STA (22:52)
[2023-04-17 23:18] LABS: BUN Creatinine Ratio 10.8 (10-20); Calcium 7.8 mg/dl (8.6-10.3); Creatinine Clr Calc Pharmacy 102.4 ml/min; Est GFR (African American) 101.2 ml/min; Est GFR (Non-African American) 87.3 ml/min; Potassium 3.6 mmol/L (3.5-5.1)
[2023-04-17] MEDS: SODIUM CHLORIDE 0.9% 1000ML 1,000 ML IV SCH (23:37)
[2023-04-18] MEDS ORDERED: NITROGLYCERIN SL 0.4 MG/TAB TAB SL PRN (04:25)
[2023-04-18] MEDS ORDERED: MECLIZINE 12.5 MG TAB PO PRN (04:25)
[2023-04-18] MEDS ORDERED: LORazepam 0.5 MG TAB PO PRN (04:25)
[2023-04-18] MEDS: ACETAMINOPHEN 325 MG TAB PO PRN ×2 (04:41→15:59)
--- NOTE | 2023-04-18 06:53 | Hospitalist Progress Note ---
Date of Service April 18, 2023 Assessment & Plan (1) Generalized weakness: (2) Acute hyponatremia: (3) Hyponatremia: (4) Gait instability: (5) Vertigo: (6) Sensorineural hearing loss (SNHL) of left ear with restricted hearing of right ear: (7) Paroxysmal atrial fibrillation: (8) Thoracic aortic aneurysm: (9) Hyperlipidemia: (10) Chronic anticoagulation: (11) Irritable bowel syndrome: (12) Enlarged prostate with lower urinary tract symptoms (LUTS): Plan Lobito Carroll is a 72 year old male with a PMH of paroxysmal A. Fib, HTN, GERD, thoracic aortic aneurysm (stable), and anxiety who presented to the ED for worsening weakness and admitted due to hyponatremia. Hyponatremia -On admission Na of 119 (Na was 133 on 04/11/23). BUN 9, Cr 0.83 -Oral intake is imporvinf -Patient is chronically hyponatremic to 125-low 130s, suspect this is worsened due to poor PO intake and diarrhea x3 days -Home medications (Valsartan, Flecainide) may also be contributing factor -Urine osmolality normal, urine sodium= 35 -Does not appear hypervolemic, lungs clear to auscultation and no orthopnea, no history of CHF -Received NSS bolus in ED, will continue NSS 100mL/hr with q8h BMP to closely monitor sodium correction -Monitor input and output Diarrhea, Viral vs. Bacterial Etiology -Has had additional symptoms of cough, temp of 100F at home, fatigue -No recent antibiotic use and no known sick contacts -no leukocytosis. Afebrile since arrival and HR normal. -Blood culture pending -Procal 0.12, Lactate 0.8 -Received Cefepime in ED -Will defer further antibiotic treatment for now -Monitor daily CBC w/diff -COVID/FluA+B/RSV/Lyme testing all negative -Will order Stool Biofire/c diff Paroxysmal Atrial Fibrillation -Continue Flecainide, Metoprolol, Eliquis, Felodipine. Will hold Valsartan for now. -EKG sinus rhythm, rate controlled -Monitor on telemetry Weakness/Deconditioning -Likely secondary to poor PO intake over several days -Encourage PO intake -PT/OT ordered Hypertension -BP 150s/90s in ED -Continue home Felodipine, Metoprolol. Holding Valsartan for now but consider resuming as Na improving Hyperlipidemia -Continue home statin Vertigo -Continue home Meclizine PRN Anxiety -Continue home Escitalopram, home Ativan PRN Enlarged Prostate -Continue home Flomax Diet: Heart Healthy, NSS 100mL/hr VTE Prophylaxis: on Eliquis Code Status: Full Code Admission and Anticipated Discharge Date Admission Date: April 17, 2023 Supervising Physician Co-Signing Physician Notes I also saw the patient and confirmed brown portions of the history and physical examination. Agree with the impression and plan as noted the resident documentation above. Exam 137/62, 71, 16, 38.6, 93% on room air Alert, and oriented. Ambulatory in the hallway with therapy; guard but appears to require no additional assistance Data Hemoglobin 13.6, platelet count 164 Sodium 123, potassium 3.8, BUN 10, creatinine 0.78 Imaging Chest x-ray dated 04/17/2023 shows a new left lower lobe airspace opacity consistent with pneumonia Micro Blood cultures dated 04/17/2023 are pending Impression and plan Hyponatremia, acute on chronic Acute worsening likely secondary to diarrheal illness, this on top of what appears to be a chronic hyponatremia Appropriate improvement with gentle hydration Mental status is clear; weakness is improving Pneumonia Present on chest x-ray 04/17, clear difference when compared to 04/11/2023 Continue antibiotics Additional per resident documentation Subjective Lobito is doing well this morning. Denies further episodes of diarrhea since admission. Appetite is somewhat improved. Fatigue is improving as well. Denies headache, vision changes, chest pain, dyspnea. Review of Systems Review of Systems: As per above Physical Exam Physical Exam: Constitutional: well-appearing, no acute distress HEENT: NCAT, no conjunctival injection CV: regular rhythm, no murmur appreciated, extremities well-perfused, no LE edema Resp: CTABL, no wheezes/rales/rhonchi appreciated, no increased work of breathing MSK: no gross deformities appreciated Skin: warm, dry, no rash appreciated Neuro: alert, oriented, no focal neurologic deficit appreciated Results & Data Results & Data Vital Signs (Past 12 Hours) Vital Signs Temp Pulse Pulse Pulse Resp BP BP 04/18/23 05:58 74 04/18/23 05:20 38.1 C H 04/18/23 04:54 04/18/23 04:54 38.4 C H 74 18 172/90 H 04/18/23 04:25 38.4 C H 74 18 172/90 H 04/17/23 23:41 63 16 146/80 H 04/17/23 23:11 66 04/17/23 22:30 62 20 04/17/23 22:30 158/97 H 04/17/23 22:15 65 18 04/17/23 22:05 66 24 04/17/23 22:05 178/95 H 04/17/23 21:00 64 18 04/17/23 21:00 154/83 H 04/17/23 20:45 62 17 04/17/23 20:45 150/81 H 04/17/23 20:30 151/87 H 04/17/23 20:30 68 16 04/17/23 20:25 66 14 04/17/23 20:00 67 20 04/17/23 20:00 133/76 04/17/23 19:45 69 17 04/17/23 19:45 144/78 H 04/17/23 19:30 74 21 04/17/23 19:30 146/88 H 04/17/23 19:15 72 22 04/17/23 19:15 148/81 H 04/17/23 19:15 73 04/17/23 19:00 73 20 04/17/23 19:00 155/78 H 04/17/23 18:57 78 19 04/17/23 18:56 163/91 H Pulse Ox O2 Del Method 04/18/23 05:58 04/18/23 05:20 04/18/23 04:54 Room Air 04/18/23 04:54 95 Room Air 04/18/23 04:25 95 Room Air 04/17/23 23:41 96 Room Air 04/17/23 23:11 04/17/23 22:30 94 04/17/23 22:30 04/17/23 22:15 95 04/17/23 22:05 04/17/23 22:05 04/17/23 21:00 95 04/17/23 21:00 04/17/23 20:45 94 04/17/23 20:45 04/17/23 20:30 04/17/23 20:30 94 04/17/23 20:25 04/17/23 20:00 04/17/23 20:00 04/17/23 19:45 04/17/23 19:45 04/17/23 19:30 04/17/23 19:30 04/17/23 19:15 04/17/23 19:15 04/17/23 19:15 04/17/23 19:00 04/17/23 19:00 04/17/23 18:57 04/17/23 18:56 Resident Activity Tracking Resident Involvement: Resident Care Provided Care Provided: Adult [facility] Medicine
[2023-04-18 07:31] LABS: Basophils # (auto) 0.02 K/uL (0-0.2); Basophils % (auto) 0.2 %; Eosinophils # (auto) 0.02 K/uL (0-0.50); Eosinophils % (auto) 0.2 %; Hematocrit (blood only) 36.7 % (42.0-52.0); Hemoglobin 13.6 g/dl (14.0-18.0); Immature Granulocytes # (auto) 0.05 K/uL (0.01-0.20); Immature Granulocytes % (auto) 0.6 %; Lymphocytes # (auto) 0.59 K/uL (1.2-3.4); Lymphocytes % (auto) 7.2 %; Mean Corpuscular Hemoglobin 32.5 pg (25.0-34.0); Mean Corpuscular Hgb Conc 37.1 g/dL (32.0-36.0); Mean Corpuscular Volume 87.6 fL (80.0-100.0); Mean Platelet Volume 8.9 fL (9.4-12.4); Monocytes # (auto) 1.09 K/uL (0.11-0.59); Monocytes % (auto) 13.3 %; Neutrophils # (auto) 6.43 K/uL (1.40-6.50); Neutrophils % (auto) 78.5 %; Platelet Count 164 K/uL (130-400); RDW Coefficient of Variation 11.5 % (11.5-14.5); RDW Standard Deviation 36.9 fL (36.4-46.3); Red Blood Count 4.19 M/uL (4.70-6.10)
[2023-04-18 07:45] LABS: Calcium 8.3 mg/dl (8.6-10.3); Creatinine Clr Calc Pharmacy 121.9 ml/min; Est GFR (African American) 109.2 ml/min; Est GFR (Non-African American) 94.2 ml/min; Magnesium 1.8 mg/dl (1.7-2.4); Potassium 3.7 mmol/L (3.5-5.1)
--- NOTE | 2023-04-18 08:25 | XRay Report ---
XR chest 1V portable HISTORY: Sepsis COMPARISON: Chest CTA 04/11/2023. FINDINGS: No pneumothorax. No pleural effusions. The cardiac silhouette remains mildly enlarged. Ther e is mild interstitial thickening, unchanged. There is no left lower lobe airspace opacity. This like ly represents a pneumonia. IMPRESSION: There is a new left lower lobe airspace opacity which likely represents a pneumonia. ACT 112: Negative or not required by law. Electronically signed by: Davy Cordova M.D. 04/18/2023 8:23 AM
[2023-04-18] MEDS: METOPROLOL TARTRATE 25 MG TAB PO SCH ×2 (08:26→21:14)
[2023-04-18] MEDS: FLECAINIDE ACETATE 100 MG TABLET PO SCH ×2 (08:27→21:17)
[2023-04-18] MEDS: ATORVASTATIN 10 MG TAB PO SCH (08:28)
[2023-04-18] MEDS: APIXABAN 5 MG TABLET PO SCH ×2 (08:29→21:13)
[2023-04-18] MEDS: TAMSULOSIN HCL 0.4 MG CAP PO SCH (08:29)
[2023-04-18] MEDS ORDERED: FELODIPINE 2.5 MG TABCR PO SCH (09:00)
[2023-04-18] MEDS ORDERED: ESCITALOPRAM OXALATE 10 MG TAB PO SCH (09:00)
[2023-04-18 09:02] LABS: BUN Creatinine Ratio 11.3 (10-20); Calcium 8.4 mg/dl (8.6-10.3); Creatinine Clr Calc Pharmacy 118.4 ml/min; Est GFR (African American) 107.9 ml/min; Est GFR (Non-African American) 93.1 ml/min; Potassium 3.8 mmol/L (3.5-5.1)
[2023-04-18] MEDS: SODIUM CHLORIDE 0.9% 1000ML 1,000 ML IV SCH ×2 (13:06→22:14)
[2023-04-18 15:08] LABS: BUN Creatinine Ratio 12.8 (10-20); Calcium 8.2 mg/dl (8.6-10.3); Creatinine Clr Calc Pharmacy 107.8 ml/min; Est GFR (African American) 103.8 ml/min; Est GFR (Non-African American) 89.6 ml/min; Potassium 3.8 mmol/L (3.5-5.1)
--- NOTE | 2023-04-18 15:21 | Electrocardiogram Report ---
Test Reason : Blood Pressure : / mmHG Vent. Rate : 073 BPM Atrial Rate : 073 BPM P-R Int : 212 ms QRS Dur : 114 ms QT Int : 418 ms P-R-T Axes : 078 -15 -14 degrees QTc Int : 460 ms Sinus rhythm with 1st degree A-V block Incomplete right bundle branch block Borderline ECG When compared with ECG of 11-APR-2023 18:47, No significant change was found Confirmed by Erick Howard ([id number]) on 04/18/2023 3:20:49 PM Referred By: REFERRED SELF Confirmed By:Adam Howard
[2023-04-18] MEDS: prednisoLONE acetate 1% OP SUSP 5 ML BTL OPR SCH (15:59)
[2023-04-18] MEDS ORDERED: AZITHROMYCIN 500 MG in DEXTROSE 5% 250 ML IV ONE (16:41)
[2023-04-18] MEDS ORDERED: cefTRIAXone SODIUM 1,000 MG in DEXTROSE 5% AD-VAN 50 ML IV SCH (16:45)
[2023-04-18] MEDS ORDERED: cefTRIAXone SODIUM 2,000 MG in DEXTROSE 5% 50 ML IV SCH (17:00)
[2023-04-18] MEDS ORDERED: prednisoLONE acetate 1% OP SUSP 5 ML BTL OPR SCH (21:00)
[2023-04-18] MEDS: DOXYCYCLINE HYCLATE 100 MG CAP PO SCH (21:14)
[2023-04-18 23:34] LABS: BUN Creatinine Ratio 13.7 (10-20); Calcium 7.9 mg/dl (8.6-10.3); Creatinine Clr Calc Pharmacy 115.2 ml/min; Est GFR (African American) 106.7 ml/min; Potassium 3.7 mmol/L (3.5-5.1)
[2023-04-19 06:23] LABS: Basophils # (auto) 0.02 K/uL (0-0.2); Basophils % (auto) 0.3 %; Eosinophils # (auto) 0.04 K/uL (0-0.50); Eosinophils % (auto) 0.6 %; Hematocrit (blood only) 35.3 % (42.0-52.0); Hemoglobin 12.8 g/dl (14.0-18.0); Immature Granulocytes # (auto) 0.05 K/uL (0.01-0.20); Immature Granulocytes % (auto) 0.7 %; Lymphocytes # (auto) 0.82 K/uL (1.2-3.4); Lymphocytes % (auto) 11.5 %; Mean Corpuscular Hemoglobin 32.7 pg (25.0-34.0); Mean Corpuscular Hgb Conc 36.3 g/dL (32.0-36.0); Mean Corpuscular Volume 90.1 fL (80.0-100.0); Mean Platelet Volume 8.8 fL (9.4-12.4); Monocytes # (auto) 1.21 K/uL (0.11-0.59); Monocytes % (auto) 16.9 %; Neutrophils # (auto) 5.01 K/uL (1.40-6.50); Platelet Count 163 K/uL (130-400); RDW Coefficient of Variation 11.7 % (11.5-14.5); RDW Standard Deviation 38.4 fL (36.4-46.3); Red Blood Count 3.92 M/uL (4.70-6.10); White Blood Count 7.15 K/ul (4.8-10.8)
[2023-04-19 06:40] LABS: BUN Creatinine Ratio 11.9 (10-20); Est GFR (African American) 110.5 ml/min; Est GFR (Non-African American) 95.3 ml/min; Potassium 3.7 mmol/L (3.5-5.1)
--- NOTE | 2023-04-19 06:47 | Hospitalist Progress Note ---
Date of Service April 19, 2023 Assessment & Plan Admission and Anticipated Discharge Date Admission Date: April 17, 2023 Review of Systems Review of Systems: As per above Results & Data Results & Data Vital Signs (Past 12 Hours) Vital Signs Temp Pulse Pulse Resp BP Pulse Ox O2 Del Method 04/19/23 06:29 37.1 C 66 18 150/86 H 93 Room Air 04/19/23 02:57 37.5 C 68 18 147/81 H 92 Room Air 04/19/23 01:00 62 04/18/23 22:56 37.2 C 66 18 153/83 H 93 Room Air 04/18/23 19:56 36.7 C 61 18 158/85 H 97 Room Air 04/18/23 19:19 70
[2023-04-19] MEDS: DOXYCYCLINE HYCLATE 100 MG CAP PO SCH (08:27)
[2023-04-19] MEDS: ATORVASTATIN 10 MG TAB PO SCH (08:27)
[2023-04-19] MEDS: METOPROLOL TARTRATE 25 MG TAB PO SCH (08:27)
[2023-04-19] MEDS: TAMSULOSIN HCL 0.4 MG CAP PO SCH (08:29)
[2023-04-19] MEDS: APIXABAN 5 MG TABLET PO SCH (08:29)
[2023-04-19] MEDS: prednisoLONE acetate 1% OP SUSP 5 ML BTL OPR SCH (08:31)
[2023-04-19] MEDS: FLECAINIDE ACETATE 100 MG TABLET PO SCH (08:31)
[2023-04-19] MEDS ORDERED: ESCITALOPRAM OXALATE 10 MG TAB PO SCH (09:00)
[2023-04-19] MEDS ORDERED: FELODIPINE 2.5 MG TABCR PO SCH (09:00)
--- NOTE | 2023-04-19 09:53 | XRay Report ---
XR chest 2V PA/lateral HISTORY: Sepsis. f/u pneumonia COMPARISON: Chest 04/17/2023. FINDINGS: No pneumothorax. The cardiac silhouette remains enlarged. Left lower lobe airspace opacity persists. This likely represents a pneumonia and could be due to aspiration. There is a trace left pl eural effusion. The right lung is clear. IMPRESSION: No significant change in the left lower lobe airspace opacity. This likely represents a pneumonia. On e-month chest radiograph follow-up recommended to ensure complete resolution. ACT 112: Negative or not required by law. Electronically signed by: Davy Cordova M.D. 04/19/2023 9:51 AM
[2023-04-19] MEDS: SODIUM CHLORIDE 0.9% 1000ML 1,000 ML IV SCH (12:38)
--- NOTE | 2023-04-19 14:55 | Discharge Summary ---
Date of Service April 19, 2023 Admission HPI Per Admitting Provider Lobito Carroll is a 72 year old male with a PMH of paroxysmal A. Fib, HTN, GERD, thoracic aortic aneurysm (stable), and anxiety who presented to the ED for worsening weakness. He has had diarrhea ongoing for 3 with 3-4 loose/watery bowel movements per day. He also has had poor intake of fluids (2 small cups of water per day) and has eaten little food. Notes a decreased amount of urine output in the same timeframe. No burning with urination or blood/change in color of bowel movements. His states he had a temperature to 100F last night and he has had some body aches. He states he is overall feeling very weak- notes it has been difficult to stand up from the couch. He has a history of vertigo and has also felt dizzy at times but has not had any falls. He denies any chest pain (note: he was seen in ED for chest pain with negative workup including CTA) or shortness of breath. He has had a cough on occasion when laying in bed at night but no orthopnea when laying flat. He lives at home with his . He states that his sodium is "usually low" but not this low. He notes that his unified communications architect changed his Losartan to Valsartan in the past few months but does not recall any additional recent medication changes. Principal Diagnosis Pneumonia, Hyponatremia Discharge Exam Constitutional: well-appearing, no acute distress HEENT: NCAT, no conjunctival injection CV: regular rhythm, no murmur appreciated, extremities well-perfused, no LE edema Resp: CTABL, no wheezes/rales/rhonchi appreciated, no increased work of breathing MSK: no gross deformities appreciated Skin: warm, dry, no rash appreciated Neuro: alert, oriented, no focal neurologic deficit appreciated Discharge Data Allergies Allergy/AdvReac Type Severity Reaction Status Date / Time bupropion Allergy Severe IRREGULAR Verified 04/17/23 17:09 HEARTBEAT/NAUSEA paroxetine Allergy Severe IRREGULAR Verified 04/17/23 17:09 HEARTBEAT/NAUSEA venlafaxine Allergy Intermediate IRREGULAR Verified 04/17/23 17:09 HEART BEAT warfarin Allergy Mild RASH Verified 04/17/23 17:09 Consultations 04/17/23 20:08 ED Decision to Admit Stat Ordered Studies Laboratory Results WBC 7.15 K/ul (4.8-10.8) 04/19/23 05:52 RBC 3.92 M/uL (4.70-6.10) L 04/19/23 05:52 Hgb 12.8 g/dl (14.0-18.0) L 04/19/23 05:52 Hct 35.3 % (42.0-52.0) L 04/19/23 05:52 MCV 90.1 fL (80.0-100.0) 04/19/23 05:52 MCH 32.7 pg (25.0-34.0) 04/19/23 05:52 MCHC 36.3 g/dL (32.0-36.0) H 04/19/23 05:52 RDW Std Deviation 38.4 fL (36.4-46.3) 04/19/23 05:52 RDW Coeff of Richard 11.7 % (11.5-14.5) 04/19/23 05:52 Plt Count 163 K/uL (130-400) 04/19/23 05:52 MPV 8.8 fL (9.4-12.4) L 04/19/23 05:52 Immature Gran % (Auto) 0.7 % 04/19/23 05:52 Neut % (Auto) 70.0 % 04/19/23 05:52 Lymph % (Auto) 11.5 % 04/19/23 05:52 [place] % (Auto) 16.9 % 04/19/23 05:52 Eos % (Auto) 0.6 % 04/19/23 05:52 Baso % (Auto) 0.3 % 04/19/23 05:52 Neut # (Auto) 5.01 K/uL (1.40-6.50) 04/19/23 05:52 Lymph # (Auto) 0.82 K/uL (1.2-3.4) L 04/19/23 05:52 [place] # (Auto) 1.21 K/uL (0.11-0.59) H 04/19/23 05:52 Eos # (Auto) 0.04 K/uL (0-0.50) 04/19/23 05:52 Baso # (Auto) 0.02 K/uL (0-0.2) 04/19/23 05:52 Immature Gran # (Auto) 0.05 K/uL (0.01-0.20) 04/19/23 05:52 PT 13.0 Seconds (9.0-12.0) H 04/17/23 Unknown INR 1.2 (0.9-1.1) H 04/17/23 Unknown APTT 32.1 Seconds (21.0-31.0) H 04/17/23 Unknown PTT Ratio 1.1 04/17/23 Unknown Sodium 126 mmol/L (136-145) L 04/19/23 05:52 Potassium 3.7 mmol/L (3.5-5.1) 04/19/23 05:52 Chloride 98 mmol/L (98-107) 04/19/23 05:52 Carbon Dioxide 21 mmol/L (21-32) 04/19/23 05:52 Anion Gap 7 (3-11) 04/19/23 05:52 BUN 8 mg/dl (6-23) 04/19/23 05:52 Creatinine 0.67 mg/dl (0.6-1.4) 04/19/23 05:52 Est Cr Clr Drug Dosing 126.0 ml/min 04/19/23 05:52 Est GFR ( Amer) 110.5 ml/min 04/19/23 05:52 Est GFR (Non-Af Amer) 95.3 ml/min 04/19/23 05:52 BUN/Creatinine Ratio 11.9 (10-20) 04/19/23 05:52 Glucose 97 mg/dl (70-99(Fasting)) 04/19/23 05:52 Osmolality 253 mOsm/kg (280-300) L 04/17/23 22:40 Lactate 0.8 mmol/L (0.4-2.0) 04/17/23 18:35 Calcium 8.0 mg/dl (8.6-10.3) L 04/19/23 05:52 Magnesium 1.8 mg/dl (1.7-2.4) 04/18/23 07:02 Total Bilirubin 1.1 mg/dl (0.2-1.0) H 04/17/23 Unknown Direct Bilirubin 0.3 mg/dl (0-0.2) H 04/17/23 Unknown AST 17 U/L (13-39) 04/17/23 Unknown ALT 16 U/L (7-52) 04/17/23 Unknown Alkaline Phosphatase 55 U/L (34-104) 04/17/23 Unknown Troponin I High Sens 10.4 pg/ml (0-20) 04/17/23 Unknown Total Protein 5.9 gm/dl (6.0-8.3) L 04/17/23 Unknown Albumin 3.6 gm/dl (3.4-5.0) 04/17/23 Unknown Procalcitonin 0.12 ng/ml (0-0.5) 04/17/23 Unknown Urine Color Dark Yellow 04/17/23 19:00 Urine Appearance Clear (Clear) 04/17/23 19:00 Urine pH 6.5 (4.5-7.5) 04/17/23 19:00 Ur Specific Cooper 1.026 (1.000-1.030) 04/17/23 19:00 Urine Protein 2+ (Negative) H 04/17/23 19:00 Urine Glucose (UA) Negative (Negative) 04/17/23 19:00 Urine Ketones 2+ (Negative) H 04/17/23 19:00 Urine Blood 2+ (Negative) H 04/17/23 19:00 Urine Nitrite Negative (Negative) 04/17/23 19:00 Urine Bilirubin 1+ (Negative) H 04/17/23 19:00 Urine Urobilinogen Negative (Negative) 04/17/23 19:00 Ur Leukocyte Esterase Negative (Negative) 04/17/23 19:00 Urine WBC (Auto) 1-5 /hpf (0-5) 04/17/23 19:00 Urine RBC (Auto) 10-30 /hpf (0-4) H 04/17/23 19:00 U Hyaline Cast (Auto) 1-5 /lpf (0-5) 04/17/23 19:00 U Epithel Cells (Auto) >30 /lpf (0-5) H 04/17/23 19:00 Urine Bacteria (Auto) Negative (Negative) 04/17/23 19:00 Ur Renal Epithelial Cell 0-5 /lpf (0-5) 04/17/23 19:00 Urine Osmolality 752 mOsm/kg (500-800) 04/17/23 19:00 Ur Random Sodium 35 mmol/L 04/17/23 19:00 Lyme Disease IgG Ab Negative (Negative) 04/17/23 Unknown Lyme Disease IgM Ab Negative (Negative) 04/17/23 Unknown SARS-CoV-2 (PCR) NEGATIVE (Negative) 04/17/23 19:00 Influenza Type A (PCR) Negative (Neg) 04/17/23 19:00 Influenza Type B (PCR) Negative (Neg) 04/17/23 19:00 RSV (RT-PCR) Negative (Neg) 04/17/23 19:00 Impressions Chest X-Ray 04/19/23 08:16 XR chest 2V PA/lateral HISTORY: Sepsis. f/u pneumonia COMPARISON: Chest 04/17/2023. FINDINGS: No pneumothorax. The cardiac silhouette remains enlarged. Left lower lobe airspace opacity persists. This likely represents a pneumonia and could be due to aspiration. There is a trace left pleural effusion. The right lung is clear. IMPRESSION: No significant change in the left lower lobe airspace opacity. This likely represents a pneumonia. One-month chest radiograph follow-up recommended to ensure complete resolution. ACT 112: Negative or not required by law. Electronically signed by: Davy Cordova M.D. 04/19/2023 9:51 AM Hospital Course (1) Generalized weakness: Lobito Carroll is a 72 year old male with a PMH of paroxysmal A. Fib, HTN, GERD, thoracic aortic aneurysm (stable), and anxiety who presented to the ED for worsening weakness and admitted due to hyponatremia. Pneumonia - CXR with left lower lobe opacity -Procal 0.12, Lactate 0.8 -COVID/FluA+B/RSV/Lyme testing all negative - Started on Ceftriaxone and doxycycline (concern for prolonged QTc with azithromycin) - Plan to d/c on Augmentin and Doxycycline x 7 days, if GI upset could consider stopping doxycylcine - F/u CXR in 1 month Hyponatremia -On admission Na of 119, up to 126 prior to d/c with IVF (NS) -Likely secondary to appetite and diarrhea -Patient is chronically hyponatremic to 125-low 130s, suspect this is worsened due to poor PO intake and diarrhea x3 days -Urine osmolality normal, urine sodium= 35 - Repeat BMP in 3 days. F/u with PCP next week. Paroxysmal Atrial Fibrillation -Continue Flecainide, Metoprolol, Eliquis, Felodipine. Will hold Valsartan for now. -EKG sinus rhythm, rate controlled Weakness/Deconditioning -Likely secondary to poor PO intake over several days -Encourage PO intake -PT/OT evaluated and recommended home Hypertension -Continue home Felodipine, Metoprolol, Valsartan Hyperlipidemia -Continue home statin Vertigo -Continue home Meclizine PRN Anxiety -Continue home Escitalopram, home Ativan PRN Enlarged Prostate -Continue home Flomax (2) Acute hyponatremia: (3) Hyponatremia: (4) Gait instability: (5) Vertigo: (6) Sensorineural hearing loss (SNHL) of left ear with restricted hearing of right ear: (7) Paroxysmal atrial fibrillation: (8) Thoracic aortic aneurysm: (9) Hyperlipidemia: (10) Chronic anticoagulation: (11) Irritable bowel syndrome: (12) Enlarged prostate with lower urinary tract symptoms (LUTS): Total Time Total Time Spent Total Time Spent (In Minutes): I spent 35 minutes examining the patient, reviewing treatment plan with him and his , reviewing lab data, and documenting. Discharge Plan Discharge Items Patient Disposition: Home - Self-Care Reason For Visit: HYPONATREMIA, WEAKNESS Discharge Diagnosis: Hyponatremia, Pneumonia Activity: Resume your previous activity Non-emergency contact: Primary Care Provider Call non-emergency contact if: you have any medication questions, your symptoms worsen and you have a fever Follow-up/Referrals: Shakila Harding MD [Primary Care Provider] - Diet: Regular Ambulatory Orders: Basic Metabolic Panel (Routine) Timeframe: 3 Days Location: Determined by Patient Ordered By: Yoli Winters Basic Metabolic Panel (Routine) Timeframe: 3 Days Location: Determined by Patient Ordered By: Yoli Winters Add Attending Provider Instructions: Hyponatremia (Low Sodium) We think that you sodium was low due to dehydration. We gave you fluids and your sodium improved. Please continue to drink plenty of fluids. We would like you to have your sodium rechecked on Friday and make an appointment to follow up with your primary care doctor next week. Pneumonia We started you on antibiotics for a pneumonia that we saw on your chest x-ray. I sent a total of 7 days of antibiotics to your pharmacy. There are 2 different antibiotics; doxycycline and Augmentin. Pending Studies at Discharge: No Stand-Alone Forms: My [facility] Medications and MI Order Prescriptions: New doxycycline hyclate 100 mg Capsule 100 mg PO BID 7 Days Qty: 14 0RF amoxicillin-pot clavulanate 875-125 mg tablet 1 tab PO Q12H 7 Days Qty: 14 0RF Continued flecainide 50 mg tablet 50 mg PO Q12H Qty: 180 3RF Eliquis 5 mg tablet 5 mg PO BID Qty: 180 3RF azelastine 137 mcg (0.1 %) aerosol,spray 2 spray intranasal DAILY PRN (Reason: congestion drainage) Qty: 30 1RF Rx Instructions: administer into each nostril tamsulosin 0.4 mg capsule 0.4 mg PO DAILY Qty: 30 2RF valsartan 160 mg tablet See Rx Instructions PO BID Qty: 60 2RF Rx Instructions: 1 tab in AM / 0.5 tab in PM lorazepam 0.5 mg tablet 0.5 mg PO HS PRN (Reason: anxiety and panic attacks) Qty: 90 0RF Hold Instructions: panic attacks only meclizine 12.5 mg tablet 12.5 mg PO BID PRN (Reason: dizziness) Qty: 1 0RF ciclopirox 0.77 % cream 1 applic topical BID Qty: 15 0RF atorvastatin [Lipitor] 10 mg tablet 10 mg PO DAILY Qty: 90 3RF Patient Comments: takes qam metoprolol tartrate 25 mg tablet 12.5 mg PO BID lysine 1,000 mg tablet 1,000 mg PO HS PRN (Reason: NEEDED PER PT.) fluocinolone acetonide oil 0.01 % drops 4 drp otic (ear) BID PRN (Reason: EAR ITCHINESS) Rx Instructions: Apply to affected ear BID 2-3 days/week PRN itchy ear prednisolone acetate 1 % drops,suspension 1 drp OPR HS Jublia 10 % solution with applicator 1 applic TOPICAL DAILY escitalopram oxalate 10 mg tablet 10 mg PO DAILY felodipine 2.5 mg tablet extended release 24 hr 2.5 mg PO DAILY Rx Instructions: Prescribed BID but patient only taking once daily (04/18/23) Discharge Orders: Discharge Order (Routine); Ordered 04/19/23 Ordered By: Yoli Winters Admission Data Admit Date/Time: 04/17/23 22:46 Attending Provider: Ronaldo Bahena Admit Provider: Nichole Lopez Primary Care Provider: Shakila Harding Other Providers: Keaton Arevalo Other Interventions: Discharge Summary Assessment (RN) Last Done: 04/19/23 14:41 Supervising Physician Co-Signing Physician Notes I also saw the patient and confirmed brown portions of the history and physical examination. Agree with the impression and plan as noted the resident documentation above. No complaints. Able to without difficulty. Denies any nausea/vomiting/diarrhea . No dyspnea. No current oxygen requirement. He has been afebrile. Exam 139/74, 67, 18, 37.5, 94% on room air Alert and oriented. Patient semireclined in bed; at bedside Upon my exam, decreased lung sounds left base. Data Hemoglobin 12.8, platelet count 163 Sodium 126, potassium 3.7, BUN 8, creatinine 0.67 Imaging Chest x-ray dated 04/17/2023 shows a new left lower lobe airspace opacity consistent with pneumonia Chest x-ray dated 04/19/2023 is unchanged from 04/17/2023. Micro Blood cultures dated 04/17/2023 show no growth Impression and plan Patient is feeling well today and would like to go home. With his improving serum sodium approaching his chronic baseline, I think this is reasonable. Discussed signs and symptoms for which he would need to return to the hospital. Discussed antibiotics and potential side effects, especially gastrointestinal. He is amenable to getting a repeat BMP in about 3 days (Friday). Hyponatremia, acute on chronic Acute worsening likely secondary to diarrheal illness, this on top of what appears to be a chronic hyponatremia Appropriate improvement with gentle hydration Mental status is clear; weakness is improving Pneumonia Present on chest x-ray 04/17, clear difference when compared to 04/11/2023 Continue antibiotics Additional per resident documentation Resident Activity Tracking Resident Involvement: Resident Care Provided Care Provided: Adult Hospital Medicine
[2023-04-19] MEDS ORDERED: AZITHROMYCIN 250 MG in DEXTROSE 5% 250 ML IV SCH (16:45)
== END 2023-04-19 15:54 | disposition home or self-care (01) | DRG 640 ==
LOC: ED 17:51 → SUATTDRO 22:46 → 2N 22:46